=== PATIENT | male | born 1960 | race Caucasian/White ===

== ENCOUNTER 2018-06-15 20:12 | Inpatient (IN) ==
--- NOTE | 2018-06-15 20:42 | ED ---
HPI General Chief complaint: Shortness of Breath/Dyspnea Stated complaint: confusion, trouble breathing Time Seen by Provider: 06/15/18 20:39 Source: patient History of Present Illness HPI narrative: The patient is a 58 year old male who presents to the [facility] emergency department with a history of a history of not feeling well since last week. The patient reports that he underwent endoscopy by a project developer, Dr. Muñoz and was diagnosed with gastroparesis. The patient reports that he was started on 2 new medications reports that he took them for 2 days and they were not helping, therefore he discontinued them. The patient reports that he is continued to have nausea and vomiting daily usually 3 -4 times per day. He denies having any associated diarrhea. He reports that his last bowel movement was yesterday. He denies having any blood in his stool , black or tarry stools, or mucus in his stool. He denies having any chest pain or chest pressure. He does report having some shortness of breath at first began this afternoon. He denies having any abdominal pain. He reports that he has had increasing generalized weakness and today a family member at the bedside reports that he has been confused, hallucinating, and also experiencing intermittent jerking movements today. His family member reports that she is concerned that his eyes have also appeared yellow. His primary care physician is Dr. Rutherford and Theresa Mccrary. The patient's other past medical history is complicated by being on immunosuppressive medications long- term related to a kidney transplant done in 1997. The patient has had a bilateral nephrectomy and has an ileal conduit in place. He reports that his urine has continued to be light yellow in color. He reports that he has continued to have good urine output. The patient reports that his back tender cylinder is and his creatinine on last evaluation was 4. On review of systems otherwise, the patient denies having any fevers, cough, congestion, neck pain, or other neurologic symptoms. Incidentally, the patient reports that for his symptoms he has been drinking Pepto-Bismol and Mylanta on a regular basis. Related Data Home Medications Medication Instructions Recorded Confirmed amlodipine 10 mg PO DAILY 06/15/18 06/15/18 atorvastatin 20 mg PO DAILY 06/15/18 06/15/18 calcitriol 0.5 mcg PO DAILY 06/15/18 06/15/18 cyanocobalamin (vitamin B-12) 1,000 mcg PO DAILY 06/15/18 06/15/18 doxycycline hyclate 100 mg PO DAILY 06/15/18 06/15/18 epoetin pedro [Procrit] 20,000 unit SUBCUT QMONTH 06/15/18 06/15/18 ondansetron HCl [Zofran] 8 mg PO TID PRN 06/15/18 06/15/18 oxycodone-acetaminophen 1 tab PO Q6H PRN 06/15/18 06/15/18 pantoprazole [Protonix] 40 mg PO DAILY 06/15/18 06/15/18 sirolimus 2 mg PO DAILY 06/15/18 06/15/18 tacrolimus 1 mg PO QAM 06/15/18 06/15/18 Allergies Allergy/AdvReac Type Severity Reaction Status Date / Time iron dextran complex Allergy rash Verified 06/15/18 21:01 Review of Systems ROS: all other systems reviewed are negative [facility] Family History Family History Other Family history normal Social History Social History Substance History: No History of Abuse Second Hand Smoke Exposure: No Smoking Status: Never smoker How Often Do You Have a Drink Containing Alcohol: Never Recent Travel in [facility] within the Last 8 Weeks: No Recent Out of Country Travel within the Last 8 Weeks: No Immunization History Tetanus Immunization: Unsure Exam Const General: cooperative, no acute distress and well developed Nutritional Appearance: well nourished Orientation: alert, awake, oriented to person, oriented to place, not oriented to time and confused [facility] Head: normocephalic and atraumatic Nose: no nasal discharge and no epistaxis Mouth: moist mucous membranes Throat: posterior oropharynx normal and uvula midline Eyes Sclera: normal sclerae Pupils: PERRL Neck Neck: no meningeal signs, trachea midline and no JVD Resp Effort & Inspection: no use of accessory muscles Auscultation: clear to auscultation bilaterally Cardio Rate: regular rate Rhythm: regular rhythm Heart Sounds: no murmurs GI Inspection: non-distended and other (The patient has an ileal conduit in place in the right lower quadrant of the abdomen. The patient has a palpable ventral abdominal hernia in the left upper quadrant of the abdomen that is easily reducible. The patient has reported mild discomfort on palpation of the left upper quadrant.) Palpation: soft, no hepatosplenomegaly and nontender Auscultation: normal bowel sounds Back/Spine/Pelvis Back: no CVA tenderness Cervical Spine: No cervical spinal tenderness Thoracic/Lumbar Spine: No thoracic spinal tenderness and No lumbar spinal tenderness Skin General: dry skin (warm) Neuro General: alert, awake and oriented (Oriented to person and place, however not time. The patient is drowsy on examination.) Cranial Nerves: CN's II-XI intact bilaterally Speech: speech normal Motor: movement abnormality noted (The patient has intermittent jerking movements noted.) and strength abnormal (Generalized weakness noted with 4/5 strength in all 4 extremities.) Sensory Exam: no sensory deficits noted Extrem General: normal to inspection (2+ pulses in all 4 extremities), no calf tenderness, no clubbing, no cyanosis and no edema Psych Mood: congruent mood Affect: normal affect Judgment: judgment good Course Initial Documented Vital Signs Temperature 98.8 F 06/15/18 20:18 Pulse Rate 92 H 06/15/18 20:18 Respiratory Rate 18 06/15/18 20:18 Blood Pressure 155/71 H 06/15/18 20:18 Pulse Oximetry 99 06/15/18 20:18 Last Documented Vital Signs Temperature 97.9 F 06/16/18 04:00 Pulse Rate 95 H 06/16/18 07:00 Respiratory Rate 10 L 06/16/18 07:00 Blood Pressure 158/75 H 06/16/18 07:00 Pulse Oximetry 97 06/16/18 07:47 Critical Care Time Critical Care Time: Yes Total Critical Care Time: 37 Attestation: Aggregate critical care time was 37 minutes. Time to perform other separately billable procedures was not included in the critical care time. My time did not include minutes spent treating any other patients simultaneously or on activities that did not directly contribute to the patient's treatment. The services I provided to this patient were to treat and/or prevent clinically significant deterioration that could result in: Electrolyte derangements such as hyperkalemia precipitating cardiac arrhythmia, versus pulmonary edema from renal failure, versus fluid overload from crystalloid resuscitation, versus respiratory failure I provided critical care services requiring my management, as noted below: Chart data review, documentation time, medication orders and management, vital sign assessments/reviewing monitor data, ordering and reviewing lab tests, ordering and interpreting/reviewing x-rays and diagnostic studies, care of the patient and discussion of the patient with the admitting physicians. Medical Decision Making MDM Narrative Medical decision making narrative: During the course of the patient's emergency department visit, the patient's history, examination, and differential diagnosis were reviewed with the patient. The patient was placed on a park attendant with oximetry and frequent blood pressure monitoring. The patient had IV access obtained and blood work sent for analysis. A diagnostic evaluation was started regarding the patient's altered mentation, nausea vomiting, recent diagnosis of gastroparesis. The patient was initially provided normal saline IV fluid bolus, Zofran 4 mg IV for nausea. The patient's diagnostic studies reveals a white count of 7.3, hemoglobin 10.3, platelets 315 with 87.8 neutrophils, PT PTT within normal limits, chemistry is remarkable for sodium of 133, potassium 5.2, CO2 18.4, anion gap is 16, BUN 135 , creatinine 15.65, GFR of 3, alkaline phosphatase 176, lipase within normal limits. The patient's lactic acid is 0.4, CPK is 151, troponin I is less than 0.02, BNP is 245. The patient's chest x-ray showed no acute abnormality. CT scan of the brain showed a motion degraded exam, grossly negative for acute intracranial process. CT scan of the abdomen and pelvis showed nonspecific CT appearance of the abdomen and pelvis with no definite acute findings. The patient is noted to be in acute on chronic renal failure. The patient will be admitted for continued evaluation and treatment. The patient's case including history, pertinent physical examination findings, and laboratory studies were discussed with Dr. Covarrubias. It was agreed that the patient would be admitted to the hospitalist service. The patient's results were discussed with the patient, including the plan of care. I explained that further testing and/ or monitoring is indicated based on the patient's history, examination, and/ or laboratory findings. Therefore, I recommended admission for additional evaluation. The patient expressed understanding and was agreeable with this plan. The patient was admitted to the hospital in guarded condition and sent to a bed under the care of the [facility] service. On evaluation by the hospitalist, Dr. Covarrubias approached me regarding the patient's case and explained that the patient seems more drowsy than previously. I went in to reexamine the patient with her. The patient quickly falls asleep in between questions and is not answering questions in the same way that he was previously. He seems to be having more jerking movements. There is a concern that the patient may be decompensating related to this renal failure. I placed a call out to the back tender cylinder, Dr. Wheeler and discussed the patient with him. The patient had an ABG done that revealed a pH of 7.12, PCO2 47, PO2 78, bicarb 15, base excess -13.2, this was on 3 L nasal cannula O2. The patient appears to becoming more acidotic related to his acute renal failure. He recommended that the patient be admitted to the intensive care unit and that the intensive care doctor place a Vas-Cath for emergent dialysis. This was communicated to the hospitalist, Dr. Covarrubias. She then spoke to Dr. Davison, the police sergeant precinct regarding this case who plans to place a Vas-Cath and then notify Dr. Mix when it is done so that the patient can have dialysis. The patient and the patient's family were updated regularly regarding this evaluation. Medical Screen Exam Complete: Yes Emergency Medical Condition: Yes Differential Diagnosis Differential Diagnosis: Hepatic encephalopathy, versus aspirin toxicity, versus intracranial abnormality, versus hypoglycemic altered mentation, versus electrolyte derangements with encephalopathy Medical Records Medical records reviewed: Yes I reviewed the patient's medical records. Lab Data Lab results reviewed: Yes I reviewed the patient's lab results. Result diagrams: 06/16/18 01:00 06/16/18 01:00 Lab Results 06/15/18 06/15/18 06/15/18 Range/Units 21:16 21:16 21:16 WBC (4.0-11.0) th/mm3 RBC (4.50-5.90) mil/mm3 Hgb (13.0-17.0) gm/dL Hct (39.0-51.0) % MCV (80.0-100.0) fL MCH (27.0-34.0) pg MCHC (32.0-36.0) % RDW (11.6-17.2) % Plt Count (150-450) th/mm3 MPV (7.0-11.0) fL Prelim Diff (Auto) Neut % (Auto) (16.0-70.0) % Lymph % (Auto) (9.0-44.0) % [facility] % (Auto) (0.0-8.0) % Eos % (Auto) (0.0-4.0) % Baso % (Auto) (0.0-2.0) % Neut # (Auto) (1.8-7.7) th/mm3 Lymph # (Auto) (1.0-4.8) th/mm3 [facility] # (Auto) (0.0-0.9) th/mm3 Eos # (Auto) (0.0-0.4) th/mm3 Baso # (Auto) (0.0-0.2) th/mm3 WBC Differential Diff Scan Seg Neuts % (Manual) (16-70) % Band Neuts % (Manual) (0-6) % Lymphocytes % (Manual) (9-44) % Monocytes % (Manual) (0-8) % Eosinophils % (Manual) (0-4) % Abs Neuts (Manual) (1.8-7.7) th/mm3 Differential Comment Toxic Granulation (None) Toxic Vacuolation (None) Platelet Estimate (Normal) Platelet Morphology (Normal) Ovalocytes (None) Acanthocytes (Spur) (None) Keratocytes (None) PT 10.9 (9.8-11.6) sec INR 1.1 Ratio APTT 31.7 (23.4-31.7) sec Puncture Site Patient Temperature O2 Saturation (90-100) % ABG pH (7.380-7.420) ABG pCO2 (38-42) mmHg ABG pO2 (61-120) mmHg ABG HCO3 (22-26) mmol/L ABG O2 Content (12.0-20.0) Vol % ABG Base Excess (-2-2) mmol/L ABG Methemoglobin (0-2) % Hemoglobin (12.0-16.0) G/DL Carboxyhemoglobin (0-4) % O2 Delivery Device Liter Flow L/M Critical Value Sodium (136-145) meq/L Potassium (3.5-5.1) meq/L Chloride (98-107) meq/L Carbon Dioxide (21.0-32.0) meq/L Anion Gap (5-15) meq/L BUN (7-18) mg/dL Creatinine (0.60-1.30) mg/dL Estimated GFR (>89) mL/min POC Glucose (68-110) mg/dl Random Glucose (74-106) mg/dL Lactic Acid 0.4 (0.4-2.0) mmol/L Calcium (8.5-10.1) mg/dL Magnesium 2.7 H (1.5-2.5) mg/dL Total Bilirubin (0.2-1.0) mg/dL AST (15-37) U/L ALT (12-78) U/L Alkaline Phosphatase (45-117) U/L Ammonia (11-32) mcmol/L Total Creatine Kinase 151 (39-308) U/L CK-MB (CK-2) 3.9 H (0.5-3.6) ng/mL Troponin I Less than 0.02 L (0.02-0.05) ng/mL B-Natriuretic Peptide (0-100) pg/mL Total Protein (6.4-8.2) g/dL Albumin (3.4-5.0) g/dL Lipase (73-393) U/L Urine Color (Yellw/Straw) Urine Clarity (Clear) Urine pH (5.0-8.5) Ur Specific [place] (1.002-1.035) Urine Protein (Neg-Trace) mg/dL Urine Glucose (UA) (Negative) mg/dL Urine Ketones (Negative) mg/dL Urine Occult Blood (Negative) Urine Nitrate (Negative) Urine Bilirubin (Negative) Urine Urobilinogen (Less than 2) mg/dL Ur Leukocyte Esterase (Negative) Urine RBC (0-3) /hpf Urine WBC (0-5) /hpf Urine WBC Clumps (None) Amorphous Sediment (None) /hpf Urine Bacteria (None) /hpf Urine Mucus (Occasional) /lpf Micro UA Comment Ur Microscopic Review Urine Culture Comments Nasal Screen MRSA (PCR) (Negative) Salicylates (2.8-20.0) mg/dL Acetaminophen (10.0-30.0) mcg/mL Hepatitis A IgM Ab (Nonreactive) Hep Bs Antigen (Nonreactive) Hep B Core IgM Ab (Nonreactive) Hep C IgG Ab (Nonreactive) 06/15/18 06/15/18 06/15/18 Range/Units 21:16 21:16 21:16 WBC 7.3 (4.0-11.0) th/mm3 RBC 3.81 L (4.50-5.90) mil/mm3 Hgb 10.3 L (13.0-17.0) gm/dL Hct 31.2 L (39.0-51.0) % MCV 81.9 (80.0-100.0) fL MCH 27.0 (27.0-34.0) pg MCHC 33.0 (32.0-36.0) % RDW 16.2 (11.6-17.2) % Plt Count 315 (150-450) th/mm3 MPV 7.4 (7.0-11.0) fL Prelim Diff (Auto) Slide review pending Neut % (Auto) 87.8 H (16.0-70.0) % Lymph % (Auto) 5.9 L (9.0-44.0) % [facility] [facility] % (Auto) 5.4 (0.0-8.0) % Eos % (Auto) 0.4 (0.0-4.0) % Baso % (Auto) 0.5 (0.0-2.0) % Neut # (Auto) 6.4 (1.8-7.7) th/mm3 Lymph # (Auto) 0.4 L (1.0-4.8) th/mm3 [facility] [facility] # (Auto) 0.4 (0.0-0.9) th/mm3 Eos # (Auto) 0.0 (0.0-0.4) th/mm3 Baso # (Auto) 0.0 (0.0-0.2) th/mm3 WBC Differential Manual diff final Diff Scan Seg Neuts % (Manual) 78 H (16-70) % Band Neuts % (Manual) 1 (0-6) % Lymphocytes % (Manual) 15 (9-44) % Monocytes % (Manual) 5 (0-8) % Eosinophils % (Manual) 1 (0-4) % Abs Neuts (Manual) 5.8 (1.8-7.7) th/mm3 Differential Comment . Toxic Granulation 2+ H (None) Toxic Vacuolation (None) Platelet Estimate Normal (Normal) Platelet Morphology Normal (Normal) Ovalocytes 1+ H (None) Acanthocytes (Spur) (None) Keratocytes Occ H (None) PT (9.8-11.6) sec INR Ratio APTT (23.4-31.7) sec Puncture Site Patient Temperature O2 Saturation (90-100) % ABG pH (7.380-7.420) ABG pCO2 (38-42) mmHg ABG pO2 (61-120) mmHg ABG HCO3 (22-26) mmol/L ABG O2 Content (12.0-20.0) Vol % ABG Base Excess (-2-2) mmol/L ABG Methemoglobin (0-2) % Hemoglobin (12.0-16.0) G/DL Carboxyhemoglobin (0-4) % O2 Delivery Device Liter Flow L/M Critical Value Sodium (136-145) meq/L Potassium (3.5-5.1) meq/L Chloride (98-107) meq/L Carbon Dioxide (21.0-32.0) meq/L Anion Gap (5-15) meq/L BUN (7-18) mg/dL Creatinine (0.60-1.30) mg/dL Estimated GFR (>89) mL/min POC Glucose (68-110) mg/dl Random Glucose (74-106) mg/dL Lactic Acid (0.4-2.0) mmol/L Calcium (8.5-10.1) mg/dL Magnesium (1.5-2.5) mg/dL Total Bilirubin (0.2-1.0) mg/dL AST (15-37) U/L ALT (12-78) U/L Alkaline Phosphatase (45-117) U/L Ammonia 22 (11-32) mcmol/L Total Creatine Kinase (39-308) U/L CK-MB (CK-2) (0.5-3.6) ng/mL Troponin I (0.02-0.05) ng/mL B-Natriuretic Peptide 245 H (0-100) pg/mL Total Protein (6.4-8.2) g/dL Albumin (3.4-5.0) g/dL Lipase (73-393) U/L Urine Color (Yellw/Straw) Urine Clarity (Clear) Urine pH (5.0-8.5) Ur Specific [place] (1.002-1.035) Urine Protein (Neg-Trace) mg/dL Urine Glucose (UA) (Negative) mg/dL Urine Ketones (Negative) mg/dL Urine Occult Blood (Negative) Urine Nitrate (Negative) Urine Bilirubin (Negative) Urine Urobilinogen (Less than 2) mg/dL Ur Leukocyte Esterase (Negative) Urine RBC (0-3) /hpf Urine WBC (0-5) /hpf Urine WBC Clumps (None) Amorphous Sediment (None) /hpf Urine Bacteria (None) /hpf Urine Mucus (Occasional) /lpf Micro UA Comment Ur Microscopic Review Urine Culture Comments Nasal Screen MRSA (PCR) (Negative) Salicylates (2.8-20.0) mg/dL Acetaminophen (10.0-30.0) mcg/mL Hepatitis A IgM Ab (Nonreactive) Hep Bs Antigen (Nonreactive) Hep B Core IgM Ab (Nonreactive) Hep C IgG Ab (Nonreactive) 06/15/18 06/15/18 06/15/18 Range/Units 21:16 21:16 21:16 WBC (4.0-11.0) th/mm3 RBC (4.50-5.90) mil/mm3 Hgb (13.0-17.0) gm/dL Hct (39.0-51.0) % MCV (80.0-100.0) fL MCH (27.0-34.0) pg MCHC (32.0-36.0) % RDW (11.6-17.2) % Plt Count (150-450) th/mm3 MPV (7.0-11.0) fL Prelim Diff (Auto) Neut % (Auto) (16.0-70.0) % Lymph % (Auto) (9.0-44.0) % [facility] [facility] % (Auto) (0.0-8.0) % Eos % (Auto) (0.0-4.0) % Baso % (Auto) (0.0-2.0) % Neut # (Auto) (1.8-7.7) th/mm3 Lymph # (Auto) (1.0-4.8) th/mm3 [facility] [facility] # (Auto) (0.0-0.9) th/mm3 Eos # (Auto) (0.0-0.4) th/mm3 Baso # (Auto) (0.0-0.2) th/mm3 WBC Differential Diff Scan Seg Neuts % (Manual) (16-70) % Band Neuts % (Manual) (0-6) % Lymphocytes % (Manual) (9-44) % Monocytes % (Manual) (0-8) % Eosinophils % (Manual) (0-4) % Abs Neuts (Manual) (1.8-7.7) th/mm3 Differential Comment Toxic Granulation (None) Toxic Vacuolation (None) Platelet Estimate (Normal) Platelet Morphology (Normal) Ovalocytes (None) Acanthocytes (Spur) (None) Keratocytes (None) PT (9.8-11.6) sec INR Ratio APTT (23.4-31.7) sec Puncture Site Patient Temperature O2 Saturation (90-100) % ABG pH (7.380-7.420) ABG pCO2 (38-42) mmHg ABG pO2 (61-120) mmHg ABG HCO3 (22-26) mmol/L ABG O2 Content (12.0-20.0) Vol % ABG Base Excess (-2-2) mmol/L ABG Methemoglobin (0-2) % Hemoglobin (12.0-16.0) G/DL Carboxyhemoglobin (0-4) % O2 Delivery Device Liter Flow L/M Critical Value Sodium 133 L (136-145) meq/L Potassium 5.2 H (3.5-5.1) meq/L Chloride 99 (98-107) meq/L Carbon Dioxide 18.4 L (21.0-32.0) meq/L Anion Gap 16 H (5-15) meq/L BUN 135 H (7-18) mg/dL Creatinine 15.65 H* (0.60-1.30) mg/dL Estimated GFR 3 L (>89) mL/min POC Glucose (68-110) mg/dl Random Glucose 98 (74-106) mg/dL Lactic Acid (0.4-2.0) mmol/L Calcium 8.8 (8.5-10.1) mg/dL Magnesium (1.5-2.5) mg/dL Total Bilirubin 0.3 (0.2-1.0) mg/dL AST 15 (15-37) U/L ALT 28 (12-78) U/L Alkaline Phosphatase 176 H (45-117) U/L Ammonia (11-32) mcmol/L Total Creatine Kinase (39-308) U/L CK-MB (CK-2) (0.5-3.6) ng/mL Troponin I (0.02-0.05) ng/mL B-Natriuretic Peptide (0-100) pg/mL Total Protein 8.2 (6.4-8.2) g/dL Albumin 3.8 (3.4-5.0) g/dL Lipase 134 (73-393) U/L Urine Color (Yellw/Straw) Urine Clarity (Clear) Urine pH (5.0-8.5) Ur Specific [place] (1.002-1.035) Urine Protein (Neg-Trace) mg/dL Urine Glucose (UA) (Negative) mg/dL Urine Ketones (Negative) mg/dL Urine Occult Blood (Negative) Urine Nitrate (Negative) Urine Bilirubin (Negative) Urine Urobilinogen (Less than 2) mg/dL Ur Leukocyte Esterase (Negative) Urine RBC (0-3) /hpf Urine WBC (0-5) /hpf Urine WBC Clumps (None) Amorphous Sediment (None) /hpf Urine Bacteria (None) /hpf Urine Mucus (Occasional) /lpf Micro UA Comment Ur Microscopic Review Urine Culture Comments Nasal Screen MRSA (PCR) (Negative) Salicylates 2.9 (2.8-20.0) mg/dL Acetaminophen Less than 2.0 L (10.0-30.0) mcg/mL Hepatitis A IgM Ab (Nonreactive) Hep Bs Antigen (Nonreactive) Hep B Core IgM Ab (Nonreactive) Hep C IgG Ab (Nonreactive) 06/15/18 06/16/18 06/16/18 Range/Units 21:25 00:00 00:50 WBC (4.0-11.0) th/mm3 RBC (4.50-5.90) mil/mm3 Hgb (13.0-17.0) gm/dL Hct (39.0-51.0) % MCV (80.0-100.0) fL MCH (27.0-34.0) pg MCHC (32.0-36.0) % RDW (11.6-17.2) % Plt Count (150-450) th/mm3 MPV (7.0-11.0) fL Prelim Diff (Auto) Neut % (Auto) (16.0-70.0) % Lymph % (Auto) (9.0-44.0) % [facility] [facility] % (Auto) (0.0-8.0) % Eos % (Auto) (0.0-4.0) % Baso % (Auto) (0.0-2.0) % Neut # (Auto) (1.8-7.7) th/mm3 Lymph # (Auto) (1.0-4.8) th/mm3 [facility] # (Auto) (0.0-0.9) th/mm3 Eos # (Auto) (0.0-0.4) th/mm3 Baso # (Auto) (0.0-0.2) th/mm3 WBC Differential Diff Scan Seg Neuts % (Manual) (16-70) % Band Neuts % (Manual) (0-6) % Lymphocytes % (Manual) (9-44) % Monocytes % (Manual) (0-8) % Eosinophils % (Manual) (0-4) % Abs Neuts (Manual) (1.8-7.7) th/mm3 Differential Comment Toxic Granulation (None) Toxic Vacuolation (None) Platelet Estimate (Normal) Platelet Morphology (Normal) Ovalocytes (None) Acanthocytes (Spur) (None) Keratocytes (None) PT (9.8-11.6) sec INR Ratio APTT (23.4-31.7) sec Puncture Site Right brachial Patient Temperature 98.6 O2 Saturation 90 (90-100) % ABG pH 7.12 L* (7.380-7.420) ABG pCO2 47 H (38-42) mmHg ABG pO2 78 (61-120) mmHg ABG HCO3 15 L* (22-26) mmol/L ABG O2 Content 10.7 L (12.0-20.0) Vol % ABG Base Excess -13.2 L (-2-2) mmol/L ABG Methemoglobin 0.7 (0-2) % Hemoglobin 8.4 L (12.0-16.0) G/DL Carboxyhemoglobin 0.6 (0-4) % O2 Delivery Device Nasal cannula Liter Flow 3.00 L/M Critical Value Yes Sodium (136-145) meq/L Potassium (3.5-5.1) meq/L Chloride (98-107) meq/L Carbon Dioxide (21.0-32.0) meq/L Anion Gap (5-15) meq/L BUN (7-18) mg/dL Creatinine (0.60-1.30) mg/dL Estimated GFR (>89) mL/min POC Glucose 113 H (68-110) mg/dl Random Glucose (74-106) mg/dL Lactic Acid (0.4-2.0) mmol/L Calcium (8.5-10.1) mg/dL Magnesium (1.5-2.5) mg/dL Total Bilirubin (0.2-1.0) mg/dL AST (15-37) U/L ALT (12-78) U/L Alkaline Phosphatase (45-117) U/L Ammonia (11-32) mcmol/L Total Creatine Kinase (39-308) U/L CK-MB (CK-2) (0.5-3.6) ng/mL Troponin I (0.02-0.05) ng/mL B-Natriuretic Peptide (0-100) pg/mL Total Protein (6.4-8.2) g/dL Albumin (3.4-5.0) g/dL Lipase (73-393) U/L Urine Color Yellow (Yellw/Straw) Urine Clarity Cloudy H (Clear) Urine pH 5.0 (5.0-8.5) Ur Specific [place] 1.009 (1.002-1.035) Urine Protein 100 H (Neg-Trace) mg/dL Urine Glucose (UA) Negative (Negative) mg/dL Urine Ketones Negative (Negative) mg/dL Urine Occult Blood Moderate H (Negative) Urine Nitrate Negative (Negative) Urine Bilirubin Negative (Negative) Urine Urobilinogen Less than 2 (Less than 2) mg/dL Ur Leukocyte Esterase Large H (Negative) Urine RBC 3 (0-3) /hpf Urine WBC 145 H (0-5) /hpf Urine WBC Clumps Many H (None) Amorphous Sediment Rare H (None) /hpf Urine Bacteria Many H (None) /hpf Urine Mucus Few H (Occasional) /lpf Micro UA Comment Culture indicated Ur Microscopic Review Not Reportable Urine Culture Comments Culture indicated Nasal Screen MRSA (PCR) (Negative) Salicylates (2.8-20.0) mg/dL Acetaminophen (10.0-30.0) mcg/mL Hepatitis A IgM Ab (Nonreactive) Hep Bs Antigen (Nonreactive) Hep B Core IgM Ab (Nonreactive) Hep C IgG Ab (Nonreactive) 06/16/18 06/16/18 06/16/18 Range/Units 01:00 01:00 01:00 WBC 7.1 (4.0-11.0) th/mm3 RBC 3.29 L (4.50-5.90) mil/mm3 Hgb 8.7 L (13.0-17.0) gm/dL Hct 27.2 L (39.0-51.0) % MCV 82.7 (80.0-100.0) fL MCH 26.6 L (27.0-34.0) pg MCHC 32.2 (32.0-36.0) % RDW 16.6 (11.6-17.2) % Plt Count 268 (150-450) th/mm3 MPV 7.6 (7.0-11.0) fL Prelim Diff (Auto) Slide review pending Neut % (Auto) 84.6 H (16.0-70.0) % Lymph % (Auto) 8.0 L (9.0-44.0) % [facility] % (Auto) 6.6 (0.0-8.0) % Eos % (Auto) 0.4 (0.0-4.0) % Baso % (Auto) 0.4 (0.0-2.0) % Neut # (Auto) 6.0 (1.8-7.7) th/mm3 Lymph # (Auto) 0.6 L (1.0-4.8) th/mm3 [facility] # (Auto) 0.5 (0.0-0.9) th/mm3 Eos # (Auto) 0.0 (0.0-0.4) th/mm3 Baso # (Auto) 0.0 (0.0-0.2) th/mm3 WBC Differential . Diff Scan Auto diff confirmed Seg Neuts % (Manual) (16-70) % Band Neuts % (Manual) (0-6) % Lymphocytes % (Manual) (9-44) % Monocytes % (Manual) (0-8) % Eosinophils % (Manual) (0-4) % Abs Neuts (Manual) (1.8-7.7) th/mm3 Differential Comment . Toxic Granulation (None) Toxic Vacuolation Present H (None) Platelet Estimate Normal (Normal) Platelet Morphology Normal (Normal) Ovalocytes 1+ H (None) Acanthocytes (Spur) Occ H (None) Keratocytes Occ H (None) PT (9.8-11.6) sec INR Ratio APTT (23.4-31.7) sec Puncture Site Patient Temperature O2 Saturation (90-100) % ABG pH (7.380-7.420) ABG pCO2 (38-42) mmHg ABG pO2 (61-120) mmHg ABG HCO3 (22-26) mmol/L ABG O2 Content (12.0-20.0) Vol % ABG Base Excess (-2-2) mmol/L ABG Methemoglobin (0-2) % Hemoglobin (12.0-16.0) G/DL Carboxyhemoglobin (0-4) % O2 Delivery Device Liter Flow L/M Critical Value Sodium 137 (136-145) meq/L Potassium 5.1 (3.5-5.1) meq/L Chloride 105 (98-107) meq/L Carbon Dioxide 17.5 L (21.0-32.0) meq/L Anion Gap 15 (5-15) meq/L BUN 132 H (7-18) mg/dL Creatinine 15.27 H* (0.60-1.30) mg/dL Estimated GFR 3 L (>89) mL/min POC Glucose (68-110) mg/dl Random Glucose 89 (74-106) mg/dL Lactic Acid 0.4 (0.4-2.0) mmol/L Calcium 8.2 L (8.5-10.1) mg/dL Magnesium 2.7 H (1.5-2.5) mg/dL Total Bilirubin 0.3 (0.2-1.0) mg/dL AST 13 L (15-37) U/L ALT 23 (12-78) U/L Alkaline Phosphatase 151 H (45-117) U/L Ammonia (11-32) mcmol/L Total Creatine Kinase (39-308) U/L CK-MB (CK-2) (0.5-3.6) ng/mL Troponin I (0.02-0.05) ng/mL B-Natriuretic Peptide (0-100) pg/mL Total Protein 6.8 D (6.4-8.2) g/dL Albumin 3.1 L D (3.4-5.0) g/dL Lipase (73-393) U/L Urine Color (Yellw/Straw) Urine Clarity (Clear) Urine pH (5.0-8.5) Ur Specific [place] (1.002-1.035) Urine Protein (Neg-Trace) mg/dL Urine Glucose (UA) (Negative) mg/dL Urine Ketones (Negative) mg/dL Urine Occult Blood (Negative) Urine Nitrate (Negative) Urine Bilirubin (Negative) Urine Urobilinogen (Less than 2) mg/dL Ur Leukocyte Esterase (Negative) Urine RBC (0-3) /hpf Urine WBC (0-5) /hpf Urine WBC Clumps (None) Amorphous Sediment (None) /hpf Urine Bacteria (None) /hpf Urine Mucus (Occasional) /lpf Micro UA Comment Ur Microscopic Review Urine Culture Comments Nasal Screen MRSA (PCR) (Negative) Salicylates (2.8-20.0) mg/dL Acetaminophen (10.0-30.0) mcg/mL Hepatitis A IgM Ab (Nonreactive) Hep Bs Antigen (Nonreactive) Hep B Core IgM Ab (Nonreactive) Hep C IgG Ab (Nonreactive) 06/16/18 06/16/18 Range/Units 02:55 04:10 WBC (4.0-11.0) th/mm3 RBC (4.50-5.90) mil/mm3 Hgb (13.0-17.0) gm/dL Hct (39.0-51.0) % MCV (80.0-100.0) fL MCH (27.0-34.0) pg MCHC (32.0-36.0) % RDW (11.6-17.2) % Plt Count (150-450) th/mm3 MPV (7.0-11.0) fL Prelim Diff (Auto) Neut % (Auto) (16.0-70.0) % Lymph % (Auto) (9.0-44.0) % [place] % (Auto) (0.0-8.0) % Eos % (Auto) (0.0-4.0) % Baso % (Auto) (0.0-2.0) % Neut # (Auto) (1.8-7.7) th/mm3 Lymph # (Auto) (1.0-4.8) th/mm3 [place] # (Auto) (0.0-0.9) th/mm3 Eos # (Auto) (0.0-0.4) th/mm3 Baso # (Auto) (0.0-0.2) th/mm3 WBC Differential Diff Scan Seg Neuts % (Manual) (16-70) % Band Neuts % (Manual) (0-6) % Lymphocytes % (Manual) (9-44) % Monocytes % (Manual) (0-8) % Eosinophils % (Manual) (0-4) % Abs Neuts (Manual) (1.8-7.7) th/mm3 Differential Comment Toxic Granulation (None) Toxic Vacuolation (None) Platelet Estimate (Normal) Platelet Morphology (Normal) Ovalocytes (None) Acanthocytes (Spur) (None) Keratocytes (None) PT (9.8-11.6) sec INR Ratio APTT (23.4-31.7) sec Puncture Site Patient Temperature O2 Saturation (90-100) % ABG pH (7.380-7.420) ABG pCO2 (38-42) mmHg ABG pO2 (61-120) mmHg ABG HCO3 (22-26) mmol/L ABG O2 Content (12.0-20.0) Vol % ABG Base Excess (-2-2) mmol/L ABG Methemoglobin (0-2) % Hemoglobin (12.0-16.0) G/DL Carboxyhemoglobin (0-4) % O2 Delivery Device Liter Flow L/M Critical Value Sodium (136-145) meq/L Potassium (3.5-5.1) meq/L Chloride (98-107) meq/L Carbon Dioxide (21.0-32.0) meq/L Anion Gap (5-15) meq/L BUN (7-18) mg/dL Creatinine (0.60-1.30) mg/dL Estimated GFR (>89) mL/min POC Glucose (68-110) mg/dl Random Glucose (74-106) mg/dL Lactic Acid (0.4-2.0) mmol/L Calcium (8.5-10.1) mg/dL Magnesium (1.5-2.5) mg/dL Total Bilirubin (0.2-1.0) mg/dL AST (15-37) U/L ALT (12-78) U/L Alkaline Phosphatase (45-117) U/L Ammonia (11-32) mcmol/L Total Creatine Kinase (39-308) U/L CK-MB (CK-2) (0.5-3.6) ng/mL Troponin I (0.02-0.05) ng/mL B-Natriuretic Peptide (0-100) pg/mL Total Protein (6.4-8.2) g/dL Albumin (3.4-5.0) g/dL Lipase (73-393) U/L Urine Color (Yellw/Straw) Urine Clarity (Clear) Urine pH (5.0-8.5) Ur Specific [place] (1.002-1.035) Urine Protein (Neg-Trace) mg/dL Urine Glucose (UA) (Negative) mg/dL Urine Ketones (Negative) mg/dL Urine Occult Blood (Negative) Urine Nitrate (Negative) Urine Bilirubin (Negative) Urine Urobilinogen (Less than 2) mg/dL Ur Leukocyte Esterase (Negative) Urine RBC (0-3) /hpf Urine WBC (0-5) /hpf Urine WBC Clumps (None) Amorphous Sediment (None) /hpf Urine Bacteria (None) /hpf Urine Mucus (Occasional) /lpf Micro UA Comment Ur Microscopic Review Urine Culture Comments Nasal Screen MRSA (PCR) Not detected (Negative) Salicylates (2.8-20.0) mg/dL Acetaminophen (10.0-30.0) mcg/mL Hepatitis A IgM Ab Nonreactive (Nonreactive) Hep Bs Antigen Nonreactive (Nonreactive) Hep B Core IgM Ab Nonreactive (Nonreactive) Hep C IgG Ab Nonreactive (Nonreactive) Imaging Data Radiologist's impression: Abdomen/Pelvis CT 06/15/18 21:01 CONCLUSION: Nonspecific CT appearance of the abdomen and pelvis with no definite acute findings. Chest X-Ray 06/15/18 21:01 CONCLUSION: The lungs are clear. Head CT 06/15/18 21:22 CONCLUSION: Motion degraded exam grossly negative for acute intracranial process. . Head MRI 06/16/18 00:00 CONCLUSION: No acute intracranial findings Chest X-Ray 06/16/18 02:04 CONCLUSION: Vas catheter in satisfactory position. Vascular congestion and developing parenchymal edema. ECG Data Attestation: I personally reviewed and interpreted this ECG as follows: Interpretation: The patient had an EKG done on arrival. The patient's EKG reveals a sinus rhythm heart rate of 89, QRS duration 93 ms, QTC 402 ms. QRS duration is 93 ms, QTC [address] segment elevation. T waves are inverted in aVL. Discharge Plan Discharge Disposition Patient Disposition: ED Admit(ED Internal Use Only) Discharge Order Discharge Orders: ED Use Only Admit Order (Routine); Ordered 06/15/18 Ordered By: Chika Galeana Discharge Details Diagnosis: Acute renal failure, Vomiting Physicians Team ED Provider: Chika Galeana Primary Care Provider: Primary Care Jo Zhong Attending Provider: Hood Glover Other Providers: Timo Mix Discharge Interventions Interventions: Vital Signs Last Done: 06/16/18 00:01 ED Discharge Assessment Last Done: 06/16/18 02:59 Status ED Status: Left Department Discharge Information Discharge Date/Time: 06/16/18 03:05
[2018-06-15] MEDS ORDERED: Sod Chloride 0.9% Inj 1,000 ML IV.SIG ONE (21:01)
[2018-06-15 21:29] LABS: Baso % (Auto) 0.5 % (0.0-2.0); Eos % (Auto) 0.4 % (0.0-4.0); Hematocrit 31.2 % (39.0-51.0); Hemoglobin 10.3 gm/dL (13.0-17.0); Lymph # (Auto) 0.4 th/mm3 (1.0-4.8); Lymph % (Auto) 5.9 % (9.0-44.0); Mean Corpuscular Volume 81.9 fL (80.0-100.0); Mean Platelet Volume 7.4 fL (7.0-11.0); Mono # (Auto) 0.4 th/mm3 (0.0-0.9); Mono % (Auto) 5.4 % (0.0-8.0); Neut # (Auto) 6.4 th/mm3 (1.8-7.7); Neut % (Auto) 87.8 % (16.0-70.0); Platelet Count 315 th/mm3 (150-450); Red Blood Count 3.81 mil/mm3 (4.50-5.90); Red Cell Distribution Width 16.2 % (11.6-17.2); White Blood Count 7.3 th/mm3 (4.0-11.0)
--- NOTE | 2018-06-15 21:38 | XR ---
EXAM DATE: 06/15/2018 9:36 PM EST AGE/SEX: 58 years / Male INDICATIONS: Short of breath. CLINICAL DATA: This is the patient's initial encounter. Patient reports that signs and symptoms have been present for 1 week and indicates a pain score of 3/10. MEDICAL/SURGICAL HISTORY: Hypertension. Gastroparesis. Hyperlipidemia. Spina bifida. Spinal cor d stimulator . COMPARISON: No prior exams available for comparison. FINDINGS: A single AP view of the chest demonstrates the lungs to be symmetrically aerated without evidence of mass, infiltrate or effusion. The cardiomediastinal contours are unremarkable. Osseous structures a re intact. CONCLUSION: The lungs are clear. Electronically signed by: Myron Aaron MD Board Certified Radiologist 06/15/2018 9:37 PM EST
[2018-06-15 21:46] LABS: Activated Partial Thrombo Time 31.7 sec (23.4-31.7); INR 1.1 Ratio; Prothrombin Time 10.9 sec (9.8-11.6)
[2018-06-15 22:00] LABS: Albumin 3.8 g/dL (3.4-5.0); Anion Gap 16 meq/L (5-15); Aspartate Aminotransferase 15 U/L (15-37); Blood Urea Nitrogen 135 mg/dL (7-18); Calcium 8.8 mg/dL (8.5-10.1); Carbon Dioxide 18.4 meq/L (21.0-32.0); Chloride 99 meq/L (98-107); Glomerular Filtration Rate 3 mL/min (>89); Glucose,Random 98 mg/dL (74-106); Lipase 134 U/L (73-393); Potassium 5.2 meq/L (3.5-5.1); Sodium 133 meq/L (136-145)
[2018-06-15 22:02] LABS: Alanine Aminotransferase 28 U/L (12-78); Magnesium 2.7 mg/dL (1.5-2.5)
[2018-06-15 22:04] LABS: Alkaline Phosphatase 176 U/L (45-117); Total Protein 8.2 g/dL (6.4-8.2)
[2018-06-15 22:05] LABS: Creatine Kinase 151 U/L (39-308)
[2018-06-15 22:08] LABS: Eosinophils 1 % (0-4); Lymphocytes 15 % (9-44); Monocytes 5 % (0-8); Ovalocytes 1+
[2018-06-15 22:09] LABS: Platelet Estimate Normal (Normal); Platelet Morphology Normal (Normal); Toxic Granulation 2+
[2018-06-15 22:18] LABS: Creatine Kinase MB 3.9 ng/mL (0.5-3.6)
--- NOTE | 2018-06-15 23:39 | CT ---
EXAM DATE: 06/15/2018 11:32 PM EST AGE/SEX: 58 years / Male INDICATIONS: Confusion. CLINICAL DATA: This is the patient's initial encounter. Patient reports that signs and symptoms have been present for 2 days and indicates a pain score of 7/10. MEDICAL/SURGICAL HISTORY: Gastroparesis. Hypertension. Hyperlipidemia Renal transplant. 1990 RADIATION DOSE: 56.35 CTDI (mGy) COMPARISON: No prior exams available for comparison. TECHNIQUE: CT of the head without contrast. Using automated exposure control and adjustment of the mA and/or kV according to patient size, radiation dose was kept as low as reasonably achievable to ob tain optimal diagnostic quality images. DICOM format image data is available electronically for revi ew and comparison. FINDINGS: The study is mildly degraded by patient motion. Grossly, there is no evidence of hemorrhage. There is no evidence of mass or abnormal fluid accumulation. Ventricles are symmetric and normal. There is no thing to suggest acute infarction. There is mild polypoid mucosal thickening in the right maxillary s inus. CONCLUSION: Motion degraded exam grossly negative for acute intracranial process. . Electronically signed by: Curt Schmidt MD Board Certified Radiologist 06/15/2018 11:37 PM EST
--- NOTE | 2018-06-15 23:44 | CT ---
EXAM DATE: 06/15/2018 11:34 PM EST AGE/SEX: 58 years / Male INDICATIONS: Diffuse abdominal pain. CLINICAL DATA: This is the patient's initial encounter. Patient reports that signs and symptoms have been present for 2 days and indicates a pain score of 7/10. MEDICAL/SURGICAL HISTORY: Hypertension. Gastroparesis. Hyperlipidemia Renal transplant. 1991 RADIATION DOSE: 6.71 CTDI (mGy) COMPARISON: No prior exams available for comparison. TECHNIQUE: Multiple contiguous axial images were obtained through the abdomen. Images were obtained using multiple row detector helical technique. Using automated exposure control and adjustment of the mA and/or kV according to patient size, radiation dose was kept as low as reasonably achievable to o btain optimal diagnostic quality images. DICOM format image data is available electronically for rev iew and comparison. FINDINGS: Lower Lungs: Small right pleural effusion and minimal adjacent compressive atelectasis. Cardiac enlar gement. Liver: The liver has a homogeneous density without space-occupying lesion. There is no dilation of th e biliary tree. Gallbladder mildly distended. Spleen: Homogeneous density without enlargement. Pancreas: Unremarkable without mass or calcification. Kidneys: [place] kidneys not seen. Left lower quadrant transplant kidney without evidence of hydronep hrosis. Adrenal Glands: Unremarkable. Aorta: The aorta and proximal iliac vessels are grossly unremarkable without aneurysmal dilation. Bowel/Mesentery: The bowel loops are grossly unremarkable. The cecum and sigmoid colon have a normal configuration. Abdominal Wall: Right lower quadrant ostomy. Retroperitoneum: No evidence of adenopathy in the retrocrural, para-aortic, or deep pelvic regions. Bladder: Decompressed Reproductive Organs: No abnormal masses or calcifications seen. Inguinal: Fat-containing right inguinal hernia Bony Structures: Thoracic spinal stimulator with control unit over the left iliac crest. 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 Electronically signed by: Curt Schmidt MD Board Certified Radiologist 06/15/2018 11:43 PM EST
[2018-06-16 00:25] LABS: Amorphous Sediment,Urine Rare /hpf; Bacteria,Urine Many /hpf; Bilirubin,Urine Negative (Negative); Clarity,Urine Cloudy (Clear); Color,Urine Yellow (Yellw/Straw); Glucose,Urine (UA) Negative (Negative); Leukocyte Esterase,Urine Large (Negative); Mucus,Urine Few /lpf (Occasional); Nitrite,Urine Negative (Negative); Specific Gravity,Urine 1.009 (1.002-1.035)
[2018-06-16 01:06] LABS: ABG Base Excess -13.2 mmol/L (-2-2); ABG PCO2 47 mmHg (38-42); ABG PO2 78 mmHg (61-120)
[2018-06-16 01:09] LABS: Baso % (Auto) 0.4 % (0.0-2.0); Eos % (Auto) 0.4 % (0.0-4.0); Hematocrit 27.2 % (39.0-51.0); Hemoglobin 8.7 gm/dL (13.0-17.0); Lymph # (Auto) 0.6 th/mm3 (1.0-4.8); Mean Corpuscular HGB Conc 32.2 % (32.0-36.0); Mean Corpuscular Hemoglobin 26.6 pg (27.0-34.0); Mean Corpuscular Volume 82.7 fL (80.0-100.0); Mean Platelet Volume 7.6 fL (7.0-11.0); Mono # (Auto) 0.5 th/mm3 (0.0-0.9); Mono % (Auto) 6.6 % (0.0-8.0); Neut % (Auto) 84.6 % (16.0-70.0); Platelet Count 268 th/mm3 (150-450); Red Blood Count 3.29 mil/mm3 (4.50-5.90); Red Cell Distribution Width 16.6 % (11.6-17.2); White Blood Count 7.1 th/mm3 (4.0-11.0)
[2018-06-16 01:26] LABS: Anion Gap 15 meq/L (5-15)
[2018-06-16 01:40] LABS: Acanthocytes Occ; Ovalocytes 1+; Platelet Estimate Normal (Normal); Platelet Morphology Normal (Normal)
[2018-06-16 01:42] LABS: Alanine Aminotransferase 23 U/L (12-78); Albumin 3.1 g/dL (3.4-5.0); Alkaline Phosphatase 151 U/L (45-117); Aspartate Aminotransferase 13 U/L (15-37); Blood Urea Nitrogen 132 mg/dL (7-18); Calcium 8.2 mg/dL (8.5-10.1); Carbon Dioxide 17.5 meq/L (21.0-32.0); Chloride 105 meq/L (98-107); Glomerular Filtration Rate 3 mL/min (>89); Glucose,Random 89 mg/dL (74-106); Magnesium 2.7 mg/dL (1.5-2.5); Potassium 5.1 meq/L (3.5-5.1); Sodium 137 meq/L (136-145); Total Protein 6.8 g/dL (6.4-8.2); Toxic Vacuolation Present
[2018-06-16] MEDS ORDERED: Acetaminophen 325 MG Tablet PO PRN ×3 (01:43→19:47)
[2018-06-16] MEDS ORDERED: Bisacodyl 10 MG Supp RECTAL PRN (01:43)
--- NOTE | 2018-06-16 02:00 | P.HPIM ---
History of Present Illness Primary Care Physician: Jo Primary Care Physician 58-year-old male with past medical history significant for chronic kidney disease secondary to renal transplantation secondary to renal failure as a teenager, hypertension and hyperlipidemia presents to the emergency department for the evaluation of altered mental status. The patient's who is bedside provides most of the history. She reports that the patient has had a several week history of nausea and postprandial emesis with associated weight loss and anorexia. He had an EGD done last week and was diagnosed with gastroparesis. He was slated to have a gastric emptying test done although this is not yet been completed. Aside from this, the patient has been in his usual state of health until yesterday evening when his came home from work and found him confused with involuntary twitching. She was able to arouse the patient however he remained confused and slow to answer questions. They came to the emergency department for further evaluation. The patient's seafood packer is Dr. Nicole in [facility]. The patient's creatinine is usually around 4. BUN/creatinine in the emergency department today was 135/ 15.65. At the time of our interview, the patient is extremely drowsy and unable to answer simple questions such as his name or the year. Reevaluation by the emergency department physician showed an acute mental status change. The on-call seafood packer was contacted and recommended urgent dialysis. Inpatient Certification Inpatient Certification: I certify that the inpatient services were ordered in accordance with Medicare regulations governing the order. This includes certification that hospital inpatient services are reasonable and necessary and in the case of services not specified as inpatient-only under 42 CFR 419.22(n), that they are appropriately provided as inpatient services in accordance to with the 2-midnight benchmark under 43 CFR 412.3(e) Estimated Total Length of Stay (Days): 3 Plans for Post Hospital Care: Not yet determined Review of Systems ROS Unobtainable: unobtainable due to mental status PMFSH Medical History Medical History CKD (chronic kidney disease) (Acute) Gastroparesis (Acute) Hyperlipidemia (Acute) Hypertension (Acute) Kidney transplant candidate (Acute) Spina bifida (Acute) Spinal cord stimulator status (Acute) Surgical History Surgical History Status post insertion of spinal cord stimulator (Acute) Status post kidney transplant (Acute) Family History Family History Other Family history normal Social History Social History Substance History: No History of Abuse Second Hand Smoke Exposure: No Smoking Status: Never smoker How Often Do You Have a Drink Containing Alcohol: Never Recent Travel in [facility] within the Last 8 Weeks: No Recent Out of Country Travel within the Last 8 Weeks: No Immunization History Tetanus Immunization: Unsure Medications and Allergies Allergies Allergy/AdvReac Type Severity Reaction Status Date / Time iron dextran complex Allergy rash Verified 06/15/18 21:01 Home Medications Medication Instructions Recorded Confirmed Type amlodipine 10 mg PO DAILY 06/15/18 06/15/18 History atorvastatin 20 mg PO DAILY 06/15/18 06/15/18 History calcitriol 0.5 mcg PO DAILY 06/15/18 06/15/18 History cyanocobalamin (vitamin B-12) 1,000 mcg PO DAILY 06/15/18 06/15/18 History doxycycline hyclate 100 mg PO DAILY 06/15/18 06/15/18 History epoetin pedro [Procrit] 20,000 unit SUBCUT QMONTH 06/15/18 06/15/18 History ondansetron HCl [Zofran] 8 mg PO TID PRN 06/15/18 06/15/18 History oxycodone-acetaminophen 1 tab PO Q6H PRN 06/15/18 06/15/18 History pantoprazole [Protonix] 40 mg PO DAILY 06/15/18 06/15/18 History sirolimus 2 mg PO DAILY 06/15/18 06/15/18 History tacrolimus 1 mg PO QAM 06/15/18 06/15/18 History Active Medications: Active Medications Acetaminophen (Tylenol) 650 mg PO Q4H PRN PRN Reason: Temp > 100.4 Al Hydroxide/Mg Hydroxide (Milk Of Magnesia Liq) 30 ml PO Q12H PRN PRN Reason: Mild Constipation Bisacodyl (Dulcolax Supp) 10 mg RECTAL DAILY PRN PRN Reason: SEVERE CONSITIPATION Lactulose (Lactulose Liq) 30 ml PO DAILY PRN PRN Reason: SEVERE CONSITIPATION Ondansetron HCl (Zofran Inj) 4 mg IV.PUSH Q6H PRN PRN Reason: NAUSEA OR VOMITING Senna/Docusate Sodium (Nikkie-Colace) 1 tab PO BID TEETEE Sennosides (Senokot) 17.2 mg PO Q12H PRN PRN Reason: Moderate Constipation Sodium Chloride (Ns Flush) 2 ml IV.FLUSH PRN PRN PRN Reason: FLUSH AFTER USING IV ACCESS Sodium Chloride (Ns Flush) 2 ml IV.FLUSH BID TEETEE Sodium Chloride (Ns Flush) 2 ml IV.FLUSH PRN PRN PRN Reason: FLUSH AFTER USING IV ACCESS Physical Exam Vital signs: Vital Signs 06/15/18 20:18 06/15/18 20:21 06/15/18 22:35 Temperature 98.8 F Pulse Rate 92 H 89 Respiratory Rate 18 20 Blood Pressure 155/71 H 177/81 H Pulse Oximetry 99 99 97 06/16/18 00:01 Temperature Pulse Rate 91 H Respiratory Rate 20 Blood Pressure 135/67 Pulse Oximetry 99 Intake & Output 06/15/18 06/15/18 06/16/18 06:59 18:59 06:59 Intake Total 1000 / 1000 Balance 1000 / 1000 Weight 76.204 kg Intake: IV 1000 / 1000 NS Inj 1,000 ML @ Wide Open IV. 1000 / 1000 SIG BOLUS ONE Rx#:[id number] Narrative: Gen.: Difficult to arouse Head: Normocephalic. Atraumatic. EENT: Pupils equal round and reactive to light. Nose without drainage. Airway intact. Throat without injection. Cardiovascular: Regular rate and rhythm. No murmurs, rubs or gallops. Respiratory: Lungs clear to auscultation bilaterally. No wheezes or rhonchi. Abdomen: Soft, nontender, nondistended. No peritoneal signs. Musculoskeletal: No gross deformities. No edema. Skin: No obvious rashes or erythema. Neuro: Unable to answer simple questions and follow commands. Moves all 4 extremities spontaneously. Results Labs CBC & Chem 7: 06/16/18 01:00 06/16/18 01:00 Imaging Impressions Abdomen/Pelvis CT 06/15/18 21:01 CONCLUSION: Nonspecific CT appearance of the abdomen and pelvis with no definite acute findings. Chest X-Ray 06/15/18 21:01 CONCLUSION: The lungs are clear. Head CT 06/15/18 21:22 CONCLUSION: Motion degraded exam grossly negative for acute intracranial process. . Caprini VTE Risk Assessment Caprini VTE Risk Assessment: Moderate/High Risk (score >= 2) Caprini Risk Assessment Model: Point Value = 1 Point Value = 2 Point Value = 3 Point Value = 5 Age 41-60 Minor surgery BMI > 25 kg/m2 Swollen legs Varicose veins or History of unexplained or recurrent spontaneous Oral contraceptives or hormone replacement Sepsis (< 1 month) Serious lung disease, including pneumonia (< 1 month) Abnormal pulmonary function Acute myocardial infarction Congestive heart failure (< 1 month) History of inflammatory bowel disease Medical patient at bed rest Age 61-74 Arthroscopic surgery Major open surgery (> 45 min) Laparoscopic surgery (> 45 min) Malignancy Confined to bed (> 72 hours) Immobilizing plaster cast Central venous access Age >= 75 History of VTE Family history of VTE Factor V Leiden Prothrombin [id number] Lupus anticoagulant Anticardiolipin antibodies Elevated serum homocysteine Heparin-induced thrombocytopenia Other congenital or acquired thrombophilia Stroke (< 1 month) Elective arthroplasty Hip, pelvis, or leg fracture Acute spinal cord injury (< 1 month) Prophylaxis Regimen: Total Risk Factor Score Risk Level Prophylaxis Regimen 0-1 Low Early ambulation 2 Moderate Order ONE of the following: *Sequential Compression Device (SCD) *Heparin 5000 units SQ BID 3-4 Higher Order ONE of the following medications: *Heparin 5000 units SQ TID *Enoxaparin/Lovenox 40 mg SQ daily (WT < 150 kg, CrCl > 30 mL/min) *Enoxaparin/Lovenox 30 mg SQ daily (WT < 150 kg, CrCl > 10-29 mL/min) *Enoxaparin/Lovenox 30 mg SQ BID (WT < 150 kg, CrCl > 30 mL/min) AND/OR *Sequential Compression Device (SCD) 5 or more Highest Order ONE of the following medications: *Heparin 5000 units SQ TID (Preferred with Epidurals) *Enoxaparin/Lovenox 40 mg SQ daily (WT < 150 kg, CrCl > 30 mL/min) *Enoxaparin/Lovenox 30 mg SQ daily (WT < 150 kg, CrCl > 10-29 mL/min) *Enoxaparin/Lovenox 30 mg SQ BID (WT < 150 kg, CrCl > 30 mL/min) AND *Sequential Compression Device (SCD) Assessment and Plan Plan Assessment/plan: 1. Acute renal failure in setting of renal transplantation Patient underwent bilateral nephrectomy with known donor renal transplant in 1989 at [facility] BUN/creatinine 135/15.65 Baseline creatinine approximately [address] Nicole in [place] ABG showed metabolic acidosis 7.1/47.1/77.8/14.5 Nephrology consulted stat given patient's declining mental status - ED physician spoke with Dr. Mix who recommended urgent dialysis Hybrid Technologist consulted to Place Vas-Cath 2. Hypertension/hyperlipidemia Continue home medications 3. Chronic back pain secondary to spina bifida Patient with spinal stimulator in place
--- NOTE | 2018-06-16 02:22 | P.PCN ---
Date of procedure: 06/15/18 Pre-op diagnosis: Acute renal failure Post-op diagnosis: same Procedure: Hemodialysis catheter placement A time-out was completed verifying correct patient, procedure, site, positioning , and special equipment if applicable. The patient was placed in a dependent position appropriate for central line placement based on the vein to be cannulated. The patients left neck was prepped and draped in sterile fashion. 1 % Lidocaine was used to anesthetize the surrounding skin area. A double lumen 14 [place] hemodialysis catheter was introduced into the the internal jugular vein using the Seldinger technique and under ultrasound guidance. The catheter was threaded smoothly over the guide wire and appropriate blood return was obtained. Each lumen of the catheter was evacuated of air and flushed with sterile saline. The catheter was then sutured in place to the skin and a sterile dressing applied. Perfusion to the extremity distal to the point of catheter insertion was checked and found to be adequate. Estimated Blood Loss: 1ml The patient tolerated the procedure well and there were no complications.
--- NOTE | 2018-06-16 02:49 | XR ---
EXAM DATE: 06/16/2018 2:45 AM EST AGE/SEX: 58 years / Male INDICATIONS: Central line placement. CLINICAL DATA: This is the patient's subsequent encounter. Patient reports that signs and symptoms h ave been present for 1 day and indicates a pain score of Nonresponsive. MEDICAL/SURGICAL HISTORY: . Hypertension. Gastroparesis. Hyperlipidemia. Spina bifida. . Spin al cord stimulator. COMPARISON: [facility], CHEST 1V SINGLE AP, 06/15/2018. . FINDINGS: Left neck Vas-Cath is present with tip extending in the SVC. There is vascular congestion and diffuse mild parenchymal lung edema. Cardiac contours are satisfactory. CONCLUSION: Vas catheter in satisfactory position. Vascular congestion and developing parenchymal edema. Electronically signed by: Curt Schmidt MD Board Certified Radiologist 06/16/2018 2:48 AM EST
--- NOTE | 2018-06-16 02:52 | MR ---
EXAM DATE: 06/16/2018 2:21 AM EST AGE/SEX: 58 years / Male INDICATIONS: Altered mental status. CLINICAL DATA: This is the patient's initial encounter. Patient reports that signs and symptoms have been present for 1 day and indicates a pain score of 0/10. MEDICAL/SURGICAL HISTORY: Hypercholesterolemia. Hypertension. Renal failure, chronic. Renal t ransplant. Spinal cord stimulator. COMPARISON: [facility] [place] ABDOMEN & PELVIS W/O CONTRAST, 06/15/2018. . TECHNIQUE: Multiplanar, multisequence examination of the brain was performed without contrast. FINDINGS: Cerebrum: The ventricles are normal for age. No evidence of midline shift, mass lesion, hemorrhage or acute infarction. No extraaxial fluid collections are seen. The pituitary gland and suprasellar cistern are normal in configuration. White Matter: No significant signal abnormalities are seen in the white matter. Posterior Fossa: The cerebellum and brainstem are intact. The 4th ventricle is midline. The cerebel lopontine angle is unremarkable. The cerebellar tonsils are normal in position. Diffusion Imaging: No focal areas of restricted diffusion are seen. No evidence of acute infarction . Extracranial: Mild polypoid mucosal thickening in the right maxillary sinus. Orbits symmetric and no rmal CONCLUSION: No acute intracranial findings Electronically signed by: Curt Schmidt MD Board Certified Radiologist 06/16/2018 2:50 AM EST
[2018-06-16] MEDS: Chlorhexidine Gluconate 2% 1 Pack (2 Cloths) TOPICAL SCH (03:24)
[2018-06-16] MEDS ORDERED: Chlorhexidine Gluconate 2% 1 Pack (2 Cloths) TOPICAL PRN (04:00)
[2018-06-16] MEDS ORDERED: SIROLIMUS 2 MG PO SCH (06:00)
[2018-06-16 06:27] LABS: Hepatitis A IgM Antibody Nonreactive (Nonreactive); Hepatitits B Surface Antigen Nonreactive (Nonreactive)
[2018-06-16] MEDS: Senna/Docusate Sodium 8.6/50 MG Tablet PO SCH ×2 (08:49→21:15)
[2018-06-16] MEDS: amLODIPine 10 MG Tablet PO SCH (08:49)
--- NOTE | 2018-06-16 09:30 | P.PNIM ---
Subjective Interval history: Patient seen and examined in ICU. Patient's was in the room. Patient is sleepy this morning, had a 2 hours session of hemodialysis in the [facility]. Physical Exam Vital signs: Vital Signs 06/15/18 20:18 06/15/18 20:21 06/15/18 22:35 Temperature 98.8 F Pulse Rate 92 H 89 Respiratory Rate 18 20 Blood Pressure 155/71 H 177/81 H Pulse Oximetry 99 99 97 06/16/18 00:01 06/16/18 02:55 06/16/18 02:59 Temperature 97.9 F Pulse Rate 91 H 93 H 90 Respiratory Rate 20 17 15 Blood Pressure 135/67 135/104 H 147/73 H Pulse Oximetry 99 98 94 L 06/16/18 03:40 06/16/18 04:00 06/16/18 04:15 Temperature 97.9 F Pulse Rate 93 H 89 Respiratory Rate 18 19 Blood Pressure 157/70 H 177/80 H Pulse Oximetry 96 95 97 06/16/18 04:30 06/16/18 04:45 06/16/18 04:47 Temperature Pulse Rate 88 90 88 Respiratory Rate 8 L 9 L 12 Blood Pressure 181/79 H 195/84 H 153/70 H Pulse Oximetry 94 L 94 L 94 L 06/16/18 05:00 06/16/18 05:15 06/16/18 05:30 Temperature Pulse Rate 89 87 85 Respiratory Rate 9 L 9 L 9 L Blood Pressure 177/93 H 167/72 H 156/70 H Pulse Oximetry 93 L 95 96 06/16/18 05:45 06/16/18 06:00 06/16/18 06:15 Temperature Pulse Rate 85 83 81 Respiratory Rate 9 L 10 L 10 L Blood Pressure 165/74 H 170/74 H 183/81 H Pulse Oximetry 97 97 97 06/16/18 06:43 06/16/18 06:44 06/16/18 07:00 Temperature Pulse Rate 89 99 H 95 H Respiratory Rate 17 12 10 L Blood Pressure 203/102 H 160/75 H 158/75 H Pulse Oximetry 92 L 98 99 06/16/18 07:47 06/16/18 08:00 06/16/18 09:00 Temperature 98.2 F Pulse Rate 81 110 H Respiratory Rate 28 H 17 Blood Pressure 165/72 H 168/74 H Pulse Oximetry 97 93 L 96 Intake & Output 06/15/18 06/16/18 06/16/18 18:59 06:59 18:59 Intake Total 1000 / 1000 Output Total 500 / 500 Balance 500 / 500 Weight 74.4 kg Intake: IV 1000 / 1000 NS Inj 1,000 ML @ Wide Open IV. 1000 / 1000 SIG BOLUS ONE Rx#:[id number] Output: Hemodialysis Amount 500 / 500 Other: Date of Last Bowel Movement 06/14/18 06/14/18 Weight On Admission 74.4 kg Narrative: GENERAL:middle aged man, not in distress, sleeping in bed. Awoke to name call. HEENT:not pale,anicteric NECK:LIJ hemodialysis catheter in place. CARDIOVASCULAR: Regular rate and rhythm without murmurs, gallops, or rubs. RESPIRATORY: Clear to auscultation. Breath sounds equal bilaterally. No wheezes , rales, or rhonchi. GASTROINTESTINAL: Abdomen soft, non-tender, nondistended. Normal active bowel sounds MUSCULOSKELETAL: Extremities without clubbing, cyanosis, or edema. NEURO: patient drowsy but awakens to name. Results Labs CBC & Chem 7: 06/16/18 11:12 06/16/18 11:12 Imaging Imaging: Impressions Abdomen/Pelvis CT 06/15/18 21:01 CONCLUSION: Nonspecific CT appearance of the abdomen and pelvis with no definite acute findings. Chest X-Ray 06/15/18 21:01 CONCLUSION: The lungs are clear. Head CT 06/15/18 21:22 CONCLUSION: Motion degraded exam grossly negative for acute intracranial process. . Head MRI 06/16/18 00:00 CONCLUSION: No acute intracranial findings Chest X-Ray 06/16/18 02:04 CONCLUSION: Vas catheter in satisfactory position. Vascular congestion and developing parenchymal edema. Assessment and Plan Plan 58 yo M with CKD,h/o bilateral nephrectomy, s/p renal transplant, HTN, Hyperlipidemia who presented with altered mental state, found to be uremic with BUN/Cr 135/15.5 and had metabolic acidosis on presentation. He has been initiated on hemodialysis, had a 2 hour session early this morning. continue to monitor mental state. Potassium acceptable. Nephrology following. HTN:BP elevated at 160's range, resume home medication. Hyperlipidemia-continue home medication. Anemia secondary to CKD:patient was receiving procrit in outpatient setting. defer to nephrology for management. Hemoglobin currently below target. 12:21pm--got page that patient was more obtunded. requested abg which showed resp acidosis with CO2 of 74. Patient was emergently intubated and placed on mechanical ventilation. Will transfer care to dial marker's service. Progress Note: Quality VTE Deep Vein Thrombosis/Pulmonary Embolism Present on Admission: No
[2018-06-16 11:46] LABS: Baso % (Auto) 0.2 % (0.0-2.0); Hematocrit 27.6 % (39.0-51.0); Hemoglobin 9.1 gm/dL (13.0-17.0); Lymph # (Auto) 0.2 th/mm3 (1.0-4.8); Lymph % (Auto) 2.4 % (9.0-44.0); Mean Corpuscular HGB Conc 32.8 % (32.0-36.0); Mean Corpuscular Hemoglobin 26.8 pg (27.0-34.0); Mean Corpuscular Volume 81.7 fL (80.0-100.0); Mean Platelet Volume 7.5 fL (7.0-11.0); Mono # (Auto) 0.2 th/mm3 (0.0-0.9); Neut # (Auto) 9.2 th/mm3 (1.8-7.7); Neut % (Auto) 95.4 % (16.0-70.0); Platelet Count 264 th/mm3 (150-450); Red Blood Count 3.38 mil/mm3 (4.50-5.90); Red Cell Distribution Width 16.5 % (11.6-17.2); White Blood Count 9.7 th/mm3 (4.0-11.0)
[2018-06-16 12:20] LABS: Calcium 8.4 mg/dL (8.5-10.1); Potassium 4.2 meq/L (3.5-5.1)
[2018-06-16 12:38] LABS: ABG Base Excess -7.1 mmol/L (-2-2); ABG PCO2 74 mmHg (38-42); ABG PO2 91 mmHG (61-120)
[2018-06-16] MEDS ORDERED: Etomidate Inj 40 MG/20 ML Vial IV.PUSH ONE (12:38)
[2018-06-16] MEDS ORDERED: Sodium Bicarbonate 8.4% Inj 50 MEQ/50 ML Syringe ONE (12:47)
[2018-06-16] MEDS ORDERED: Propofol Inj 500 MG/50 ML Vial ONE (12:47)
--- NOTE | 2018-06-16 12:55 | P.PCN ---
Date of procedure: 06/16/18 Pre-op diagnosis: Severe acidosis, encephalopathy Post-op diagnosis: same Procedure: Endotracheal intubation PROCEDURE SUMMARY: The patient was placed on appropriate morning sniffing position. Rapid Sequence Intubation was conducted. The patient received 20 mg IV push of etomidate, rocuronium 50 mg IV. Cricoid pressure was maintained from time induction agent was given to time of cuff balloon inflation. Using a direct laryngoscope # 4 blade grade 1 view was obtained and patient was intubated with a size 8.0 endotracheal tube with stylet on the first attempt. The stylet was removed and cuff balloon was inflated. Appropriate endotracheal tube position was confirmed by direct visualization of vocal cord passage, fogging of the tube, CO2 colometric indicator and symmetric breath sounds. The tube was secured at 24 cm at the lips. Post intubation chest x-ray is pending at this time. Anesthesia: GETA Surgeon: Ryan Elias Estimated blood loss (mL): 0 Pathology: none sent Condition: critical Disposition: ICU
[2018-06-16] MEDS ORDERED: fentaNYL 10 mcg/mL Premix Drip 2,500 MCG/250 ML BAG IV.SIG PRN (14:07)
[2018-06-16 14:29] LABS: ABG Base Excess -5.8 mmol/L (-2-2); ABG PCO2 32 mmHg (38-42); ABG PO2 55 mmHG (61-120)
[2018-06-16] MEDS: Propofol 1000 mg/100 ml Inj 1,000 MG/100 ML BOTTLE IV.CONT PRN ×2 (14:51→19:45)
--- NOTE | 2018-06-16 15:16 | XR ---
EXAM DATE: 06/16/2018 3:10 PM EST AGE/SEX: 58 years / Male INDICATIONS: Post intubation. Evaluate et tube placement. CLINICAL DATA: This is the patient's subsequent encounter. Patient reports that signs and symptoms h ave been present for 3 days and indicates a pain score of Nonresponsive. MEDICAL/SURGICAL HISTORY: Non-responsive. Non-responsive. COMPARISON: C, CHEST 1V SINGLE AP, 06/16/2018. . FINDINGS: A single AP portable erect view of the chest was obtained and demonstrates interval intubation with t he endotracheal tube tip at the level of the mariela pointed into the right mainstem bronchus. A nasog astric tube is been placed and is seen coursing through the esophagus into the stomach. The left inte rnal jugular central venous line remains in place. No confluent infiltrates or effusions are present. The bony thorax remains intact. CONCLUSION: 1. Interval intubation. The tip of the endotracheal tube is at the level of the mariela pointing into the right mainstem bronchus could be pulled back several centimeters. 2. Interval placement of nasogastric tube. 3. No acute cardiopulmonary disease. Electronically signed by: Elie Jamison MD Board Certified Radiologist 06/16/2018 3:15 PM EST
--- NOTE | 2018-06-16 16:34 | P.CONCC ---
History of Present Illness Service: ICU Consult date: 06/16/18 Requesting Physician: Hood Glover Reason for Consult: Acute hypercapnic and hypoxemic respiratory failure Primary Care Provider: No Primary Care Physician Chief Complaint: Altered mental status History of Present Illness: This is a 58-year-old male that presented last evening to ED, with malaise and GI discomfort. The patient relates to having problems with abdominal discomfort and had been worked up by gastroenterology at [place] for gastroparesis. The patient continued to worsen so he presented to the emergency room at [place] the patient medical history is significant for bilateral nephrectomies and status post kidney transplant in 1997 the patient also has a ileal conduit in place .Laboratory and imaging studies were performed last evening,and it was felt that the patient needed emergent dialysis . A vascular catheter was placed, the patient was transferred to ICU and underwent IHD with approximately 2 L removed. Patient's additional medical history is significant for gastroparesis, hypertension and hyperlipidemia . This a.m., the patient noted to become progressively lethargic, obtunded and ABG was performed and the patient was noted to have a mixed acidosis with a base CO2 of 90 and a base excess of -7. The patient was emergently intubated and critical care medicine was consulted. Review of Systems unobtainable due to endotracheal tube, unobtainable due to mental condition PMFSH - History History Provided By: Patient - Medical History Medical History: Medical History (Last Reviewed 06/16/18 @ 06:39 by Amy Ramsay) CKD (chronic kidney disease) Gastroparesis Hyperlipidemia Hypertension Kidney transplant candidate Spina bifida Spinal cord stimulator status - Surgical History Surgical History: Surgical History (Last Reviewed 06/16/18 @ 06:39 by Amy Ramsay) Status post insertion of spinal cord stimulator Status post kidney transplant - Family History Family History: Family History (Last Reviewed 06/16/18 @ 06:39 by Amy Ramsay) Other Family history normal - Tobacco History Second Hand Smoke Exposure: No Smoking Status: Never smoker - Alcohol History How Often Do You Have a Drink Containing Alcohol: Never - Substance Use History Substance History: No History of Abuse - Travel History Recent Travel in the [place] Within the Last 8 Weeks: No Recent Travel Out of the Country Within the Last 8 Weeks: No - Immunization History Tetanus Immunization: Unsure Medications and Allergies Active Medications: Active Medications Acetaminophen (Tylenol) 650 mg PO Q4H PRN PRN Reason: Temp > 100.4 Al Hydroxide/Mg Hydroxide (Milk Of Magnesia Liq) 30 ml PO Q12H PRN PRN Reason: Mild Constipation Albuterol (Duoneb Neb (Prn)) 1 ampul NEB Q2HR NEB PRN PRN Reason: SHORTNESS OF BREATH Albuterol (Duoneb Neb (Madan)) 1 ampul NEB Q4HR NEB MADAN Amlodipine Besylate (Norvasc) 10 mg PO DAILY [facility] Last Admin: 06/16/18 08:49 Dose: Not Given Atorvastatin Calcium (Lipitor) 20 mg PO DAILY [facility] Last Admin: 06/16/18 08:49 Dose: Not Given Bisacodyl (Dulcolax Supp) 10 mg RECTAL DAILY PRN PRN Reason: SEVERE CONSITIPATION Chlorhexidine Gluconate (Chlorhexidine 2% Cloth) 3 pack TOPICAL DAILY@0400 MADAN Stop: 06/21/18 03:59 Last Admin: 06/16/18 03:24 Dose: 3 pack Chlorhexidine Gluconate (Chlorhexidine 2% Cloth) 3 pack TOPICAL DAILY@0400 PRN PRN Reason: Extra cloth needed Stop: 06/21/18 03:59 Chlorhexidine Gluconate (Peridex 0.12% Oral Kit) 15 ml OROPHARYNG BID@0800, 2000 [facility] Fentanyl (Fentanyl 10 Mcg/Ml Premix Drip) 2,500 mcg in 250 mls @ 5 mls/hr IV.SIG TITRATE PRN; Protocol PRN Reason: Per Protocol Last Admin: 06/16/18 14:39 Dose: 50 mcg/hr, 5 mls/hr Propofol (Diprivan 1000 Mg/100 Ml Inj) 1,000 mg in 100 mls @ 2.232 mls/hr IV.CONT TITRATE PRN; Protocol PRN Reason: Per Protocol Last Admin: 06/16/18 14:51 Dose: 50 mcg/kg/min, 22.32 mls/hr Lactulose (Lactulose Liq) 30 ml PO DAILY PRN PRN Reason: SEVERE CONSITIPATION Miscellaneous Medication () 1 each OROPHARYNG 0000,0400,1200,1600 [facility] Ondansetron HCl (Zofran Inj) 4 mg IV.PUSH Q6H PRN PRN Reason: NAUSEA OR VOMITING Pantoprazole Sodium (Protonix) 40 mg PO DAILY [facility] Last Admin: 06/16/18 08:49 Dose: Not Given Senna/Docusate Sodium (Nikkie-Colace) 1 tab PO BID [facility] Last Admin: 06/16/18 08:49 Dose: Not Given Sennosides (Senokot) 17.2 mg PO Q12H PRN PRN Reason: Moderate Constipation Sodium Chloride (Ns Flush) 2 ml IV.FLUSH PRN PRN PRN Reason: FLUSH AFTER USING IV ACCESS Sodium Chloride (Ns Flush) 2 ml IV.FLUSH BID [facility] Last Admin: 06/16/18 08:50 Dose: 2 ml Sodium Chloride (Ns Flush) 2 ml IV.FLUSH PRN PRN PRN Reason: FLUSH AFTER USING IV ACCESS Tacrolimus (Prograf) 1 mg PO DAILY@0600 [facility] Last Admin: 06/16/18 06:18 Dose: Not Given Allergies Allergy/AdvReac Type Severity Reaction Status Date / Time iron dextran complex Allergy rash Verified 06/15/18 21:01 Home Medications Medication Instructions Recorded Confirmed Type amlodipine 10 mg PO DAILY 06/15/18 06/15/18 History atorvastatin 20 mg PO DAILY 06/15/18 06/15/18 History calcitriol 0.5 mcg PO DAILY 06/15/18 06/15/18 History cyanocobalamin (vitamin B-12) 1,000 mcg PO DAILY 06/15/18 06/15/18 History doxycycline hyclate 100 mg PO DAILY 06/15/18 06/15/18 History epoetin pedro [Procrit] 20,000 unit SUBCUT QMONTH 06/15/18 06/15/18 History ondansetron HCl [Zofran] 8 mg PO TID PRN 06/15/18 06/15/18 History oxycodone-acetaminophen 1 tab PO Q6H PRN 06/15/18 06/15/18 History pantoprazole [Protonix] 40 mg PO DAILY 06/15/18 06/15/18 History sirolimus 2 mg PO DAILY 06/15/18 06/15/18 History tacrolimus 1 mg PO QAM 06/15/18 06/15/18 History Physical Exam Vital signs: Vital Signs 06/15/18 20:18 06/15/18 20:21 06/15/18 22:35 Temperature 98.8 F Pulse Rate 92 H 89 Respiratory Rate 18 20 Blood Pressure 155/71 H 177/81 H Pulse Oximetry 99 99 97 06/16/18 00:01 06/16/18 02:55 06/16/18 02:59 Temperature 97.9 F Pulse Rate 91 H 93 H 90 Respiratory Rate 20 17 15 Blood Pressure 135/67 135/104 H 147/73 H Pulse Oximetry 99 98 94 L 06/16/18 03:40 06/16/18 04:00 06/16/18 04:15 Temperature 97.9 F Pulse Rate 93 H 89 Respiratory Rate 18 19 Blood Pressure 157/70 H 177/80 H Pulse Oximetry 96 95 97 06/16/18 04:30 06/16/18 04:45 06/16/18 04:47 Temperature Pulse Rate 88 90 88 Respiratory Rate 8 L 9 L 12 Blood Pressure 181/79 H 195/84 H 153/70 H Pulse Oximetry 94 L 94 L 94 L 06/16/18 05:00 06/16/18 05:15 06/16/18 05:30 Temperature Pulse Rate 89 87 85 Respiratory Rate 9 L 9 L 9 L Blood Pressure 177/93 H 167/72 H 156/70 H Pulse Oximetry 93 L 95 96 06/16/18 05:45 06/16/18 06:00 06/16/18 06:15 Temperature Pulse Rate 85 83 81 Respiratory Rate 9 L 10 L 10 L Blood Pressure 165/74 H 170/74 H 183/81 H Pulse Oximetry 97 97 97 06/16/18 06:43 06/16/18 06:44 06/16/18 06:45 Temperature Pulse Rate 89 99 H 90 Respiratory Rate 17 12 13 Blood Pressure 203/102 H 160/75 H 153/71 H Pulse Oximetry 92 L 98 97 06/16/18 07:00 06/16/18 07:15 06/16/18 07:30 Temperature Pulse Rate 95 H 91 H 84 Respiratory Rate 10 L 9 L 12 Blood Pressure 158/75 H 154/73 H 156/72 H Pulse Oximetry 99 99 96 06/16/18 07:47 06/16/18 08:00 06/16/18 08:30 Temperature 98.2 F Pulse Rate 81 86 Respiratory Rate 28 H 15 Blood Pressure 165/72 H 158/70 H Pulse Oximetry 97 93 L 92 L 06/16/18 09:00 06/16/18 09:30 06/16/18 10:00 Temperature Pulse Rate 110 H 90 105 H Respiratory Rate 17 11 L 13 Blood Pressure 168/74 H 146/66 H 159/72 H Pulse Oximetry 96 92 L 93 L 06/16/18 10:31 06/16/18 11:00 06/16/18 11:30 Temperature Pulse Rate 85 80 83 Respiratory Rate 11 L 14 11 L Blood Pressure 143/65 H 135/75 132/61 Pulse Oximetry 91 L 97 87 L 06/16/18 12:00 06/16/18 12:30 06/16/18 12:50 Temperature Pulse Rate 90 83 95 H Respiratory Rate 14 13 20 Blood Pressure 126/60 127/60 128/68 Pulse Oximetry 95 95 100 06/16/18 13:00 06/16/18 13:15 06/16/18 13:25 Temperature Pulse Rate 101 H 101 H 119 H Respiratory Rate 20 20 41 H Blood Pressure 137/70 173/79 H 186/93 H Pulse Oximetry 100 100 100 06/16/18 13:30 06/16/18 13:45 06/16/18 14:00 Temperature Pulse Rate 123 H 87 68 Respiratory Rate 52 H 20 20 Blood Pressure 187/98 H 118/58 L 112/59 L Pulse Oximetry 100 98 95 06/16/18 14:15 06/16/18 14:30 06/16/18 14:45 Temperature Pulse Rate 65 62 81 Respiratory Rate 20 20 27 H Blood Pressure 114/57 L 109/56 L 120/67 Pulse Oximetry 94 L 99 98 06/16/18 15:00 Temperature Pulse Rate 72 Respiratory Rate 20 Blood Pressure 126/68 Pulse Oximetry 100 Intake & Output 06/15/18 06/16/18 06/16/18 18:59 06:59 18:59 Intake Total 1000 / 1000 Output Total 500 / 500 Balance 500 / 500 Weight 74.4 kg Intake: IV 1000 / 1000 NS Inj 1,000 ML @ Wide Open IV. 1000 / 1000 SIG BOLUS ONE Rx#:[id number] Output: Hemodialysis Amount 500 / 500 Other: Date of Last Bowel Movement 06/14/18 06/14/18 Weight On Admission 74.4 kg - Constitutional mild distress, average body habitus, chronically ill appearing - Routine HEENT Exam Head: Present: normocephalic, atraumatic Eye: Present: EOMI, PERRL ENT: Present: mucous membranes moist, dentition normal, nares patent, external ear normal - Routine Neck Exam Present: supple - Routine Respiratory Exam Present: patient mechanically ventilated, CTA bilaterally - Routine Cardiovascular Exam Present: RRR, S1, S2 - Routine Abdominal Exam Present: soft (ileal conduit RLQ) - Routine Extremities Exam Present: pulses intact, normal capillary refill - Routine Skin Exam Present: intact - Routine Neurological Exam Present: normal tone (Patient intubated and sedated) - Detailed Neurological Exam: Coma Scale Eye Opening: None Verbal Response: None Motor Response: Localizing (Recently intubated and sedated) Bryant Coma Scale Total: 7 Assessment and Plan - Assessment and Plan Plan: Plan by systems: Neurologic: Metabolic encephalopathy Spina bifida, spinal cord stimulator in situ Uremic encephalopathy Neuro checks per ICU protocol Acetaminophen 650 mg every 6 hours as needed for pain Fentanyl and propofol infusions to maintain ventilator synchrony Daily sedation vacation Respiratory: Acute hypercapnic respiratory failure Mixed acidosis Maintain O2 sat greater than 92% ABG 7.0 8/74/90/21/-7 Initial chest x-ray diffuse edema pulmonary vascular congestion Stat chest x-ray post intubation-initially endotracheal tube at 24 cm retracted to 22 cm at the lip Duo nebs every 4 hours scheduled and every 2 hours as needed Cardiovascular: Hypertension Maintain map greater than 65 Continue patient's home antihypertensive medication medications Renal: Chronic kidney disease S/P left kidney transplant 1997 Acute on chronic renal failure History of bilateral nephrectomy Vascular cath placement 06/15-post IHD 2 L removed Nephrology followingDr. Mix Monitor BMP Avoid nephrotoxic drugs Obtain records from Tacrolimus level- 2, patient's home medications included tacrolimus 1 mg /d and sirolimus 2mg/d Ileal conduit-monitor output -- Strict I/Os FEN/GI: Protein calorie malnutrition Hyperlipidemia Place OGT Dietary recommendations Zofran for nausea Protonix GI prophylaxis Heme/ID: Monitor CBC Urine culture pending Endocrine: Glucose monitoring per ICU protocol -- SSI Prophylaxis: GI Prophylaxis Protonix DVT Prophylaxis -- SCDs [ ] Lines: Peripheral IVs x2. Vas-Cath placement 06/15 Dispo: My billing statement This patient remains critically ill with one or more organ systems which are or may become a threat to life. I have spent in excess of 44 minutes discontinuously in the care and management of this patient. This time is exclusive of procedures, and includes, but is not limited to, evaluation of the patient, review of the medical record, discussions with family, consultants, nursing staff, or respiratory therapy, and documentation in the medical record. Code Status: Full Discussed Condition With: Mrs. Dhaliwal, Dr. Mix, Dr. Gomez, and COAL CRUSHER OPERATOR at bedside
[2018-06-16] MEDS: Oral Hygiene Kit OROPHARYNG SCH (18:04)
--- NOTE | 2018-06-16 18:13 | MB ---
cc: Timo Mix MD DATE: 06/16/2018 REASON FOR CONSULTATION: Chronic kidney disease with acute worsening and history of renal transplant. HISTORY OF PRESENT ILLNESS: This is a 58-year-old male with a past medical history of hypertension, hyperlipidemia, history of spinal bifida, chronic kidney disease with end-stage renal disease and bilateral nephrectomy. He has been on hemodialysis for 10 years before he got a renal transplant from his mother in 1989. I was called to see the patient because of very high BUN and creatinine. The patient has been following with Dr. Nicole in [facility] and, according to the mother and the family, he has GFR around 25%. We do not have any labs for him, but he was found to have creatinine of 15.6. The patient had emergent dialysis done early this morning, and now he developed respiratory failure and is intubated. Most of the history was taken from the patient's chart and some from the patient's family. According to them, he has been sick for the last 7-10 days and he was diagnosed with gastroparesis and he was vomiting and not eating well. He has undergone endoscopy and he was diagnosed with gastroparesis. According to them, he has been taking his medications regularly and not missing any doses. PAST MEDICAL HISTORY: Hyperlipidemia, hypertension, end-stage renal disease, spina bifida, history of end-stage renal disease, post-renal transplant, chronic kidney disease. PAST SURGICAL HISTORY: History of ileal conduit surgery, bilateral nephrectomy, renal transplant surgery, spinal cord stimulator placement. REVIEW OF SYSTEMS: Cannot be taken since the patient is intubated. SOCIAL HISTORY: The patient has no history of smoking. He lives with his mother and family. There is no history of heavy alcoholism. FAMILY HISTORY: Negative for any renal disease. ALLERGIES: HE HAS AN ALLERGY TO IRON DEXTRAN. MEDICATIONS: Currently, he is on: 1. Tylenol p.r.n. 2. Milk of magnesia. 3. DuoNeb p.r.n. 4. Norvasc 10 mg once a day. 5. Lipitor 20 mg once a day. 6. Dulcolax 10 mg rectally. 7. Fentanyl 2500 mcg with infusion of 0.5 mL per hour. 8. Lactulose 30 mL daily. 9. Zofran p.r.n. 10. Protonix 40 mg daily. 11. Nikkie-Colace 1 tablet b.i.d. 12. Prograf 1 mg daily. PHYSICAL EXAMINATION: GENERAL: The patient is intubated and sedated. VITAL SIGNS: Blood pressure is 126/68. His blood pressure was slightly on the higher side, but he has no hypotensive documented episodes. His temperature is 98.2, pulse oximetry 98-100 on 40% FiO2. HEENT: Pupils are mid constricted. Nonicteric sclerae. Conjunctivae pale. NECK: Supple. JVD is slightly elevated. LUNGS: The patient has bilateral decreased air entry with scattered wheezing. HEART: S1, S2. Regular rate and rhythm. ABDOMEN: Distended, soft, lax. There is no tenderness. Bowel sounds positive. He has an abdomen ileal conduit with a small amount of urine. EXTREMITIES: There is no pedal edema. LABORATORY DATA: WBC count is 136, potassium 4.2, chloride 100, bicarbonate 23, BUN 79, creatinine 10.4, calcium 8.4, magnesium 2.7, AST is 13, ALT is 23, total protein 6.8 and albumin is 3.1. Urinalysis showing protein of 100, many WBC. His tacrolimus level was 2.2. Hepatitis serology is negative. Urine culture pending. IMAGING STUDIES: The patient had a chest x-ray done, which shows some vascular congestion and pulmonary edema. MRI of the brain was done, which shows no acute intracranial finding. CT scan of the abdomen and pelvis was done, which shows no acute changes. Left lower quadrant transplant kidney with no evidence of hydronephrosis. ASSESSMENT AND PLAN: 1. Chronic kidney disease, acute worsening. 2. History of renal transplant. 3. Respiratory failure. 4. Urinary tract infection. 5. Rule out sepsis. 6. Hypertension. The patient has chronic kidney disease and developed acute kidney injury. He has a history of gastroparesis and may have an element of prerenal acute tubular necrosis but at present, he is in fluid overload status and he was dialyzed early in the morning, and 500 mL was removed at that time, but he needs more fluid removal now, so I already called the dialysis. He will be dialyzed again today in the evening. We will try to get his previous labs to see how the renal function was before. His Prograf level is low, so I will increase it to make it 1 mg twice a day. Thank you for the consultation. I will follow the patient while he is in the hospital. MD CURT Ortega/wilver , 04:15 PM , 04:28 PM
[2018-06-16] MEDS ORDERED: Gelatin 12 MM/7 MM Topical Foam TOPICAL PRN ×2 (19:42→19:47)
--- NOTE | 2018-06-16 20:24 | ECG ---
Date Performed: 06/15/2018 Time Performed: 20:30:06 PTAGE: 58 years EKG: Sinus rhythm POSSIBLE LEFT VENTRICULAR HYPERTROPHY NONSPECIFIC T-WAVE ABNORMALITY ABNORMAL ECG NO PREVIOUS TRACING DOCTOR: Yuri Ellis Interpretating Date/Time 06/16/2018 20:23:21
[2018-06-16] MEDS ORDERED: Heparin 10,000 UNITS/10 ML Vial (for IV use) OTHER PRN ×2 (20:33)
[2018-06-16] MEDS ORDERED: Sod Chloride 0.9% Inj 1,000 ML IV.CONT PRN (20:33)
[2018-06-16] MEDS ORDERED: Albumin Human 25% Inj 100 ML IV.SIG PRN (20:33)
[2018-06-16] MEDS ORDERED: Sod Chloride 0.9% Inj 1,000 ML OTHER PRN ×2 (20:33)
[2018-06-16] MEDS: Chlorhexidine 0.12% Oral Kit 15 ML UDC OROPHARYNG SCH (21:14)
[2018-06-16] MEDS: Heparin - SQ 10,000 UNITS/ML Vial SQ SCH (21:14)
[2018-06-16] MEDS ORDERED: Midazolam 100 MG/100 ML Inj 100 MG/100 ML BAG IV.CONT PRN (22:08)
[2018-06-17] MEDS: Oral Hygiene Kit OROPHARYNG SCH ×5 (00:33→23:41)
[2018-06-17] MEDS: Propofol 1000 mg/100 ml Inj 1,000 MG/100 ML BOTTLE IV.CONT PRN ×2 (00:33→06:01)
[2018-06-17 04:25] LABS: ABG Base Excess -0.1 mmol/L (-2-2); ABG PCO2 24 mmHg (38-42); ABG PO2 140 mmHG (61-120)
--- NOTE | 2018-06-17 04:56 | XR ---
EXAM DATE: 06/17/2018 4:39 AM EST AGE/SEX: 58 years / Male INDICATIONS: Shortness of breath, possible pulmonary disease. CLINICAL DATA: This is the patient's subsequent encounter. Patient reports that signs and symptoms h ave been present for 3 days and indicates a pain score of Nonresponsive. MEDICAL/SURGICAL HISTORY: Hypertension. Gastroparesis. Hyperlipidemia. Spina bifida. . Simu lator. COMPARISON: . FINDINGS: Endotracheal tube is present with tip several centimeters above the mariela. Nasogastric tube descends in the stomach. Left neck dialysis catheter is stable in position. Spinal stimulator is noted. There is mild central interstitial prominence and slight hazy basilar parenchymal opacity. CONCLUSION: Slight interval worsening in aeration. Electronically signed by: Curt Schmidt MD Board Certified Radiologist 06/17/2018 4:55 AM EST
[2018-06-17] MEDS: Chlorhexidine Gluconate 2% 1 Pack (2 Cloths) TOPICAL SCH (05:22)
[2018-06-17 05:55] LABS: Baso % (Auto) 0.5 % (0.0-2.0); Eos % (Auto) 0.5 % (0.0-4.0); Hematocrit 23.1 % (39.0-51.0); Hemoglobin 7.9 gm/dL (13.0-17.0); Lymph # (Auto) 1.1 th/mm3 (1.0-4.8); Lymph % (Auto) 17.5 % (9.0-44.0); Mean Corpuscular HGB Conc 34.1 % (32.0-36.0); Mean Corpuscular Volume 79.3 fL (80.0-100.0); Mono # (Auto) 0.8 th/mm3 (0.0-0.9); Mono % (Auto) 12.2 % (0.0-8.0); Neut # (Auto) 4.3 th/mm3 (1.8-7.7); Neut % (Auto) 69.3 % (16.0-70.0); Platelet Count 237 th/mm3 (150-450); Red Blood Count 2.92 mil/mm3 (4.50-5.90); Red Cell Distribution Width 16.4 % (11.6-17.2); White Blood Count 6.3 th/mm3 (4.0-11.0)
[2018-06-17 06:25] LABS: Magnesium 2.2 mg/dL (1.5-2.5)
[2018-06-17 06:31] LABS: Albumin 2.7 g/dL (3.4-5.0); Chol/HDL Ratio 2.29 Ratio; HDL Cholesterol 43.1 mg/dL (40.0-60.0); Phosphorus 5.5 mg/dL (2.5-4.9); Total Protein 6.3 g/dL (6.4-8.2)
[2018-06-17 06:46] LABS: Hepatitits B Surface Antigen Nonreactive (Nonreactive)
[2018-06-17 07:01] LABS: Hepatitis A IgM Antibody Nonreactive (Nonreactive)
[2018-06-17] MEDS: Senna/Docusate Sodium 8.6/50 MG Tablet PO SCH ×2 (08:00→21:27)
[2018-06-17] MEDS: Chlorhexidine 0.12% Oral Kit 15 ML UDC OROPHARYNG SCH ×2 (08:01→21:26)
[2018-06-17] MEDS: amLODIPine 10 MG Tablet PO SCH (08:01)
[2018-06-17] MEDS: Heparin - SQ 10,000 UNITS/ML Vial SQ SCH ×2 (08:01→21:26)
--- NOTE | 2018-06-17 08:58 | P.PNNP ---
Subjective Interval history: Patient remain intubated and sedated, has some urine out put. Physical Exam Vital signs: Vital Signs 06/16/18 09:00 06/16/18 09:30 06/16/18 10:00 Temperature Pulse Rate 110 H 90 105 H Respiratory Rate 17 11 L 13 Blood Pressure 168/74 H 146/66 H 159/72 H Pulse Oximetry 96 92 L 93 L 06/16/18 10:31 06/16/18 11:00 06/16/18 11:30 Temperature Pulse Rate 85 80 83 Respiratory Rate 11 L 14 11 L Blood Pressure 143/65 H 135/75 132/61 Pulse Oximetry 91 L 97 87 L 06/16/18 12:00 06/16/18 12:30 06/16/18 12:50 Temperature Pulse Rate 90 83 95 H Respiratory Rate 14 13 20 Blood Pressure 126/60 127/60 128/68 Pulse Oximetry 95 95 100 06/16/18 13:00 06/16/18 13:15 06/16/18 13:25 Temperature Pulse Rate 101 H 101 H 119 H Respiratory Rate 20 20 41 H Blood Pressure 137/70 173/79 H 186/93 H Pulse Oximetry 100 100 100 06/16/18 13:30 06/16/18 13:45 06/16/18 14:00 Temperature Pulse Rate 123 H 87 68 Respiratory Rate 52 H 20 20 Blood Pressure 187/98 H 118/58 L 112/59 L Pulse Oximetry 100 98 95 06/16/18 14:15 06/16/18 14:30 06/16/18 14:45 Temperature Pulse Rate 65 62 81 Respiratory Rate 20 20 27 H Blood Pressure 114/57 L 109/56 L 120/67 Pulse Oximetry 94 L 99 98 06/16/18 15:00 06/16/18 15:15 06/16/18 15:30 Temperature Pulse Rate 72 66 64 Respiratory Rate 20 20 20 Blood Pressure 126/68 117/64 119/64 Pulse Oximetry 100 100 100 06/16/18 15:45 06/16/18 16:00 06/16/18 16:01 Temperature 97.8 F Pulse Rate 63 64 Respiratory Rate 20 20 20 Blood Pressure 118/65 116/64 Pulse Oximetry 100 100 100 06/16/18 16:15 06/16/18 16:30 06/16/18 16:45 Temperature Pulse Rate 68 73 71 Respiratory Rate 20 20 20 Blood Pressure 113/63 107/60 111/62 Pulse Oximetry 100 100 100 06/16/18 17:00 06/16/18 17:15 06/16/18 17:30 Temperature Pulse Rate 72 72 69 Respiratory Rate 20 20 20 Blood Pressure 115/65 111/61 111/58 L Pulse Oximetry 100 100 100 06/16/18 17:45 06/16/18 18:00 06/16/18 18:15 Temperature Pulse Rate 69 68 68 Respiratory Rate 20 20 20 Blood Pressure 112/61 115/63 116/64 Pulse Oximetry 100 100 100 06/16/18 18:30 06/16/18 18:45 06/16/18 19:00 Temperature 98.8 F Pulse Rate 69 68 68 Respiratory Rate 20 20 20 Blood Pressure 118/65 120/68 122/69 Pulse Oximetry 100 100 100 06/16/18 20:00 06/16/18 21:00 06/16/18 21:47 Temperature 98.8 F 98.8 F Pulse Rate 71 69 Respiratory Rate 20 20 23 Blood Pressure 147/75 H 138/71 Pulse Oximetry 100 100 100 06/16/18 21:50 06/16/18 22:00 06/16/18 23:00 Temperature 98.8 F 98.8 F Pulse Rate 97 H 77 77 Respiratory Rate 22 20 20 Blood Pressure 177/87 H 116/59 L Pulse Oximetry 100 100 06/17/18 00:00 06/17/18 00:56 06/17/18 01:00 Temperature 98.7 F 98.7 F Pulse Rate 67 67 70 Respiratory Rate 20 20 20 Blood Pressure 125/61 120/59 L Pulse Oximetry 100 100 100 06/17/18 02:00 06/17/18 03:00 06/17/18 04:00 Temperature 98.7 F 98.7 F 98.7 F Pulse Rate 75 72 69 Respiratory Rate 20 20 20 Blood Pressure 120/61 121/60 125/65 Pulse Oximetry 100 100 100 06/17/18 04:58 06/17/18 05:00 06/17/18 06:00 Temperature 98.3 F 98.3 F Pulse Rate 67 71 74 Respiratory Rate 20 20 20 Blood Pressure 115/59 L 111/59 L Pulse Oximetry 100 100 100 06/17/18 08:42 Temperature Pulse Rate 71 Respiratory Rate 20 Blood Pressure Pulse Oximetry 100 Intake & Output 06/16/18 06/17/18 06/17/18 18:59 06:59 18:59 Intake Total 300 / 300 Output Total 400 / 400 1450 / 1450 Balance -400 / -400 -1150 / -1150 Weight 74.4 kg Intake: IV 300 / 300 Diprivan 1000 mg/100 ml Inj 1, 300 / 300 000 mg In 100 ml @ 5 MCG/KG/MIN 2.232 mls/hr IV.CONT TITRATE PRN Rx#:[id number] Output: Hemodialysis Amount 1000 / 1000 Urine Amount (Stoma) 400 / 400 450 / 450 Nephrostomy Tube Right 400 / 400 450 / 450 Other: Date of Last Bowel Movement 06/14/18 06/14/18 # Bowel Movements 0 0 Narrative: Narrative: Remain intubated and sedated. Head: Normocephalic. Atraumatic. EENT: Pupils equal round and reactive to light. Nose without drainage. Airway intact. Throat without injection. Cardiovascular: Regular rate and rhythm. No murmurs, rubs or gallops. Respiratory: Lungs clear to auscultation bilaterally. No wheezes or rhonchi. Abdomen: Soft, nontender, distended. Musculoskeletal: No gross deformities. No edema. Skin: No obvious rashes or erythema. Neuro: Intubated and sedated. Assessment and Plan - Assessment (1) Chronic kidney disease (CKD) Code(s): N18.9 - Chronic kidney disease, unspecified Status: Acute (2) History of renal transplant Code(s): Z94.0 - Kidney transplant status Status: Acute (3) Respiratory failure Code(s): J96.90 - Respiratory failure, unspecified, unspecified whether with hypoxia or hypercapnia Status: Acute (4) Acute renal failure Code(s): N17.9 - Acute kidney failure, unspecified Status: Acute Qualifiers: Acute renal failure type: unspecified Qualified Code(s): N17.9 - Acute kidney failure, unspecified (5) Vomiting Code(s): R11.10 - Vomiting, unspecified Status: Acute Qualifiers: Vomiting type: unspecified Vomiting Intractability: non-intractable Nausea presence: with nausea Qualified Code(s): R11.2 - Nausea with vomiting, unspecified - Plan Patient with history of chronic kidney disease with Renal Transplant done in 1989. He has been following with Dr. Nicole, Now admitted with Acute kidney injury. Has very high BUN and Creatinine. Also develop Resp. failure and intubated. Non oliguric. BP is stable. HD was done last night. Follow the BMP and HD possibly tomorrow. Continue antibiotics. Follow the culture. D/W the patient's .
[2018-06-17] MEDS ORDERED: Dexmedetomidine Inj 200 MCG in Sodium Chlor 0.9% Inj 48 ML IV.CONT PRN (09:49)
--- NOTE | 2018-06-17 09:49 | P.PNCC ---
Subjective Subjective Remarks/Hospital Course: 06/17: No acute changes overnight patient remains intubated and sedated. Patient underwent repeat hemodialysis yesterday afternoon, approximately 1 liter removed. Total output from ileal conduit 850 cc in the last 24hrs. Records obtained from 's office. Tacrolimus level noted subtherapeutic February 2018 2.4 at that time and on admission 2.2. Tacrolimus continued. As 02/18 sirolimus level within normal limits. Sirolimus continued and added to medication regimen. Objective Vital Signs / I&O: Vital Signs 06/16/18 10:00 06/16/18 10:31 06/16/18 11:00 Temperature Pulse Rate 105 H 85 80 Respiratory Rate 13 11 L 14 Blood Pressure 159/72 H 143/65 H 135/75 Pulse Oximetry 93 L 91 L 97 06/16/18 11:30 06/16/18 12:00 06/16/18 12:30 Temperature Pulse Rate 83 90 83 Respiratory Rate 11 L 14 13 Blood Pressure 132/61 126/60 127/60 Pulse Oximetry 87 L 95 95 06/16/18 12:50 06/16/18 13:00 06/16/18 13:15 Temperature Pulse Rate 95 H 101 H 101 H Respiratory Rate 20 20 20 Blood Pressure 128/68 137/70 173/79 H Pulse Oximetry 100 100 100 06/16/18 13:25 06/16/18 13:30 06/16/18 13:45 Temperature Pulse Rate 119 H 123 H 87 Respiratory Rate 41 H 52 H 20 Blood Pressure 186/93 H 187/98 H 118/58 L Pulse Oximetry 100 100 98 06/16/18 14:00 06/16/18 14:15 06/16/18 14:30 Temperature Pulse Rate 68 65 62 Respiratory Rate 20 20 20 Blood Pressure 112/59 L 114/57 L 109/56 L Pulse Oximetry 95 94 L 99 06/16/18 14:45 06/16/18 15:00 06/16/18 15:15 Temperature Pulse Rate 81 72 66 Respiratory Rate 27 H 20 20 Blood Pressure 120/67 126/68 117/64 Pulse Oximetry 98 100 100 06/16/18 15:30 06/16/18 15:45 06/16/18 16:00 Temperature 97.8 F Pulse Rate 64 63 64 Respiratory Rate 20 20 20 Blood Pressure 119/64 118/65 116/64 Pulse Oximetry 100 100 100 06/16/18 16:01 06/16/18 16:15 06/16/18 16:30 Temperature Pulse Rate 68 73 Respiratory Rate 20 20 20 Blood Pressure 113/63 107/60 Pulse Oximetry 100 100 100 06/16/18 16:45 06/16/18 17:00 06/16/18 17:15 Temperature Pulse Rate 71 72 72 Respiratory Rate 20 20 20 Blood Pressure 111/62 115/65 111/61 Pulse Oximetry 100 100 100 06/16/18 17:30 06/16/18 17:45 06/16/18 18:00 Temperature Pulse Rate 69 69 68 Respiratory Rate 20 20 20 Blood Pressure 111/58 L 112/61 115/63 Pulse Oximetry 100 100 100 06/16/18 18:15 06/16/18 18:30 06/16/18 18:45 Temperature Pulse Rate 68 69 68 Respiratory Rate 20 20 20 Blood Pressure 116/64 118/65 120/68 Pulse Oximetry 100 100 100 06/16/18 19:00 06/16/18 20:00 06/16/18 21:00 Temperature 98.8 F 98.8 F 98.8 F Pulse Rate 68 71 69 Respiratory Rate 20 20 20 Blood Pressure 122/69 147/75 H 138/71 Pulse Oximetry 100 100 100 06/16/18 21:47 06/16/18 21:50 06/16/18 22:00 Temperature 98.8 F Pulse Rate 97 H 77 Respiratory Rate 23 22 20 Blood Pressure 177/87 H Pulse Oximetry 100 100 06/16/18 23:00 06/17/18 00:00 06/17/18 00:56 Temperature 98.8 F 98.7 F Pulse Rate 77 67 67 Respiratory Rate 20 20 20 Blood Pressure 116/59 L 125/61 Pulse Oximetry 100 100 100 06/17/18 01:00 06/17/18 02:00 06/17/18 03:00 Temperature 98.7 F 98.7 F 98.7 F Pulse Rate 70 75 72 Respiratory Rate 20 20 20 Blood Pressure 120/59 L 120/61 121/60 Pulse Oximetry 100 100 100 06/17/18 04:00 06/17/18 04:58 06/17/18 05:00 Temperature 98.7 F 98.3 F Pulse Rate 69 67 71 Respiratory Rate 20 20 20 Blood Pressure 125/65 115/59 L Pulse Oximetry 100 100 100 06/17/18 06:00 06/17/18 08:42 Temperature 98.3 F Pulse Rate 74 71 Respiratory Rate 20 20 Blood Pressure 111/59 L Pulse Oximetry 100 100 Intake & Output 06/16/18 06/17/18 06/17/18 18:59 06:59 18:59 Intake Total 300 / 300 Output Total 400 / 400 1450 / 1450 Balance -400 / -400 -1150 / -1150 Weight 74.4 kg Intake: IV 300 / 300 Diprivan 1000 mg/100 ml Inj 1, 300 / 300 000 mg In 100 ml @ 5 MCG/KG/MIN 2.232 mls/hr IV.CONT TITRATE PRN Rx#:[id number] Output: Hemodialysis Amount 1000 / 1000 Urine Amount (Stoma) 400 / 400 450 / 450 Nephrostomy Tube Right 400 / 400 450 / 450 Other: Date of Last Bowel Movement 06/14/18 06/14/18 # Bowel Movements 0 0 Result Diagrams: 06/17/18 04:05 06/16/18 11:12 Other Results: Laboratory Results WBC 6.3 th/mm3 (4.0-11.0) 06/17/18 04:05 RBC 2.92 mil/mm3 (4.50-5.90) L 06/17/18 04:05 Hgb 7.9 gm/dL (13.0-17.0) L 06/17/18 04:05 Hct 23.1 % (39.0-51.0) L 06/17/18 04:05 MCV 79.3 fL (80.0-100.0) L 06/17/18 04:05 MCH 27.0 pg (27.0-34.0) 06/17/18 04:05 MCHC 34.1 % (32.0-36.0) 06/17/18 04:05 RDW 16.4 % (11.6-17.2) 06/17/18 04:05 Plt Count 237 th/mm3 (150-450) 06/17/18 04:05 MPV 8.0 fL (7.0-11.0) 06/17/18 04:05 Prelim Diff (Auto) Slide review pending 06/16/18 01:00 Neut % (Auto) 69.3 % (16.0-70.0) 06/17/18 04:05 Lymph % (Auto) 17.5 % (9.0-44.0) 06/17/18 04:05 [place] % (Auto) 12.2 % (0.0-8.0) H 06/17/18 04:05 Eos % (Auto) 0.5 % (0.0-4.0) 06/17/18 04:05 Baso % (Auto) 0.5 % (0.0-2.0) 06/17/18 04:05 Neut # (Auto) 4.3 th/mm3 (1.8-7.7) 06/17/18 04:05 Lymph # (Auto) 1.1 th/mm3 (1.0-4.8) 06/17/18 04:05 [place] # (Auto) 0.8 th/mm3 (0.0-0.9) 06/17/18 04:05 Eos # (Auto) 0.0 th/mm3 (0.0-0.4) 06/17/18 04:05 Baso # (Auto) 0.0 th/mm3 (0.0-0.2) 06/17/18 04:05 WBC Differential . 06/17/18 04:05 Diff Scan Auto diff confirmed 06/16/18 01:00 Seg Neuts % (Manual) 78 % (16-70) H 06/15/18 21:16 Band Neuts % (Manual) 1 % (0-6) 06/15/18 21:16 Lymphocytes % (Manual) 15 % (9-44) 06/15/18 21:16 Monocytes % (Manual) 5 % (0-8) 06/15/18 21:16 Eosinophils % (Manual) 1 % (0-4) 06/15/18 21:16 Abs Neuts (Manual) 5.8 th/mm3 (1.8-7.7) 06/15/18 21:16 Differential Comment Auto diff final 06/17/18 04:05 Toxic Granulation 2+ (None) H 06/15/18 21:16 Toxic Vacuolation Present (None) H 06/16/18 01:00 Platelet Estimate Normal (Normal) 06/16/18 01:00 Platelet Morphology Normal (Normal) 06/16/18 01:00 Ovalocytes 1+ (None) H 06/16/18 01:00 Acanthocytes (Spur) Occ (None) H 06/16/18 01:00 Keratocytes Occ (None) H 06/16/18 01:00 PT 10.9 sec (9.8-11.6) 06/15/18 21:16 INR 1.1 Ratio 06/15/18 21:16 APTT 31.7 sec (23.4-31.7) 06/15/18 21:16 Puncture Site Right brachial 06/17/18 04:12 Patient Temperature 98.6 06/17/18 04:12 O2 Saturation 96 % (90-100) 06/17/18 04:12 ABG pH 7.57 (7.380-7.420) H* 06/17/18 04:12 ABG pCO2 24 mmHg (38-42) L* 06/17/18 04:12 ABG pO2 140 mmHG (61-120) H 06/17/18 04:12 ABG HCO3 22 mmol/L (22-26) 06/17/18 04:12 ABG O2 Content 10.8 Vol % (12.0-20.0) L 06/17/18 04:12 ABG Base Excess -0.1 mmol/L (-2-2) 06/17/18 04:12 ABG Methemoglobin 1.9 % (0-2) 06/17/18 04:12 Delvis Test Present 06/17/18 04:12 Hemoglobin 7.8 G/DL (12.0-16.0) L* 06/17/18 04:12 Carboxyhemoglobin 0.9 % (0-4) 06/17/18 04:12 O2 Delivery Device Ventilator 06/17/18 04:12 Liter Flow 4.00 L/M 06/16/18 12:27 Vent Setting Prvc/ac 20 vt 550 06/17/18 04:12 Inspired O2 40 % 06/17/18 04:12 Critical Value Yes 06/17/18 04:12 Sodium 136 meq/L (136-145) 06/16/18 11:12 Potassium 4.2 meq/L (3.5-5.1) D 06/16/18 11:12 Chloride 100 meq/L (98-107) 06/16/18 11:12 Carbon Dioxide 23.0 meq/L (21.0-32.0) 06/16/18 11:12 Anion Gap 13 meq/L (5-15) 06/16/18 11:12 BUN 79 mg/dL (7-18) H 06/16/18 11:12 Creatinine 10.43 mg/dL (0.60-1.30) H* D 06/16/18 11:12 Estimated GFR 5 mL/min (>89) L 06/16/18 11:12 POC Glucose 113 mg/dl (68-110) H 06/15/18 21:25 Random Glucose 122 mg/dL (74-106) H 06/16/18 11:12 Lactic Acid 0.4 mmol/L (0.4-2.0) 06/16/18 01:00 Calcium 8.4 mg/dL (8.5-10.1) L 06/16/18 11:12 Phosphorus 5.5 mg/dL (2.5-4.9) H 06/17/18 04:05 Magnesium 2.2 mg/dL (1.5-2.5) 06/17/18 04:05 Total Bilirubin 0.3 mg/dL (0.2-1.0) 06/17/18 04:05 Direct Bilirubin 0.1 mg/dL (0.0-0.2) 06/17/18 04:05 Indirect Bilirubin 0.2 mg/dL (0.0-0.8) 06/17/18 04:05 AST 14 U/L (15-37) L 06/17/18 04:05 ALT 20 U/L (12-78) 06/17/18 04:05 Alkaline Phosphatase 133 U/L (45-117) H 06/17/18 04:05 Ammonia 22 mcmol/L (11-32) 06/15/18 21:16 Total Creatine Kinase 151 U/L (39-308) 06/15/18 21:16 CK-MB (CK-2) 3.9 ng/mL (0.5-3.6) H 06/15/18 21:16 Troponin I Less than 0.02 ng/mL (0.02-0.05) L 06/15/18 21:16 B-Natriuretic Peptide 245 pg/mL (0-100) H 06/15/18 21:16 Total Protein 6.3 g/dL (6.4-8.2) L 06/17/18 04:05 Albumin 2.7 g/dL (3.4-5.0) L 06/17/18 04:05 Triglycerides 204 mg/dL (42-150) H 06/17/18 04:05 Cholesterol 99 mg/dL (120-200) L 06/17/18 04:05 LDL Cholesterol, Calc 15 mg/dL (0-99) 06/17/18 04:05 HDL Cholesterol 43.1 mg/dL (40.0-60.0) 06/17/18 04:05 Cholesterol/HDL Ratio 2.29 Ratio 06/17/18 04:05 Lipase 134 U/L (73-393) 06/15/18 21:16 Urine Color Yellow (Yellw/Straw) 06/16/18 00:00 Urine Clarity Cloudy (Clear) H 06/16/18 00:00 Urine pH 5.0 (5.0-8.5) 06/16/18 00:00 Ur Specific [place] 1.009 (1.002-1.035) 06/16/18 00:00 Urine Protein 100 mg/dL (Neg-Trace) H 06/16/18 00:00 Urine Glucose (UA) Negative mg/dL (Negative) 06/16/18 00:00 Urine Ketones Negative mg/dL (Negative) 06/16/18 00:00 Urine Occult Blood Moderate (Negative) H 06/16/18 00:00 Urine Nitrate Negative (Negative) 06/16/18 00:00 Urine Bilirubin Negative (Negative) 06/16/18 00:00 Urine Urobilinogen Less than 2 mg/dL (Less than 2) 06/16/18 00:00 Ur Leukocyte Esterase Large (Negative) H 06/16/18 00:00 Urine RBC 3 /hpf (0-3) 06/16/18 00:00 Urine WBC 145 /hpf (0-5) H 06/16/18 00:00 Urine WBC Clumps Many (None) H 06/16/18 00:00 Amorphous Sediment Rare /hpf (None) H 06/16/18 00:00 Urine Bacteria Many /hpf (None) H 06/16/18 00:00 Urine Mucus Few /lpf (Occasional) H 06/16/18 00:00 Micro UA Comment Culture indicated 06/16/18 00:00 Ur Microscopic Review Not Reportable 06/16/18 00:00 Urine Culture Comments Culture indicated 06/16/18 00:00 Nasal Screen MRSA (PCR) Not detected (Negative) 06/16/18 02:55 Salicylates 2.9 mg/dL (2.8-20.0) 06/15/18 21:16 Acetaminophen Less than 2.0 mcg/mL (10.0-30.0) L 06/15/18 21:16 Tacrolimus 2.2 ng/mL (5.0-20.0) L 06/16/18 01:00 Hepatitis A IgM Ab Nonreactive (Nonreactive) 06/17/18 04:05 Hep Bs Antigen Nonreactive (Nonreactive) 06/17/18 04:05 Hep B Core IgM Ab Nonreactive (Nonreactive) 06/17/18 04:05 Hep C IgG Ab Nonreactive (Nonreactive) 06/17/18 04:05 Impressions Abdomen/Pelvis CT 06/15/18 21:01 CONCLUSION: Nonspecific CT appearance of the abdomen and pelvis with no definite acute findings. Head CT 06/15/18 21:22 CONCLUSION: Motion degraded exam grossly negative for acute intracranial process. . Head MRI 06/16/18 00:00 CONCLUSION: No acute intracranial findings Chest X-Ray 06/17/18 04:00 CONCLUSION: Slight interval worsening in aeration. Objective Remarks: GENERAL: This is a well-developed well-nourished male, GCS 11 T of sedation currently, undergoing CPAP trials SKIN: Warm and dry. HEAD: Atraumatic. Normocephalic. EYES: Pupils equal and round. No scleral icterus. No injection or drainage. ENT: No nasal bleeding or discharge. Mucous membranes pink and moist. NECK: Trachea midline. No JVD. CARDIOVASCULAR: Normal rate, regular rhythm. RESPIRATORY: No accessory muscle use. Clear to auscultation. Breath sounds equal bilaterally. GASTROINTESTINAL: Abdomen soft, non-tender, nondistended. No guarding. Ileal conduit right lower quadrant noted MUSCULOSKELETAL: Extremities without clubbing, cyanosis, or edema. No obvious deformities. NEUROLOGICAL: GCS 11 T awake and alert. RASS 0. No gross focal/sensory deficits. Follows commands in all 4 extremities. Assessment and Plan - Assessment and Plan Plan: Plan by systems: Neurologic: Metabolic encephalopathy Spina bifida, spinal cord stimulator in situ Uremic encephalopathy Neuro checks per ICU protocol Acetaminophen 650 mg every 6 hours as needed for pain Fentanyl and propofol infusions to maintain ventilator synchrony Daily sedation vacation-discontinue Versed, whole propofol and fentanyl infusions current If needed for SBT trials and CPAP trials consider Precedex infusion at low dose Respiratory: Acute hypercapnic respiratory failure Mixed acidosis Maintain O2 sat greater than 92% ABG 7.0 8//90/21/-7 06/17-chest x-ray worsening aeration ABGs much improved-7.5 7/24/140/24/-0.1 Duo nebs every 4 hours scheduled and every 2 hours as needed Begin CPAP trials Cardiovascular: Hypertension Maintain map greater than 65 Continue patient's home antihypertensive medications Renal: Chronic kidney disease S/P left kidney transplant 1997 Acute on chronic renal failure History of bilateral nephrectomy Vascular cath placement 06/15-post IHD 2 L removed Nephrology followingDr. Mix Monitor BMP Avoid nephrotoxic drugs Obtained records from -creatinine 3.4 on 05/22 Tacrolimus level- 2, continue home medications included tacrolimus 1 mg /d and sirolimus 2mg/d Ileal conduit-monitor output-850 /24 hours -- Strict I/Os FEN/GI: Protein calorie malnutrition Hyperlipidemia Maintain n.p.o. status for now for possible extubation Dietary recommendations Zofran for nausea Protonix GI prophylaxis Heme/ID: Monitor CBC Urine culture pending Blood cultures obtained x2- F/U results Sputum culture pending Continue empiric antibiotics- cefepime , and Linezolid (day 1) Endocrine: Glucose monitoring per ICU protocol -- SSI Prophylaxis: GI Prophylaxis Protonix DVT Prophylaxis -- SCDs Heparin subcu every 12-hour Lines: Peripheral IVs x2. Vas-Cath placement 06/15 Dispo: My billing statement This patient remains critically ill with one or more organ systems which are or may become a threat to life. I have spent in excess of 35 minutes discontinuously in the care and management of this patient. This time is exclusive of procedures, and includes, but is not limited to, evaluation of the patient, review of the medical record, discussions with family, consultants, nursing staff, or respiratory therapy, and documentation in the medical record. Code Status: Full Discussed Condition With: Discussed condition with at bedside and TRADER at bedside
[2018-06-17 10:18] LABS: Calcium 8.8 mg/dL (8.5-10.1); Carbon Dioxide 23.1 meq/L (21.0-32.0); Potassium 3.6 meq/L (3.5-5.1)
--- NOTE | 2018-06-17 10:24 | P.DIET ---
Nutritional Evaluation Type of nutrition evaluation: initial Nutrition consult regarding: Tube Feeding Nutrition screening: [facility] [place] (TF'ing) Screening comments: 06/16/18 [facility] [place] for TF'ing Objective - Diagnosis acute renal failure - Objective Body Mass Index: 24.9 % IBW: 106 (IBW = 154lb) Body Weight Used for Calculations: Actual (74.4kg) Energy Needs - Lower Range (kCal/kg): 25 Energy Needs - Upper Range (kCal/kg): 30 Lower Limit kCal/kg (kCals): 1,860 Upper Limit kCal/kg (kCals): 2,232 Lower Limit Protein Factor (Grams per Kg): 1.2 Upper Limit Protein Factor (Grams per Kg): 1.4 Lower Protein Needs (Protein): 89 Upper Protein Needs (Protein): 104 Dietitian Reviewed in Medical Record: Curent medications, Intake & Output, Labs , Medical history Diet Order: NPO Objective Comments: PMH: CKD, gastroparesis, HLD, HTN, spina bifida, s/p kidney transplant (1997) Meds: lipitor, propofol Labs: BUN 79, Cr 10.43, estGFR 5, random glucose 122, TG 204, Chol 99 LBM 06/14/18 Assessment Assessment: Pt currently at nutritional risk r/t need for TF'ing as nutritional support. Pt intubated, sedated w/ propofol, and on [facility] vent. [facility] [place] for tube feeding received and acknowledged. Pt on HD and scheduled to be dialyzed today. RD to recommend Nepro 1.8 @ 50mL/hr to provide 2160kcal, 97g of protein, 872mL of free water to best meet pts nutritional needs. Advance TF as tolerated. Propofol provides additional kcal (1.1kcal/mL) while running. Continue to monitor pts TF tolerance. Labs reviewed, dietitian following. Recommendations: 1. RD to recommend Nepro 1.8 @ 50mL/hr to best meet pts nutritional needs, advance TF as tolerated 2. Propofol provides additional kcal (1.1kcal/mL) while running 3. Continue to monitor pts TF tolerance 4. Dietitian following Dietitian to Monitor: Lab values, Renal labs, Glucose level, Intake & Output, Tube feeding tolerance, Weight change, Medical course
[2018-06-17] MEDS ORDERED: SIROLIMUS 2 MG PO ONE (11:00)
[2018-06-17 13:48] LABS: ABG Base Excess -0.7 mmol/L (-2-2); ABG PCO2 33 mmHg (38-42); ABG PO2 108 mmHg (61-120)
[2018-06-17] MEDS: Azithromycin Inj 500 MG in Sodium Chlor 0.9% Inj 250 ML IV.SIG SCH (14:32)
[2018-06-18] MEDS: Chlorhexidine Gluconate 2% 1 Pack (2 Cloths) TOPICAL SCH (05:34)
[2018-06-18] MEDS: SIROLIMUS 2 MG PO SCH (05:34)
[2018-06-18] MEDS: Oral Hygiene Kit OROPHARYNG SCH ×3 (05:34→16:32)
--- NOTE | 2018-06-18 06:25 | XR ---
EXAM DATE: 06/18/2018 6:22 AM EST AGE/SEX: 58 years / Male INDICATIONS: Shortness of breath. CLINICAL DATA: This is the patient's subsequent encounter. Patient reports that signs and symptoms h ave been present for 4 - 6 days and indicates a pain score of 0/10. MEDICAL/SURGICAL HISTORY: . Hypertension. Gastroparesis. Hyperlipidemia. Spina bifida. . Spina l stimulator. COMPARISON: [facility], CHEST 1V SINGLE AP, 06/17/2018. . FINDINGS: Left neck dialysis catheter is stable with tip overlying SVC. Thoracic spinal stimulator apparatus ag ain noted. Mild symmetric interstitial prominence bilaterally is unchanged. Cardiac contours are stab le. CONCLUSION: Slightly improved lung volumes Electronically signed by: Curt Schmidt MD Board Certified Radiologist 06/18/2018 6:23 AM EST
[2018-06-18 07:31] LABS: Baso # (Auto) 0.1 th/mm3 (0.0-0.2); Baso % (Auto) 0.8 % (0.0-2.0); Eos % (Auto) 0.5 % (0.0-4.0); Hematocrit 24.6 % (39.0-51.0); Hemoglobin 8.3 gm/dL (13.0-17.0); Lymph # (Auto) 0.5 th/mm3 (1.0-4.8); Lymph % (Auto) 6.5 % (9.0-44.0); Mean Corpuscular HGB Conc 33.6 % (32.0-36.0); Mean Corpuscular Hemoglobin 27.6 pg (27.0-34.0); Mean Corpuscular Volume 82.1 fL (80.0-100.0); Mean Platelet Volume 7.9 fL (7.0-11.0); Mono # (Auto) 0.9 th/mm3 (0.0-0.9); Mono % (Auto) 11.5 % (0.0-8.0); Neut # (Auto) 6.4 th/mm3 (1.8-7.7); Neut % (Auto) 80.7 % (16.0-70.0); Platelet Count 226 th/mm3 (150-450); Red Cell Distribution Width 16.6 % (11.6-17.2); White Blood Count 7.9 th/mm3 (4.0-11.0)
[2018-06-18 08:02] LABS: Calcium 9.1 mg/dL (8.5-10.1); Carbon Dioxide 24.4 meq/L (21.0-32.0); Magnesium 2.4 mg/dL (1.5-2.5); Phosphorus 8.9 mg/dL (2.5-4.9); Potassium 3.2 meq/L (3.5-5.1)
[2018-06-18] MEDS: amLODIPine 10 MG Tablet PO SCH (08:13)
[2018-06-18] MEDS: Chlorhexidine 0.12% Oral Kit 15 ML UDC OROPHARYNG SCH (08:14)
[2018-06-18] MEDS: Senna/Docusate Sodium 8.6/50 MG Tablet PO SCH (08:14)
[2018-06-18] MEDS: Heparin - SQ 10,000 UNITS/ML Vial SQ SCH ×2 (08:14→21:46)
--- NOTE | 2018-06-18 11:47 | P.PNCC ---
Subjective Subjective Remarks/Hospital Course: 06/17: No acute changes overnight patient remains intubated and sedated. Patient underwent repeat hemodialysis yesterday afternoon, approximately 1 liter removed. Total output from ileal conduit 850 cc in the last 24hrs. Records obtained from 's office. Tacrolimus level noted subtherapeutic February 2018 2.4 at that time and on admission 2.2. Tacrolimus continued. As 02/18 sirolimus level within normal limits. Sirolimus continued and added to medication regimen. 06/18: No acute events overnight. Patient diet advanced tolerating renal diet at this time. Patient still requiring 2 L O2 nasal cannula incentive spirometry initiated. Patient to undergo IHD this am. Objective Vital Signs / I&O: Vital Signs 06/17/18 11:53 06/17/18 12:00 06/17/18 13:00 Temperature 98.1 F Pulse Rate 84 85 87 Respiratory Rate 12 16 15 Blood Pressure 117/56 L 113/57 L Pulse Oximetry 100 98 98 06/17/18 14:00 06/17/18 16:00 06/17/18 16:05 Temperature Pulse Rate 100 H 103 H 112 H Respiratory Rate 16 24 Blood Pressure 129/60 Pulse Oximetry 97 06/17/18 18:00 06/17/18 20:00 06/17/18 20:31 Temperature 99.2 F Pulse Rate 96 H 102 H 96 H Respiratory Rate 17 16 Blood Pressure 159/72 H Pulse Oximetry 97 06/17/18 22:00 06/18/18 00:00 06/18/18 00:17 Temperature 99 F Pulse Rate 99 H 98 H 96 H Respiratory Rate 17 18 Blood Pressure 162/68 H Pulse Oximetry 98 06/18/18 02:00 06/18/18 04:00 06/18/18 06:00 Temperature 98.9 F Pulse Rate 96 H 101 H 94 H Respiratory Rate 17 Blood Pressure 176/84 H Pulse Oximetry 98 06/18/18 07:54 06/18/18 07:57 06/18/18 08:00 Temperature 98.7 F Pulse Rate 97 H 90 Respiratory Rate 18 18 Blood Pressure 158/78 H Pulse Oximetry 97 99 06/18/18 10:00 Temperature Pulse Rate 94 H Respiratory Rate Blood Pressure Pulse Oximetry Intake & Output 06/17/18 06/18/18 06/18/18 18:59 06:59 18:59 Intake Total 650 / 650 420 / 420 Output Total 350 / 350 400 / 400 Balance 300 / 300 20 / 20 Weight 74.4 kg Intake: IV 650 / 650 300 / 300 Azithromycin Inj 500 MG In NS 250 / 250 Inj 250 ML @ 250 mls/hr IV.SIG Q24H TEETEE Rx#:[id number] Maxipime Inj 1,000 MG In NS Inj 100 / 100 100 ML @ 200 mls/hr IV.SIG Q24H TEETEE Rx#:[id number] Zyvox 600 mg Premix 300 ML @ 300 / 300 300 / 300 300 mls/hr IV.SIG Q12H TEETEE Rx#: [id number] Oral 120 / 120 Output: Urine Amount (Stoma) 350 / 350 400 / 400 Nephrostomy Tube Right 350 / 350 400 / 400 Other: Date of Last Bowel Movement 06/17/18 06/17/18 06/17/18 # Bowel Movements 1 Result Diagrams: 06/18/18 06:45 06/18/18 06:45 Other Results: Laboratory Results WBC 7.9 th/mm3 (4.0-11.0) 06/18/18 06:45 RBC 3.00 mil/mm3 (4.50-5.90) L 06/18/18 06:45 Hgb 8.3 gm/dL (13.0-17.0) L 06/18/18 06:45 Hct 24.6 % (39.0-51.0) L 06/18/18 06:45 MCV 82.1 fL (80.0-100.0) 06/18/18 06:45 MCH 27.6 pg (27.0-34.0) 06/18/18 06:45 MCHC 33.6 % (32.0-36.0) 06/18/18 06:45 RDW 16.6 % (11.6-17.2) 06/18/18 06:45 Plt Count 226 th/mm3 (150-450) 06/18/18 06:45 MPV 7.9 fL (7.0-11.0) 06/18/18 06:45 Prelim Diff (Auto) Slide review pending 06/16/18 01:00 Neut % (Auto) 80.7 % (16.0-70.0) H 06/18/18 06:45 Lymph % (Auto) 6.5 % (9.0-44.0) L 06/18/18 06:45 [place] % (Auto) 11.5 % (0.0-8.0) H 06/18/18 06:45 Eos % (Auto) 0.5 % (0.0-4.0) 06/18/18 06:45 Baso % (Auto) 0.8 % (0.0-2.0) 06/18/18 06:45 Neut # (Auto) 6.4 th/mm3 (1.8-7.7) 06/18/18 06:45 Lymph # (Auto) 0.5 th/mm3 (1.0-4.8) L 06/18/18 06:45 [place] # (Auto) 0.9 th/mm3 (0.0-0.9) 06/18/18 06:45 Eos # (Auto) 0.0 th/mm3 (0.0-0.4) 06/18/18 06:45 Baso # (Auto) 0.1 th/mm3 (0.0-0.2) 06/18/18 06:45 WBC Differential . 06/18/18 06:45 Diff Scan Auto diff confirmed 06/16/18 01:00 Seg Neuts % (Manual) 78 % (16-70) H 06/15/18 21:16 Band Neuts % (Manual) 1 % (0-6) 06/15/18 21:16 Lymphocytes % (Manual) 15 % (9-44) 06/15/18 21:16 Monocytes % (Manual) 5 % (0-8) 06/15/18 21:16 Eosinophils % (Manual) 1 % (0-4) 06/15/18 21:16 Abs Neuts (Manual) 5.8 th/mm3 (1.8-7.7) 06/15/18 21:16 Differential Comment Auto diff final 06/18/18 06:45 Toxic Granulation 2+ (None) H 06/15/18 21:16 Toxic Vacuolation Present (None) H 06/16/18 01:00 Platelet Estimate Normal (Normal) 06/16/18 01:00 Platelet Morphology Normal (Normal) 06/16/18 01:00 Ovalocytes 1+ (None) H 06/16/18 01:00 Acanthocytes (Spur) Occ (None) H 06/16/18 01:00 Keratocytes Occ (None) H 06/16/18 01:00 PT 10.9 sec (9.8-11.6) 06/15/18 21:16 INR 1.1 Ratio 06/15/18 21:16 APTT 31.7 sec (23.4-31.7) 06/15/18 21:16 Puncture Site Right radial 06/17/18 13:35 Patient Temperature 98.6 06/17/18 13:35 O2 Saturation 96 % (90-100) 06/17/18 13:35 ABG pH 7.45 (7.380-7.420) H 06/17/18 13:35 ABG pCO2 33 mmHg (38-42) L 06/17/18 13:35 ABG pO2 108 mmHg (61-120) 06/17/18 13:35 ABG HCO3 23 mmol/L (22-26) 06/17/18 13:35 ABG O2 Content 12.4 Vol % (12.0-20.0) 06/17/18 13:35 ABG Base Excess -0.7 mmol/L (-2-2) 06/17/18 13:35 ABG Methemoglobin 0.9 % (0-2) 06/17/18 13:35 Delvis Test Present 06/17/18 13:35 Hemoglobin 9.0 G/DL (12.0-16.0) L 06/17/18 13:35 Carboxyhemoglobin 0.9 % (0-4) 06/17/18 13:35 O2 Delivery Device Vent 06/17/18 13:35 Liter Flow 4.00 L/M 06/16/18 12:27 Vent Setting Cpap 8/+5/30% 06/17/18 13:35 Inspired O2 30 % 06/17/18 13:35 Critical Value No 06/17/18 13:35 Sodium 139 meq/L (136-145) 06/18/18 06:45 Potassium 3.2 meq/L (3.5-5.1) L 06/18/18 06:45 Chloride 101 meq/L (98-107) 06/18/18 06:45 Carbon Dioxide 24.4 meq/L (21.0-32.0) 06/18/18 06:45 Anion Gap 14 meq/L (5-15) 06/18/18 06:45 BUN 66 mg/dL (7-18) H 06/18/18 06:45 Creatinine 9.31 mg/dL (0.60-1.30) H 06/18/18 06:45 Estimated GFR 6 mL/min (>89) L 06/18/18 06:45 POC Glucose 113 mg/dl (68-110) H 06/15/18 21:25 Random Glucose 87 mg/dL (74-106) 06/18/18 06:45 Lactic Acid 0.4 mmol/L (0.4-2.0) 06/16/18 01:00 Calcium 9.1 mg/dL (8.5-10.1) 06/18/18 06:45 Phosphorus 8.9 mg/dL (2.5-4.9) H D 06/18/18 06:45 Magnesium 2.4 mg/dL (1.5-2.5) 06/18/18 06:45 Total Bilirubin 0.3 mg/dL (0.2-1.0) 06/17/18 04:05 Direct Bilirubin 0.1 mg/dL (0.0-0.2) 06/17/18 04:05 Indirect Bilirubin 0.2 mg/dL (0.0-0.8) 06/17/18 04:05 AST 14 U/L (15-37) L 06/17/18 04:05 ALT 20 U/L (12-78) 06/17/18 04:05 Alkaline Phosphatase 133 U/L (45-117) H 06/17/18 04:05 Ammonia 22 mcmol/L (11-32) 06/15/18 21:16 Total Creatine Kinase 151 U/L (39-308) 06/15/18 21:16 CK-MB (CK-2) 3.9 ng/mL (0.5-3.6) H 06/15/18 21:16 Troponin I Less than 0.02 ng/mL (0.02-0.05) L 06/15/18 21:16 B-Natriuretic Peptide 245 pg/mL (0-100) H 06/15/18 21:16 Total Protein 6.3 g/dL (6.4-8.2) L 06/17/18 04:05 Albumin 2.7 g/dL (3.4-5.0) L 06/17/18 04:05 Triglycerides 204 mg/dL (42-150) H 06/17/18 04:05 Cholesterol 99 mg/dL (120-200) L 06/17/18 04:05 LDL Cholesterol, Calc 15 mg/dL (0-99) 06/17/18 04:05 HDL Cholesterol 43.1 mg/dL (40.0-60.0) 06/17/18 04:05 Cholesterol/HDL Ratio 2.29 Ratio 06/17/18 04:05 Lipase 134 U/L (73-393) 06/15/18 21:16 Urine Color Yellow (Yellw/Straw) 06/16/18 00:00 Urine Clarity Cloudy (Clear) H 06/16/18 00:00 Urine pH 5.0 (5.0-8.5) 06/16/18 00:00 Ur Specific [place] 1.009 (1.002-1.035) 06/16/18 00:00 Urine Protein 100 mg/dL (Neg-Trace) H 06/16/18 00:00 Urine Glucose (UA) Negative mg/dL (Negative) 06/16/18 00:00 Urine Ketones Negative mg/dL (Negative) 06/16/18 00:00 Urine Occult Blood Moderate (Negative) H 06/16/18 00:00 Urine Nitrate Negative (Negative) 06/16/18 00:00 Urine Bilirubin Negative (Negative) 06/16/18 00:00 Urine Urobilinogen Less than 2 mg/dL (Less than 2) 06/16/18 00:00 Ur Leukocyte Esterase Large (Negative) H 06/16/18 00:00 Urine RBC 3 /hpf (0-3) 06/16/18 00:00 Urine WBC 145 /hpf (0-5) H 06/16/18 00:00 Urine WBC Clumps Many (None) H 06/16/18 00:00 Amorphous Sediment Rare /hpf (None) H 06/16/18 00:00 Urine Bacteria Many /hpf (None) H 06/16/18 00:00 Urine Mucus Few /lpf (Occasional) H 06/16/18 00:00 Micro UA Comment Culture indicated 06/16/18 00:00 Ur Microscopic Review Not Reportable 06/16/18 00:00 Urine Culture Comments Culture indicated 06/16/18 00:00 Nasal Screen MRSA (PCR) Not detected (Negative) 06/16/18 02:55 Salicylates 2.9 mg/dL (2.8-20.0) 06/15/18 21:16 Acetaminophen Less than 2.0 mcg/mL (10.0-30.0) L 06/15/18 21:16 Tacrolimus 2.2 ng/mL (5.0-20.0) L 06/16/18 01:00 Hepatitis A IgM Ab Nonreactive (Nonreactive) 06/17/18 04:05 Hep Bs Antigen Nonreactive (Nonreactive) 06/17/18 04:05 Hep B Core IgM Ab Nonreactive (Nonreactive) 06/17/18 04:05 Hep C IgG Ab Nonreactive (Nonreactive) 06/17/18 04:05 Impressions Abdomen/Pelvis CT 06/15/18 21:01 CONCLUSION: Nonspecific CT appearance of the abdomen and pelvis with no definite acute findings. Head CT 06/15/18 21:22 CONCLUSION: Motion degraded exam grossly negative for acute intracranial process. . Head MRI 06/16/18 00:00 CONCLUSION: No acute intracranial findings Chest X-Ray 06/18/18 04:00 CONCLUSION: Slightly improved lung volumes Objective Remarks: GENERAL: This is a well-developed well-nourished male, awake and alert in no acute distress undergoing IHD SKIN: Warm and dry. HEAD: Atraumatic. Normocephalic. EYES: Pupils equal and round. No scleral icterus. No injection or drainage. ENT: No nasal bleeding or discharge. Mucous membranes pink and moist. NECK: Trachea midline. No JVD. CARDIOVASCULAR: Normal rate, regular rhythm. RESPIRATORY: No accessory muscle use. Clear to auscultation. Breath sounds equal bilaterally. GASTROINTESTINAL: Abdomen soft, non-tender, nondistended. No guarding. Ileal conduit right lower quadrant noted MUSCULOSKELETAL: Extremities without clubbing, cyanosis, or 1+ peripheral edema bilateral upper extremity. No obvious deformities. NEUROLOGICAL: GCS 15 awake and alert. RASS 0. No gross focal/sensory deficits. Follows commands in all 4 extremities. Assessment and Plan - Assessment and Plan Plan: Plan by systems: Neurologic: Metabolic encephalopathy Spina bifida, spinal cord stimulator in situ Uremic encephalopathy Neuro checks per ICU protocol Acetaminophen 650 mg every 6 hours as needed for pain Fentanyl and propofol infusions to maintain ventilator synchrony Daily sedation vacation-discontinue Versed, whole propofol and fentanyl infusions current If needed for SBT trials and CPAP trials consider Precedex infusion at low dose Respiratory: Acute hypercapnic respiratory failure Mixed acidosis Maintain O2 sat greater than 92% ABG 7.0 //21/-7 06/18-chest x-ray improved Duo nebs every 4 hours scheduled and every 2 hours as needed Extubated 06/17 Cardiovascular: Hypertension Maintain map greater than 65 Continue patient's home antihypertensive medications Renal: Chronic kidney disease S/P left kidney transplant 1997 Acute on chronic renal failure History of bilateral nephrectomy Vascular cath placement 06/15-post IHD 2 L removed Nephrology followingDr. Mix Monitor BMP Avoid nephrotoxic drugs Obtained records from -creatinine 3.4 on 05/22 Tacrolimus level- 2, continue home medications included tacrolimus 1 mg /d and sirolimus 2mg/d Ileal conduit-monitor output-750cc in 24 hours Urine culture gram-negative rods -- Strict I/Os FEN/GI: Protein calorie malnutrition Hyperlipidemia Maintain n.p.o. status for now for possible extubation Dietary recommendations Zofran for nausea Protonix GI prophylaxis Heme/ID: Monitor CBC Urine culture -gram-negative rods Blood cultures obtained x2- F/U results Sputum culture pending Continue empiric antibiotics- Azithromycin, cefepime , and Linezolid (day 2) Infectious disease consulted-appreciate recommendations Endocrine: Glucose monitoring per ICU protocol -- SSI Prophylaxis: GI Prophylaxis Protonix DVT Prophylaxis -- SCDs Heparin subcu every 12-hour Lines: Peripheral IVs x2. Vas-Cath placement 06/15 Dispo: Level 3 follow-up. Plan transfer in a.m. to [facility] Code Status: Full Discussed Condition With: ENVIRONMENTAL DIRECTOR at bedside
[2018-06-18] MEDS: Azithromycin Inj 500 MG in Sodium Chlor 0.9% Inj 250 ML IV.SIG SCH (12:14)
--- NOTE | 2018-06-18 13:39 | P.CONID ---
History of Present Illness Service: Infectious disease Consult date: 06/18/18 Requesting Physician: Anaya Smith Reason for Consult: Evaluate patient with UTI, S/P renal transplant Primary Care Provider: No Primary Care Physician Chief Complaint: Altered mental status History of Present Illness: Patient seen and examined. Records reviewed. Patient is a 58-year-old male, presented to the hospital for evaluation of change in mental status. Patient apparently has been having nausea and vomiting. GI had evaluated the patient, and had undergone upper endoscopy about a week ago and was told that he has gastroparesis. He was given some medications, and there was no improvement. On the day of admission the came home and found the patient to be quite confused. He was having some involuntary twitching. Patient was taken to the hospital for further evaluation and treatment. Patient has had renal transplant back in 1989. According to the patient his creatinine has been elevated over the last several months. On presentation patient had a creatinine of 15.65. Patient underwent emergency dialysis and there was some improvement in his mentation. However on June 16, patient required intubation. His chest x-ray has shown bilateral pulmonary infiltrates. Patient has had hemodialysis, and his chest x-ray has improved. He was extubated June 17. He is currently on nasal O2. He is undergoing hemodialysis at the time my examination. Patient has been afebrile. He is not on pressors. Patient has had an ileal conduit, and had bilateral nephrectomy done in the past. He had his kidney transplant in 1989. Patient states that he has not been treated for any kind of UTI in the past. On this admission his urinalysis showed pyuria. Urine culture is now showing gram- negative rods. Blood cultures on admission are negative. Sputum culture with normal doris. His chest x-ray the last one is showing improved aeration. His creatinine is better. And he has been afebrile. His hemodynamics are normal. Infectious disease consultation has been requested to assist with evaluation and treatment of his UTI. Review of Systems Constitutional: Denies chills, Denies fever(s) Eyes: Denies discharge, Denies dry eyes Ears, Nose, Mouth, and Throat: Denies difficulty swallowing, Denies ear pain, Denies facial pain, Denies nasal congestion, Denies nasal discharge, Denies sore throat Cardiovascular: Denies chest pain, Denies shortness of breath Respiratory: Denies chest congestion, Denies cough, Denies shortness of breath Gastrointestinal: Denies abdominal pain, Denies nausea, Denies pain with swallowing, Denies vomiting Musculoskeletal: Denies joint pain, Denies joint swelling Skin/Breast: Denies rash, Denies sores, Denies wounds PMFSH - History History Provided By: Patient - Medical History Medical History: Medical History (Last Reviewed 06/18/18 @ 13:34 by Tamara Stevens MD) CKD (chronic kidney disease) Gastroparesis Hyperlipidemia Hypertension Spina bifida Spinal cord stimulator status - Surgical History Surgical History: Surgical History (Last Reviewed 06/18/18 @ 13:34 by Tamara Stevens MD) Status post insertion of spinal cord stimulator Status post kidney transplant - Family History Family History: Family History (Last Reviewed 06/18/18 @ 13:34 by Tamara Stevens MD) Other Family history normal - Tobacco History Second Hand Smoke Exposure: No Smoking Status: Never smoker - Alcohol History How Often Do You Have a Drink Containing Alcohol: Never - Substance Use History Substance History: No History of Abuse - Travel History Recent Travel in the [place] Within the Last 8 Weeks: No Recent Travel Out of the Country Within the Last 8 Weeks: No - Immunization History Tetanus Immunization: Unsure Medications and Allergies Active Medications: Active Medications Acetaminophen (Tylenol) 650 mg PO Q4H PRN PRN Reason: Temp > 100.4 Acetaminophen (Tylenol) 650 mg PO UNSCH PRN PRN Reason: SEE LABEL COMMENTS Al Hydroxide/Mg Hydroxide (Milk Of Magnbrent Liq) 30 ml PO Q12H PRN PRN Reason: Mild Constipation Albuterol (Duoneb Neb (Prn)) 1 ampul NEB Q2HR NEB PRN PRN Reason: SHORTNESS OF BREATH Albuterol (Duoneb Neb (Madan)) 1 ampul NEB Q4HR NEB [facility] Last Admin: 06/18/18 11:40 Dose: 1 ampul Amlodipine Besylate (Norvasc) 10 mg PO DAILY [facility] Last Admin: 06/18/18 08:13 Dose: 10 mg Atorvastatin Calcium (Lipitor) 20 mg PO DAILY [facility] Last Admin: 06/18/18 08:14 Dose: 20 mg Bisacodyl (Dulcolax Supp) 10 mg RECTAL DAILY PRN PRN Reason: SEVERE CONSITIPATION Chlorhexidine Gluconate (Chlorhexidine 2% Cloth) 3 pack TOPICAL DAILY@0400 [facility] Stop: 06/21/18 03:59 Last Admin: 06/18/18 05:34 Dose: 3 pack Chlorhexidine Gluconate (Chlorhexidine 2% Cloth) 3 pack TOPICAL DAILY@0400 PRN PRN Reason: Extra cloth needed Stop: 06/21/18 03:59 Chlorhexidine Gluconate (Peridex 0.12% Oral Kit) 15 ml OROPHARYNG BID@0800, 2000 [facility] Last Admin: 06/18/18 08:14 Dose: Not Given Clonidine HCl (Catapres) 0.1 mg PO UNSCH PRN PRN Reason: SEE LABEL COMMENTS Diphenhydramine HCl (Benadryl) 25 mg PO UNSCH PRN PRN Reason: SEE LABEL COMMENTS Gelatin (Gelfoam 12 Mm/7 Mm Topical) 1 foam TOPICAL PRN PRN PRN Reason: help stop bleeding from site Gentamicin Sulfate (Gentamicin Inj) 20 mg OTHER WITH DIALYSIS PRN PRN Reason: Dwell Gentamycin Lock Heparin Sodium (Porcine) (Heparin Inj) 5,000 units SQ Q12HR [facility] Last Admin: 06/18/18 08:14 Dose: 5,000 units Heparin Sodium (Porcine) (Heparin Inj) 8,000 units OTHER WITH DIALYSIS PRN PRN Reason: for machine prime Heparin Sodium (Porcine) (Heparin Inj) 1,000 units OTHER WITH DIALYSIS PRN PRN Reason: Dwell Heparin to Fill Catheter Fentanyl (Fentanyl 10 Mcg/Ml Premix Drip) 2,500 mcg in 250 mls @ 5 mls/hr IV.SIG TITRATE PRN; Protocol PRN Reason: Per Protocol Last Titration: 06/17/18 09:27 Dose: 0 mcg/hr, 0 mls/hr Propofol (Diprivan 1000 Mg/100 Ml Inj) 1,000 mg in 100 mls @ 2.232 mls/hr IV.CONT TITRATE PRN; Protocol PRN Reason: Per Protocol Last Titration: 06/17/18 09:27 Dose: 0 mcg/kg/min, 0 mls/hr Sodium Chloride (Ns Inj) 1,000 mls @ 0 mls/hr OTHER .Q0M PRN PRN Reason: for prime and rinse back Sodium Chloride (Ns Inj) 1,000 mls @ 0 mls/hr IV.CONT .Q0M PRN PRN Reason: hypotension / volume replace Albumin Human (Flexbumin 25% Inj) 100 mls @ 60 mls/hr IV.SIG WITH DIALYSIS PRN PRN Reason: hypotension / volume replace Sodium Chloride (Ns Inj) 1,000 mls @ 200 mls/hr OTHER .Q5H PRN PRN Reason: for dialyzer flush PRN Dexmedetomidine HCl 200 mcg/ (Sodium Chloride) 50 mls @ 3.72 mls/hr IV.CONT TITRATE PRN; Protocol PRN Reason: Per Protocol Last Titration: 06/17/18 12:00 Dose: 0 mcg/kg/hr, 0 mls/hr Cefepime HCl 1,000 mg/ Sodium (Chloride) 100 mls @ 200 mls/hr IV.SIG Q24H [facility] Last Admin: 06/18/18 12:01 Dose: 200 mls/hr Linezolid (Zyvox 600 Mg Premix) 300 mls @ 300 mls/hr IV.SIG Q12H [facility] Last Admin: 06/18/18 10:30 Dose: 300 mls/hr Azithromycin 500 mg/ Sodium (Chloride) 250 mls @ 250 mls/hr IV.SIG Q24H [facility] Last Admin: 06/18/18 12:14 Dose: 250 mls/hr Lactulose (Lactulose Liq) 30 ml PO DAILY PRN PRN Reason: SEVERE CONSITIPATION Mannitol (Mannitol Inj) 12.5 gm IV.PUSH UNSCH PRN PRN Reason: hypotension / volume replace Miscellaneous Medication () 1 each OROPHARYNG 0000,0400,1200,1600 [facility] Last Admin: 06/18/18 11:27 Dose: Not Given Nitroglycerin (Nitrostat Sl) 0.4 mg SL Q5M PRN PRN Reason: CHEST PAIN Ondansetron HCl (Zofran Inj) 4 mg IV.PUSH Q6H PRN PRN Reason: NAUSEA OR VOMITING Ondansetron HCl (Zofran Inj) 4 mg IV.PUSH UNSCH PRN PRN Reason: NAUSEA OR VOMITING Pantoprazole Sodium (Protonix) 40 mg PO DAILY [facility] Last Admin: 06/18/18 08:14 Dose: 40 mg Senna/Docusate Sodium (Nikkie-Colace) 1 tab PO BID [facility] Last Admin: 06/18/18 08:14 Dose: Not Given Sennosides (Senokot) 17.2 mg PO Q12H PRN PRN Reason: Moderate Constipation Sirolimus (Rapamune) 2 mg PO DAILY@0600 [facility] Last Admin: 06/18/18 05:34 Dose: 2 mg Sodium Chloride (Ns Flush) 2 ml IV.FLUSH PRN PRN PRN Reason: FLUSH AFTER USING IV ACCESS Sodium Chloride (Ns Flush) 2 ml IV.FLUSH BID [facility] Last Admin: 06/18/18 08:14 Dose: 2 ml Sodium Chloride (Ns Flush) 2 ml IV.FLUSH PRN PRN PRN Reason: FLUSH AFTER USING IV ACCESS Sodium Chloride (Ns Flush) 5 ml IV.FLUSH PRN PRN PRN Reason: flush each lumen during HD Tacrolimus (Prograf) 1 mg PO BID@0600,1800 [facility] Last Admin: 06/18/18 05:34 Dose: 1 mg Allergies Allergy/AdvReac Type Severity Reaction Status Date / Time iron dextran complex Allergy rash Verified 06/15/18 21:01 Home Medications Medication Instructions Recorded Confirmed Type amlodipine 10 mg PO DAILY 06/15/18 06/15/18 History atorvastatin 20 mg PO DAILY 06/15/18 06/15/18 History calcitriol 0.5 mcg PO DAILY 06/15/18 06/15/18 History cyanocobalamin (vitamin B-12) 1,000 mcg PO DAILY 06/15/18 06/15/18 History doxycycline hyclate 100 mg PO DAILY 06/15/18 06/15/18 History epoetin pedro [Procrit] 20,000 unit SUBCUT QMONTH 06/15/18 06/15/18 History ondansetron HCl [Zofran] 8 mg PO TID PRN 06/15/18 06/15/18 History oxycodone-acetaminophen 1 tab PO Q6H PRN 06/15/18 06/15/18 History pantoprazole [Protonix] 40 mg PO DAILY 06/15/18 06/15/18 History sirolimus 2 mg PO DAILY 06/15/18 06/15/18 History tacrolimus 1 mg PO QAM 06/15/18 06/15/18 History Exam Vital signs: Vital Signs 06/17/18 14:00 06/17/18 16:00 06/17/18 16:05 Temperature Pulse Rate 100 H 103 H 112 H Respiratory Rate 16 24 Blood Pressure 129/60 Pulse Oximetry 97 06/17/18 18:00 06/17/18 20:00 06/17/18 20:31 Temperature 99.2 F Pulse Rate 96 H 102 H 96 H Respiratory Rate 17 16 Blood Pressure 159/72 H Pulse Oximetry 97 06/17/18 22:00 06/18/18 00:00 06/18/18 00:17 Temperature 99 F Pulse Rate 99 H 98 H 96 H Respiratory Rate 17 18 Blood Pressure 162/68 H Pulse Oximetry 98 06/18/18 02:00 06/18/18 04:00 06/18/18 06:00 Temperature 98.9 F Pulse Rate 96 H 101 H 94 H Respiratory Rate 17 Blood Pressure 176/84 H Pulse Oximetry 98 06/18/18 07:54 06/18/18 07:57 06/18/18 08:00 Temperature 98.7 F Pulse Rate 97 H 90 Respiratory Rate 18 18 Blood Pressure 158/78 H Pulse Oximetry 97 99 06/18/18 10:00 06/18/18 11:40 Temperature Pulse Rate 94 H 98 H Respiratory Rate 18 Blood Pressure Pulse Oximetry Intake & Output 06/17/18 06/18/18 06/18/18 18:59 06:59 18:59 Intake Total 650 / 650 420 / 420 Output Total 350 / 350 400 / 400 Balance 300 / 300 20 / 20 Weight 74.4 kg Intake: IV 650 / 650 300 / 300 Azithromycin Inj 500 MG In NS 250 / 250 Inj 250 ML @ 250 mls/hr IV.SIG Q24H [facility] Rx#:[id number] Maxipime Inj 1,000 MG In NS Inj 100 / 100 100 ML @ 200 mls/hr IV.SIG Q24H [facility] Rx#:[id number] Zyvox 600 mg Premix 300 ML @ 300 / 300 300 / 300 300 mls/hr IV.SIG Q12H [facility] Rx#: [id number] Oral 120 / 120 Output: Urine Amount (Stoma) 350 / 350 400 / 400 Nephrostomy Tube Right 350 / 350 400 / 400 Other: Date of Last Bowel Movement 06/17/18 06/17/18 06/17/18 # Bowel Movements 1 Narrative: Physical examination GENERAL: Patient is a well-nourished, well-developed male, awake and alert, not in respiratory distress. SKIN: Cool and dry. No generalized rash, no ecchymoses and no evidence of embolic lesions. HEAD: Atraumatic. Normocephalic. No temporal wasting, or tenderness. EYES: [place] conjunctiva. No petechia or hemorrhage. Pupils equal, round and reactive to light. Extraocular movements full and intact. No scleral icterus. No injection or drainage. EARS, NOSE AND THROAT: Nose without bleeding or purulent nasal discharge. No sinus tenderness. Mucous membranes pink and moist. No oral lesions noted. No exudate. No oral thrush. NECK: Trachea midline. Supple and not tender, no meningeal signs CARDIOVASCULAR: Regular rate and rhythm. No murmurs, rubs or gallops heard RESPIRATORY: Clear to auscultation. Breath sounds equal bilaterally. No rales , wheezing or rhonchi ABDOMEN: Soft, non-tender, nondistended. Bowel sounds present and normoactive. No guarding. No rebound. No organomegaly. Scars compatible with surgical history. Ileal conduit collection bag with light yellow urine, looks clear EXTREMITIES: No clubbing, cyanosis, or edema. No joint effusion, has good ROM. No calf tenderness. Well perfused and warm. NEUROLOGICAL: Awake and alert. Cranial nerves grossly intact. Motor grossly within normal limits. PSYCHIATRIC: Normal affect, calm and cooperative. LINE: No evidence of infection Results - Labs CBC & Chem 7: 06/18/18 06:45 06/18/18 06:45 Labs: Laboratory Results - last 24 hr 06/16/18 06/17/18 06/18/18 00:00 13:35 06:45 WBC 7.9 RBC 3.00 L Hgb 8.3 L Hct 24.6 L MCV 82.1 MCH 27.6 MCHC 33.6 RDW 16.6 Plt Count 226 MPV 7.9 Neut % (Auto) 80.7 H Lymph % (Auto) 6.5 L [place] % (Auto) 11.5 H Eos % (Auto) 0.5 Baso % (Auto) 0.8 Neut # (Auto) 6.4 Lymph # (Auto) 0.5 L [place] # (Auto) 0.9 Eos # (Auto) 0.0 Baso # (Auto) 0.1 WBC Differential . Differential Comment Auto diff final Puncture Site Right radial Patient Temperature 98.6 O2 Saturation 96 ABG pH 7.45 H ABG pCO2 33 L ABG pO2 108 ABG HCO3 23 ABG O2 Content 12.4 ABG Base Excess -0.7 ABG Methemoglobin 0.9 Delvis Test Present Hemoglobin 9.0 L Carboxyhemoglobin 0.9 O2 Delivery Device Vent Vent Setting Cpap 8/+5/30% Inspired O2 30 Critical Value No Sodium Potassium Chloride Carbon Dioxide Anion Gap BUN Creatinine Estimated GFR Random Glucose Calcium Phosphorus Magnesium Urine Color Yellow Urine Clarity Cloudy H Urine pH 5.0 Ur Specific [place] 1.009 Urine Protein 100 H Urine Glucose (UA) Negative Urine Ketones Negative Urine Occult Blood Moderate H Urine Nitrate Negative Urine Bilirubin Negative Urine Urobilinogen Less than 2 Ur Leukocyte Esterase Large H Urine RBC 3 Urine WBC 145 H Urine WBC Clumps Many H Amorphous Sediment Rare H Urine Bacteria Many H Urine Mucus Few H Micro UA Comment Culture indicated Urine Culture Comments Culture indicated 06/18/18 06:45 WBC RBC Hgb Hct MCV MCH MCHC RDW Plt Count MPV Neut % (Auto) Lymph % (Auto) [place] % (Auto) Eos % (Auto) Baso % (Auto) Neut # (Auto) Lymph # (Auto) [place] # (Auto) Eos # (Auto) Baso # (Auto) WBC Differential Differential Comment Puncture Site Patient Temperature O2 Saturation ABG pH ABG pCO2 ABG pO2 ABG HCO3 ABG O2 Content ABG Base Excess ABG Methemoglobin Delvis Test Hemoglobin Carboxyhemoglobin O2 Delivery Device Vent Setting Inspired O2 Critical Value Sodium 139 Potassium 3.2 L Chloride 101 Carbon Dioxide 24.4 Anion Gap 14 BUN 66 H Creatinine 9.31 H Estimated GFR 6 L Random Glucose 87 Calcium 9.1 Phosphorus 8.9 H D Magnesium 2.4 Urine Color Urine Clarity Urine pH Ur Specific [place] Urine Protein Urine Glucose (UA) Urine Ketones Urine Occult Blood Urine Nitrate Urine Bilirubin Urine Urobilinogen Ur Leukocyte Esterase Urine RBC Urine WBC Urine WBC Clumps Amorphous Sediment Urine Bacteria Urine Mucus Micro UA Comment Urine Culture Comments - Imaging Impressions Chest X-Ray 06/18/18 04:00 CONCLUSION: Slightly improved lung volumes Abdomen/Pelvis CT 06/15/18 21:01 CONCLUSION: Nonspecific CT appearance of the abdomen and pelvis with no definite acute findings. Head CT 06/15/18 21:22 CONCLUSION: Motion degraded exam grossly negative for acute intracranial process. Head MRI 06/16/18 00:00 CONCLUSION: No acute intracranial findings Assessment and Plan - Plan IMpression Acute renal failure on top of chronic renal failure - S/P renal transplant 1989 - now back on HD UTI, GNR, has ileal conduit Respiratory failure due to pulmonary edema, extubated, now on nasal O2 - CXR better Recommendation Continue cefepime Follow C/S and adjust Abx Will make further recommendations once C/S finalized Stop Zyvox MOnitor progress Will follow along with you Thank you for this consultation I will be OOT 06/19-06/27 Other ID MD covering in my absence
--- NOTE | 2018-06-18 16:21 | P.PNNP ---
Subjective Interval history: Resting comfortably with at bedside. Quiet. Hemodialysis today tolerated well. No shortness of breath, nausea, or vomiting. <Christelle Mckenzie - Last Filed: 06/18/18 16:16> Physical Exam Vital signs: Vital Signs 06/17/18 18:00 06/17/18 20:00 06/17/18 20:31 Temperature 99.2 F Pulse Rate 96 H 102 H 96 H Respiratory Rate 17 16 Blood Pressure 159/72 H Pulse Oximetry 97 06/17/18 22:00 06/18/18 00:00 06/18/18 00:17 Temperature 99 F Pulse Rate 99 H 98 H 96 H Respiratory Rate 17 18 Blood Pressure 162/68 H Pulse Oximetry 98 06/18/18 02:00 06/18/18 04:00 06/18/18 06:00 Temperature 98.9 F Pulse Rate 96 H 101 H 94 H Respiratory Rate 17 Blood Pressure 176/84 H Pulse Oximetry 98 06/18/18 07:54 06/18/18 07:57 06/18/18 08:00 Temperature 98.7 F Pulse Rate 97 H 90 Respiratory Rate 18 18 Blood Pressure 158/78 H Pulse Oximetry 97 99 06/18/18 10:00 06/18/18 11:40 06/18/18 12:00 Temperature 98.4 F Pulse Rate 94 H 98 H 89 Respiratory Rate 18 18 Blood Pressure 161/73 H Pulse Oximetry 99 06/18/18 14:00 06/18/18 15:17 06/18/18 16:00 Temperature Pulse Rate 87 92 H 85 Respiratory Rate 16 17 Blood Pressure 169/80 H Pulse Oximetry 100 Intake & Output 06/17/18 06/18/18 06/18/18 18:59 06:59 18:59 Intake Total 650 / 650 420 / 420 Output Total 350 / 350 400 / 400 1500 / 1500 Balance 300 / 300 20 / 20 -1500 / -1500 Weight 74.4 kg Intake: IV 650 / 650 300 / 300 Azithromycin Inj 500 MG In NS 250 / 250 Inj 250 ML @ 250 mls/hr IV.SIG Q24H [facility] Rx#:[id number] Maxipime Inj 1,000 MG In NS Inj 100 / 100 100 ML @ 200 mls/hr IV.SIG Q24H [facility] Rx#:[id number] Zyvox 600 mg Premix 300 ML @ 300 / 300 300 / 300 300 mls/hr IV.SIG Q12H [facility] Rx#: [id number] Oral 120 / 120 Output: Hemodialysis Amount 1500 / 1500 Urine Amount (Stoma) 350 / 350 400 / 400 Nephrostomy Tube Right 350 / 350 400 / 400 Other: Date of Last Bowel Movement 06/17/18 06/17/18 06/17/18 # Bowel Movements 1 Narrative: GENERAL: Resting in no acute distress. SKIN: Warm and dry. NECK: Supple, trachea midline. No JVD CARDIOVASCULAR: Regular rate and rhythm without murmurs, gallops, or rubs. Left IJ Vas cath RESPIRATORY: Breath sounds diminished bilaterally. No accessory muscle use. GASTROINTESTINAL: Abdomen soft, non-tender, nondistended. +BS MUSCULOSKELETAL: No cyanosis, or edema. BACK: Nontender without obvious deformity. No CVA tenderness. <Christelle Mckenzie - Last Filed: 06/18/18 16:16> Vital signs: Vital Signs 06/18/18 00:00 06/18/18 00:17 06/18/18 02:00 Temperature 99 F Pulse Rate 98 H 96 H 96 H Respiratory Rate 17 18 Blood Pressure 162/68 H Pulse Oximetry 98 06/18/18 04:00 06/18/18 06:00 06/18/18 07:54 Temperature 98.9 F Pulse Rate 101 H 94 H 97 H Respiratory Rate 17 18 Blood Pressure 176/84 H Pulse Oximetry 98 06/18/18 07:57 06/18/18 08:00 06/18/18 10:00 Temperature 98.7 F Pulse Rate 90 94 H Respiratory Rate 18 Blood Pressure 158/78 H Pulse Oximetry 97 99 06/18/18 11:40 06/18/18 12:00 06/18/18 14:00 Temperature 98.4 F Pulse Rate 98 H 89 87 Respiratory Rate 18 18 Blood Pressure 161/73 H Pulse Oximetry 99 06/18/18 15:17 06/18/18 16:00 06/18/18 18:00 Temperature Pulse Rate 92 H 85 90 Respiratory Rate 16 17 Blood Pressure 169/80 H Pulse Oximetry 100 06/18/18 20:00 06/18/18 20:37 06/18/18 22:00 Temperature Pulse Rate 95 H 90 112 H Respiratory Rate 18 Blood Pressure Pulse Oximetry 100 Intake & Output 06/18/18 06/18/18 06/19/18 06:59 18:59 06:59 Intake Total 420 / 420 1050 / 1050 Output Total 400 / 400 2200 / 2200 Balance 20 / -1150 / -1150 Weight 74.4 kg Intake: IV 300 / 300 650 / 650 Azithromycin Inj 500 MG In NS 250 / 250 Inj 250 ML @ 250 mls/hr IV.SIG Q24H [facility] Rx#:[id number] Maxipime Inj 1,000 MG In NS Inj 100 / 100 100 ML @ 200 mls/hr IV.SIG Q24H [facility] Rx#:[id number] Zyvox 600 mg Premix 300 ML @ 300 / 300 300 / 300 300 mls/hr IV.SIG Q12H [facility] Rx#: [id number] Oral 120 / 120 400 / 400 Output: Hemodialysis Amount 1500 / 1500 Urine Amount (Stoma) 400 / 400 700 / 700 Nephrostomy Tube Right 400 / 400 700 / 700 Other: Date of Last Bowel Movement 06/17/18 06/17/18 06/17/18 # Bowel Movements 0 <Ronald Mix Q - Last Filed: 06/18/18 23:41> Assessment and Plan - Assessment (1) Chronic kidney disease (CKD) Code(s): N18.9 - Chronic kidney disease, unspecified Status: Acute (2) History of renal transplant Code(s): Z94.0 - Kidney transplant status Status: Acute (3) Respiratory failure Code(s): J96.90 - Respiratory failure, unspecified, unspecified whether with hypoxia or hypercapnia Status: Acute (4) Acute renal failure Code(s): N17.9 - Acute kidney failure, unspecified Status: Acute Qualifiers: Acute renal failure type: unspecified Qualified Code(s): N17.9 - Acute kidney failure, unspecified (5) Vomiting Code(s): R11.10 - Vomiting, unspecified Status: Acute Qualifiers: Vomiting type: unspecified Vomiting Intractability: non-intractable Nausea presence: with nausea Qualified Code(s): R11.2 - Nausea with vomiting, unspecified - Plan Patient with history of chronic kidney disease with Renal Transplant done in 1989. He has been following with Dr. Nicole, Now admitted with Acute kidney injury. Has very high BUN and Creatinine. Also develop Resp. failure and intubated, now extubated Creatinine at 9.3, Urinary output at 750 ml/24 hours. BP is stable. HD yesterday and today. Tolerated well Hypokalemia, K bath adjusted with dialysis Continue antibiotics, renal dose if indicated Will follow labs and urinary output. <Christelle Mckenzie - Last Filed: 06/18/18 16:16> - Assessment (1) Chronic kidney disease (CKD) Code(s): N18.9 - Chronic kidney disease, unspecified Status: Acute (2) History of renal transplant Code(s): Z94.0 - Kidney transplant status Status: Acute (3) Respiratory failure Code(s): J96.90 - Respiratory failure, unspecified, unspecified whether with hypoxia or hypercapnia Status: Acute (4) Acute renal failure Code(s): N17.9 - Acute kidney failure, unspecified Status: Acute Qualifiers: Acute renal failure type: unspecified Qualified Code(s): N17.9 - Acute kidney failure, unspecified (5) Vomiting Code(s): R11.10 - Vomiting, unspecified Status: Acute Qualifiers: Vomiting type: unspecified Vomiting Intractability: non-intractable Nausea presence: with nausea Qualified Code(s): R11.2 - Nausea with vomiting, unspecified - Plan Patient seen and examined, agree with above. Patient is extubated. His old labs seen, has Creatinine of 3.9 in 2017. 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 <Timo Mix - Last Filed: 06/18/18 23:41>
[2018-06-18] MEDS ORDERED: Morphine Sulfate Inj 2 MG/ML Vial IV.PUSH ONE (19:45)
[2018-06-19] MEDS: Morphine Sulfate Inj 2 MG/ML Vial IV.PUSH PRN ×3 (01:06→20:57)
[2018-06-19] MEDS: Senna/Docusate Sodium 8.6/50 MG Tablet PO SCH ×3 (04:46→20:53)
[2018-06-19] MEDS: SIROLIMUS 2 MG PO SCH (05:04)
[2018-06-19 07:37] LABS: Calcium 9.2 mg/dL (8.5-10.1); Carbon Dioxide 29.7 meq/L (21.0-32.0); Magnesium 2.4 mg/dL (1.5-2.5); Phosphorus 6.4 mg/dL (2.5-4.9); Potassium 3.9 meq/L (3.5-5.1)
[2018-06-19] MEDS: Chlorhexidine 0.12% Oral Kit 15 ML UDC OROPHARYNG SCH ×3 (07:37→20:52)
[2018-06-19] MEDS: Oral Hygiene Kit OROPHARYNG SCH ×4 (07:37→23:16)
[2018-06-19] MEDS: Chlorhexidine Gluconate 2% 1 Pack (2 Cloths) TOPICAL SCH (07:37)
[2018-06-19 07:42] LABS: Baso % (Auto) 0.3 % (0.0-2.0); Eos # (Auto) 0.1 th/mm3 (0.0-0.4); Eos % (Auto) 1.1 % (0.0-4.0); Hematocrit 26.6 % (39.0-51.0); Hemoglobin 8.8 gm/dL (13.0-17.0); Lymph # (Auto) 0.8 th/mm3 (1.0-4.8); Mean Corpuscular HGB Conc 32.9 % (32.0-36.0); Mean Corpuscular Hemoglobin 27.2 pg (27.0-34.0); Mean Corpuscular Volume 82.5 fL (80.0-100.0); Mean Platelet Volume 8.3 fL (7.0-11.0); Mono # (Auto) 0.9 th/mm3 (0.0-0.9); Mono % (Auto) 10.4 % (0.0-8.0); Neut # (Auto) 6.7 th/mm3 (1.8-7.7); Neut % (Auto) 79.2 % (16.0-70.0); Platelet Count 253 th/mm3 (150-450); Red Blood Count 3.22 mil/mm3 (4.50-5.90); Red Cell Distribution Width 16.3 % (11.6-17.2); White Blood Count 8.4 th/mm3 (4.0-11.0)
[2018-06-19] MEDS: amLODIPine 10 MG Tablet PO SCH (08:30)
[2018-06-19] MEDS: Heparin - SQ 10,000 UNITS/ML Vial SQ SCH ×2 (08:30→20:52)
--- NOTE | 2018-06-19 11:20 | P.PNIM ---
Subjective Interval history: Follow-up metabolic encephalopathy/acute on chronic kidney disease/[id number] robel June 19, 2018patient seen and examined, complains of left big toe pain states he is having a gout flare up. Currently afebrile. Physical Exam Vital signs: Vital Signs 06/18/18 11:40 06/18/18 12:00 06/18/18 14:00 Temperature 98.4 F Pulse Rate 98 H 89 87 Respiratory Rate 18 18 Blood Pressure 161/73 H Pulse Oximetry 99 06/18/18 15:17 06/18/18 16:00 06/18/18 18:00 Temperature Pulse Rate 92 H 85 90 Respiratory Rate 16 17 Blood Pressure 169/80 H Pulse Oximetry 100 06/18/18 20:00 06/18/18 20:37 06/18/18 22:00 Temperature 98.7 F Pulse Rate 95 H 90 112 H Respiratory Rate 21 18 Blood Pressure 154/75 H Pulse Oximetry 100 06/19/18 00:00 06/19/18 02:00 06/19/18 04:00 Temperature 98.4 F 98.4 F Pulse Rate 107 H 112 H 93 H Respiratory Rate 21 21 Blood Pressure 139/75 161/77 H Pulse Oximetry 06/19/18 04:44 06/19/18 04:45 06/19/18 06:00 Temperature Pulse Rate 112 H Respiratory Rate 20 20 Blood Pressure Pulse Oximetry 06/19/18 08:00 06/19/18 08:25 06/19/18 10:00 Temperature 98.1 F Pulse Rate 94 H 89 Respiratory Rate 18 Blood Pressure 163/75 H Pulse Oximetry 100 98 Intake & Output 06/18/18 06/19/18 06/19/18 18:59 06:59 18:59 Intake Total 1050 / 1050 240 / 240 300 / 300 Output Total 2200 / 2200 Balance -1150 / -1150 240 / 240 300 / 300 Intake: IV 650 / 650 300 / 300 Azithromycin Inj 500 MG In NS 250 / 250 Inj 250 ML @ 250 mls/hr IV.SIG Q24H [facility] Rx#:[id number] Maxipime Inj 1,000 MG In NS Inj 100 / 100 100 ML @ 200 mls/hr IV.SIG Q24H [facility] Rx#:[id number] Zyvox 600 mg Premix 300 ML @ 300 / 300 300 / 300 300 mls/hr IV.SIG Q12H [facility] Rx#: [id number] Oral 400 / 400 240 / 240 Output: Hemodialysis Amount 1500 / 1500 Urine Amount (Stoma) 700 / 700 Nephrostomy Tube Right 700 / 700 Other: Date of Last Bowel Movement 06/17/18 06/17/18 06/17/18 # Bowel Movements 0 Narrative: GENERAL:NAD HEENT:not pale,anicteric NECK:LIJ hemodialysis catheter in place. CARDIOVASCULAR: Regular rate and rhythm without murmurs, gallops, or rubs. RESPIRATORY: Clear to auscultation. Breath sounds equal bilaterally. No wheezes , rales, or rhonchi. GASTROINTESTINAL: Abdomen soft, non-tender, nondistended. Normal active bowel sounds MUSCULOSKELETAL: Extremities without clubbing, cyanosis, or edema. NEURO: patient drowsy but awakens to name. Results Labs CBC & Chem 7: 06/19/18 04:45 06/19/18 04:45 Labs: Microbiology 06/17/18 10:16 Blood - Peripheral Aerobic Blood Culture - Preliminary No growth in 2 days 06/17/18 10:16 Blood - Peripheral Anaerobic Blood Culture - Preliminary No growth in 2 days 06/17/18 10:10 Blood - Peripheral Aerobic Blood Culture - Preliminary No growth in 2 days 06/17/18 10:10 Blood - Peripheral Anaerobic Blood Culture - Preliminary No growth in 2 days 06/16/18 00:00 Clean Catch Urine Urine Culture - Final Klebsiella oxytoca Escherichia coli 06/16/18 15:30 Sputum - Endotracheal Gram Stain - Final 06/16/18 15:30 Sputum - Endotracheal Sputum Culture - Preliminary Heavy growth normal respiratory doris at 24 hours Assessment and Plan Plan 58-year-old man with Metabolic encephalopathy-resolved Spina bifida, spinal cord stimulator in situ Uremic encephalopathy-resolved Neuro checks per ICU protocol Acetaminophen 650 mg every 6 hours as needed for pain Acute hypercapnic respiratory failure-resolved Mixed acidosis-resolved Maintain O2 sat greater than 92% Duo nebs every 4 hours scheduled and every 2 hours as needed Extubated 06/17 Hypertension Maintain map greater than 65 Continue patient's home antihypertensive medications Acute on chronic kidney disease S/P left kidney transplant 1997 History of bilateral nephrectomy Vascular cath placement 06/15-post IHD 2 L removed Nephrology followingDr. Mix Avoid nephrotoxic drugs Tacrolimus level- 2, continue home medications included tacrolimus 1 mg /d and sirolimus 2mg/d Ileal conduit-monitor output [id number] robel Currently on IV cefepime per ID and monitor culture Protein calorie malnutrition Hyperlipidemia Dietary recommendations Zofran for nausea Protonix GI prophylaxis Gout flareup Secondary to acute on chronic kidney disease with consider steroid Prophylaxis: GI Prophylaxis Protonix DVT Prophylaxis -- SCDs Heparin subcu every 12-hour Transfer to [facility] Monitor CBC and BMP Progress Note: Quality VTE Deep Vein Thrombosis/Pulmonary Embolism Present on Admission: No
--- NOTE | 2018-06-19 12:29 | P.PNNP ---
Subjective Interval history: Patient is alert, complaining of pain in left Big toe, no SOB. Physical Exam Vital signs: Vital Signs 06/18/18 14:00 06/18/18 15:17 06/18/18 16:00 Temperature Pulse Rate 87 92 H 85 Respiratory Rate 16 17 Blood Pressure 169/80 H Pulse Oximetry 100 06/18/18 18:00 06/18/18 20:00 06/18/18 20:37 Temperature 98.7 F Pulse Rate 90 95 H 90 Respiratory Rate 21 18 Blood Pressure 154/75 H Pulse Oximetry 100 06/18/18 22:00 06/19/18 00:00 06/19/18 02:00 Temperature 98.4 F Pulse Rate 112 H 107 H 112 H Respiratory Rate 21 Blood Pressure 139/75 Pulse Oximetry 06/19/18 04:00 06/19/18 04:44 06/19/18 04:45 Temperature 98.4 F Pulse Rate 93 H Respiratory Rate 21 20 20 Blood Pressure 161/77 H Pulse Oximetry 06/19/18 06:00 06/19/18 08:00 06/19/18 08:25 Temperature 98.1 F Pulse Rate 112 H 94 H Respiratory Rate 18 Blood Pressure 163/75 H Pulse Oximetry 100 98 06/19/18 10:00 Temperature Pulse Rate 89 Respiratory Rate Blood Pressure Pulse Oximetry Intake & Output 06/18/18 06/19/18 06/19/18 18:59 06:59 18:59 Intake Total 1050 / 1050 240 / 240 300 / 300 Output Total 2200 / 2200 Balance -1150 / -1150 240 / 240 300 / 300 Intake: IV 650 / 650 300 / 300 Azithromycin Inj 500 MG In NS 250 / 250 Inj 250 ML @ 250 mls/hr IV.SIG Q24H [facility] Rx#:[id number] Maxipime Inj 1,000 MG In NS Inj 100 / 100 100 ML @ 200 mls/hr IV.SIG Q24H [facility] Rx#:[id number] Zyvox 600 mg Premix 300 ML @ 300 / 300 300 / 300 300 mls/hr IV.SIG Q12H [facility] Rx#: [id number] Oral 400 / 400 240 / 240 Output: Hemodialysis Amount 1500 / 1500 Urine Amount (Stoma) 700 / 700 Nephrostomy Tube Right 700 / 700 Other: Date of Last Bowel Movement 06/17/18 06/17/18 06/17/18 # Bowel Movements 0 Narrative: GENERAL: Resting in no acute distress. SKIN: Warm and dry. NECK: Supple, trachea midline. No JVD CARDIOVASCULAR: Regular rate and rhythm without murmurs, gallops, or rubs. Left IJ Vas cath RESPIRATORY: Breath sounds diminished bilaterally. No accessory muscle use. GASTROINTESTINAL: Abdomen soft, non-tender, nondistended. +BS MUSCULOSKELETAL: No cyanosis, or edema. BACK: Nontender without obvious deformity. No CVA tenderness. Assessment and Plan - Assessment (1) Chronic kidney disease (CKD) Code(s): N18.9 - Chronic kidney disease, unspecified Status: Acute (2) History of renal transplant Code(s): Z94.0 - Kidney transplant status Status: Acute (3) Respiratory failure Code(s): J96.90 - Respiratory failure, unspecified, unspecified whether with hypoxia or hypercapnia Status: Acute (4) Acute renal failure Code(s): N17.9 - Acute kidney failure, unspecified Status: Acute Qualifiers: Acute renal failure type: unspecified Qualified Code(s): N17.9 - Acute kidney failure, unspecified (5) Vomiting Code(s): R11.10 - Vomiting, unspecified Status: Acute Qualifiers: Vomiting type: unspecified Vomiting Intractability: non-intractable Nausea presence: with nausea Qualified Code(s): R11.2 - Nausea with vomiting, unspecified - Plan Patient with history of renal transplant done in 1989, now admitted with SOB and was intubated. Now the Patient is extubated. His old labs seen, has Creatinine of 3.9 in 2017. HD was done yesterday. Add Phoslo for high Po4. Prednisone for possible gout. Check Uric acid. Will get PermCath next week.
[2018-06-19] MEDS: predniSONE 10 MG Tablet PO SCH (13:27)
[2018-06-19] MEDS: Calcium Acetate 667 MG Capsule PO SCH ×2 (13:27→17:25)
--- NOTE | 2018-06-19 21:17 | P.PNID ---
Subjective Remarks: Delayed entry ID X cover for Dr Stevens chart was reviewed Patient is a 58-year-old male immunosuppresserd (sirolimus+ tcrolimus), renal transplant since 1989 with ARF/CKD in transplant Back on HD , presented to the hospital for evaluation of change in mental status. Patient has had an ileal conduit, and had bilateral nephrectomy done in the past. He had his kidney transplant in 1989. Found to have UTI Urine culture is now showing gram-negative rods. Blood cultures on admission are negative. Improved on abx Transferred to floor Antibiotics: cefpeime linezolid IV Allergies/Adverse Reactions: Allergies iron dextran complex Allergy (Verified 06/15/18 21:01) rash Objective Vital Signs 06/18/18 22:00 06/19/18 00:00 06/19/18 02:00 Temperature 98.4 F Pulse Rate 112 H 107 H 112 H Respiratory Rate 21 Blood Pressure 139/75 Pulse Oximetry 06/19/18 04:00 06/19/18 04:44 06/19/18 04:45 Temperature 98.4 F Pulse Rate 93 H Respiratory Rate 21 20 20 Blood Pressure 161/77 H Pulse Oximetry 06/19/18 06:00 06/19/18 08:00 06/19/18 08:25 Temperature 98.1 F Pulse Rate 112 H 94 H Respiratory Rate 18 Blood Pressure 163/75 H Pulse Oximetry 100 98 06/19/18 10:00 06/19/18 12:00 06/19/18 14:00 Temperature Pulse Rate 89 98 H 91 H Respiratory Rate 18 Blood Pressure 150/71 H Pulse Oximetry 100 06/19/18 16:00 06/19/18 19:55 06/19/18 20:00 Temperature 98.2 F Pulse Rate 97 H Respiratory Rate 18 20 Blood Pressure 151/76 H Pulse Oximetry 93 L 98 Intake & Output 06/19/18 06/19/18 06/20/18 06:59 18:59 06:59 Intake Total 240 / 240 400 / 400 500 / 500 Balance 240 / 240 400 / 400 500 / 500 Intake: IV 400 / 400 500 / 500 Precedex Inj 200 MCG In NS Inj 50 / 50 48 ML @ 0.2 MCG/KG/HR 3.72 mls/ hr IV.CONT TITRATE PRN Rx#: [id number] Diprivan 1000 mg/100 ml Inj 1, 100 / 100 000 mg In 100 ml @ 5 MCG/KG/MIN 2.232 mls/hr IV.CONT TITRATE PRN Rx#:[id number] Maxipime Inj 1,000 MG In NS Inj 100 / 100 100 ML @ 200 mls/hr IV.SIG Q24H REPLACED BY [facility] Rx#:[id number] Zyvox 600 mg Premix 300 ML @ 300 / 300 300 mls/hr IV.SIG Q12H REPLACED BY [facility] Rx#: [id number] fentaNYL 10 mcg/mL Premix Drip 250 / 250 2,500 mcg In 250 ml @ 50 MCG/HR 5 mls/hr IV.SIG TITRATE PRN Rx #:[id number] Oral 240 / 240 Other: Date of Last Bowel Movement 06/17/18 06/17/18 06/16/18 15:30 Sputum - Endotracheal Gram Stain - Final 06/16/18 15:30 Sputum - Endotracheal Sputum Culture - Preliminary Staphylococcus aureus 06/17/18 10:16 Blood - Peripheral Aerobic Blood Culture - Preliminary No growth in 2 days 06/17/18 10:16 Blood - Peripheral Anaerobic Blood Culture - Preliminary No growth in 2 days 06/17/18 10:10 Blood - Peripheral Aerobic Blood Culture - Preliminary No growth in 2 days 06/17/18 10:10 Blood - Peripheral Anaerobic Blood Culture - Preliminary No growth in 2 days 06/16/18 00:00 Clean Catch Urine Urine Culture - Final Klebsiella oxytoca Escherichia coli Lab - Hematology Results 06/18/18 06/19/18 06:45 04:45 WBC 7.9 8.4 RBC 3.00 L 3.22 L Hgb 8.3 L 8.8 L Hct 24.6 L 26.6 L MCV 82.1 82.5 MCH 27.6 27.2 MCHC 33.6 32.9 RDW 16.6 16.3 Plt Count 226 253 MPV 7.9 8.3 Neut % (Auto) 80.7 H 79.2 H Lymph % (Auto) 6.5 L 9.0 [place] % (Auto) 11.5 H 10.4 H Eos % (Auto) 0.5 1.1 Baso % (Auto) 0.8 0.3 Neut # (Auto) 6.4 6.7 Lymph # (Auto) 0.5 L 0.8 L [place] # (Auto) 0.9 0.9 Eos # (Auto) 0.0 0.1 Baso # (Auto) 0.1 0.0 WBC Differential . . Differential Comment Auto diff final Auto diff final Lab - Chemistry Results 06/18/18 06/19/18 06:45 04:45 Sodium 139 139 Potassium 3.2 L 3.9 Chloride 101 100 Carbon Dioxide 24.4 29.7 Anion Gap 14 9 BUN 66 H 38 H Creatinine 9.31 H 6.76 H Estimated GFR 6 L 9 L Random Glucose 87 85 Calcium 9.1 9.2 Phosphorus 8.9 H D 6.4 H D Magnesium 2.4 2.4 Imaging: ITS Impressions Abdomen/Pelvis CT 06/15/18 21:01 CONCLUSION: Nonspecific CT appearance of the abdomen and pelvis with no definite acute findings. Head CT 06/15/18 21:22 CONCLUSION: Motion degraded exam grossly negative for acute intracranial process. . Head MRI 06/16/18 00:00 CONCLUSION: No acute intracranial findings Chest X-Ray 06/18/18 04:00 CONCLUSION: Slightly improved lung volumes Physical Exam: GENERAL: NAD SKIN: Warm and dry. NO rash EYES: Pupils equal and round. No scleral icterus. No injection or drainage. CARDIOVASCULAR: Regular rate and rhythm. RESPIRATORY: No accessory muscle use. Clear to auscultation. Breath sounds equal bilaterally. GASTROINTESTINAL: Abdomen soft, non-tender, nondistended. MUSCULOSKELETAL: Extremities without clubbing, cyanosis, or edema. NEUROLOGICAL: Awake and alert. Grossly non focal. Normal speech. PSYCHIATRIC: Appropriate mood and affect; Assessment and Plan - Plan IMpression Acute renal failure on top of chronic renal failure - S/P renal transplant 1989 - now back on HD - on immunosuppression in attempt to salvage kidney UTI, GNR, has ileal conduit - Kleb, E.coli Respiratory failure due to pulmonary edema, extubated, now on nasal O2 - CXR better MSSA in sputum Recommendation change cefepime to CFTX dc Zyvox
[2018-06-19] MEDS ORDERED: Ibuprofen 400 MG Tablet PO ONE (23:07)
[2018-06-20] MEDS: Morphine Sulfate Inj 2 MG/ML Vial IV.PUSH PRN ×4 (00:08→12:27)
[2018-06-20] MEDS: Chlorhexidine Gluconate 2% 1 Pack (2 Cloths) TOPICAL SCH (03:51)
[2018-06-20] MEDS: Oral Hygiene Kit OROPHARYNG SCH ×4 (03:51→23:09)
[2018-06-20] MEDS: SIROLIMUS 2 MG PO SCH (05:16)
[2018-06-20] MEDS: Heparin - SQ 10,000 UNITS/ML Vial SQ SCH ×2 (09:22→20:35)
[2018-06-20] MEDS: predniSONE 10 MG Tablet PO SCH (09:23)
[2018-06-20] MEDS: Calcium Acetate 667 MG Capsule PO SCH ×3 (09:23→17:44)
[2018-06-20 09:24] LABS: Baso % (Auto) 0.4 % (0.0-2.0); Eos # (Auto) 0.1 th/mm3 (0.0-0.4); Eos % (Auto) 0.6 % (0.0-4.0); Hemoglobin 8.7 gm/dL (13.0-17.0); Lymph % (Auto) 10.5 % (9.0-44.0); Mean Corpuscular HGB Conc 32.2 % (32.0-36.0); Mean Corpuscular Hemoglobin 26.5 pg (27.0-34.0); Mean Corpuscular Volume 82.4 fL (80.0-100.0); Mean Platelet Volume 8.2 fL (7.0-11.0); Mono # (Auto) 0.7 th/mm3 (0.0-0.9); Neut # (Auto) 7.9 th/mm3 (1.8-7.7); Neut % (Auto) 81.5 % (16.0-70.0); Platelet Count 319 th/mm3 (150-450); Red Blood Count 3.28 mil/mm3 (4.50-5.90); Red Cell Distribution Width 16.1 % (11.6-17.2); White Blood Count 9.7 th/mm3 (4.0-11.0)
[2018-06-20] MEDS: amLODIPine 10 MG Tablet PO SCH (09:24)
[2018-06-20 10:10] LABS: Alanine Aminotransferase 40 U/L (12-78); Albumin 3.1 g/dL (3.4-5.0); Alkaline Phosphatase 143 U/L (45-117); Anion Gap 14 meq/L (5-15); Aspartate Aminotransferase 34 U/L (15-37); Blood Urea Nitrogen 50 mg/dL (7-18); Calcium 9.4 mg/dL (8.5-10.1); Carbon Dioxide 26.9 meq/L (21.0-32.0); Chloride 97 meq/L (98-107); Glomerular Filtration Rate 7 mL/min (>89); Glucose,Random 65 mg/dL (74-106); Potassium 4.1 meq/L (3.5-5.1); Sodium 138 meq/L (136-145); Total Protein 7.5 g/dL (6.4-8.2); Uric Acid 5.6 mg/dl (2.6-7.2)
[2018-06-20] MEDS: Chlorhexidine 0.12% Oral Kit 15 ML UDC OROPHARYNG SCH ×2 (12:17→20:35)
[2018-06-20] MEDS: Senna/Docusate Sodium 8.6/50 MG Tablet PO SCH ×2 (12:18→20:35)
--- NOTE | 2018-06-20 17:20 | P.PNIM ---
Subjective Interval history: Follow up for patient who initially came in for uremic encephalopathy and sob requiring intubation and HD. Patient laying down in bed. No acute distress. No specific complaints from the patient. Physical Exam Vital signs: Vital Signs 06/19/18 19:55 06/19/18 20:00 06/20/18 00:00 Temperature 98.2 F 98.8 F Pulse Rate 97 H 92 H Respiratory Rate 20 20 Blood Pressure 151/76 H 133/71 Pulse Oximetry 93 L 98 97 06/20/18 04:00 06/20/18 08:00 06/20/18 09:20 Temperature 98.6 F Pulse Rate 86 Respiratory Rate 18 17 18 Blood Pressure 142/69 H Pulse Oximetry 97 06/20/18 12:00 06/20/18 12:29 Temperature 98.6 F Pulse Rate 82 Respiratory Rate 17 18 Blood Pressure 130/64 Pulse Oximetry 96 Intake & Output 06/19/18 06/20/18 06/20/18 18:59 06:59 18:59 Intake Total 400 / 400 600 / 600 Balance 400 / 400 600 / 600 Weight 71.5 kg Intake: IV 400 / 400 600 / 600 Precedex Inj 200 MCG In NS Inj 50 / 50 48 ML @ 0.2 MCG/KG/HR 3.72 mls/ hr IV.CONT TITRATE PRN Rx#: [id number] Diprivan 1000 mg/100 ml Inj 1, 100 / 100 000 mg In 100 ml @ 5 MCG/KG/MIN 2.232 mls/hr IV.CONT TITRATE PRN Rx#:[id number] Maxipime Inj 1,000 MG In NS Inj 100 / 100 100 ML @ 200 mls/hr IV.SIG Q24H [facility] Rx#:[id number] Zyvox 600 mg Premix 300 ML @ 300 / 300 300 mls/hr IV.SIG Q12H [facility] Rx#: [id number] Rocephin Inj 1,000 MG In NS Inj 100 / 100 100 ML @ 200 mls/hr IV.SIG Q24H [facility] Rx#:[id number] fentaNYL 10 mcg/mL Premix Drip 250 / 250 2,500 mcg In 250 ml @ 50 MCG/HR 5 mls/hr IV.SIG TITRATE PRN Rx #:[id number] Other: # Voids 2 Date of Last Bowel Movement 02/14/19 02/16/19 Narrative: Alert and oriented x 3 S1S2 CTA b/l Abd soft, nontender, bowel sounds positive No edema of the exts No focal neuro deficits. Results Labs CBC & Chem 7: 06/20/18 06:23 06/20/18 06:23 Labs: Microbiology 06/16/18 15:30 Sputum - Endotracheal Gram Stain - Final 06/16/18 15:30 Sputum - Endotracheal Sputum Culture - Final Staphylococcus aureus 06/17/18 10:16 Blood - Peripheral Aerobic Blood Culture - Preliminary No growth in 3 days 06/17/18 10:16 Blood - Peripheral Anaerobic Blood Culture - Preliminary No growth in 3 days 06/17/18 10:10 Blood - Peripheral Aerobic Blood Culture - Preliminary No growth in 3 days 06/17/18 10:10 Blood - Peripheral Anaerobic Blood Culture - Preliminary No growth in 3 days Assessment and Plan Plan Patient is a 58 y/o male with hx of spina bifida, s/p left kidney transplant in 1997, hx of b/l nephrectomy, and gout. Patient was admitted to the hospital with sob and was intubated. He required HD during the hospitalizaiton. S/p extubation and transfer to the med surg floor. 1. Metabolic Encephalopathy resolved 2. Uremic Encephalopathy resolved 3. SHYANNE on CKD, now on HD Patient is being followed by Nephrology, vasc cath placed on 06/15, s/p HD. Continue to follow with recs from Nephro, plan for vas cath placement this next week. Continue meds for renal transplant. 4. UTI Cultures growing E coli, and klebsiella ID following Continue Rocephin per ID recs. Blood cxs are negative. 5. HTN Current SBP in the 130s currently. Elevated occasionally throughout the day. Con norvasc. We will monitor and adjust the meds as needed. 6. Gout flare up Uric acid level normal 5.6 Continue steroids. Heparin for DVT prophylaxis. D/C planning: Nephrology following. Likely will need TDC and HD plan prior to discharge. Progress Note: Quality VTE Deep Vein Thrombosis/Pulmonary Embolism Present on Admission: No
--- NOTE | 2018-06-20 21:00 | P.PNNP ---
Subjective Interval history: Patient is alert, seen in the afternoon, not in distress. Physical Exam Vital signs: Vital Signs 06/20/18 00:00 06/20/18 04:00 06/20/18 08:00 Temperature 98.8 F 98.6 F Pulse Rate 92 H 86 Respiratory Rate 20 18 17 Blood Pressure 133/71 142/69 H Pulse Oximetry 97 97 06/20/18 09:20 06/20/18 12:00 06/20/18 12:29 Temperature 98.6 F Pulse Rate 82 Respiratory Rate 18 17 18 Blood Pressure 130/64 Pulse Oximetry 96 06/20/18 16:00 Temperature 98.4 F Pulse Rate 84 Respiratory Rate 17 Blood Pressure 125/63 Pulse Oximetry 96 Intake & Output 06/20/18 06/20/18 06/21/18 06:59 18:59 06:59 Intake Total 600 / 600 500 / 500 Balance 600 / 600 500 / 500 Weight 71.5 kg Intake: IV 600 / 600 Precedex Inj 200 MCG In NS Inj 50 / 50 48 ML @ 0.2 MCG/KG/HR 3.72 mls/ hr IV.CONT TITRATE PRN Rx#: [id number] Diprivan 1000 mg/100 ml Inj 1, 100 / 100 000 mg In 100 ml @ 5 MCG/KG/MIN 2.232 mls/hr IV.CONT TITRATE PRN Rx#:[id number] Rocephin Inj 1,000 MG In NS Inj 100 / 100 100 ML @ 200 mls/hr IV.SIG Q24H [facility] Rx#:[id number] fentaNYL 10 mcg/mL Premix Drip 250 / 250 2,500 mcg In 250 ml @ 50 MCG/HR 5 mls/hr IV.SIG TITRATE PRN Rx #:[id number] Oral 500 / 500 Other: # Voids 2 2 Date of Last Bowel Movement 06/19/18 # Bowel Movements 0 Narrative: GENERAL: Alert, no SOB, doing better. SKIN: Warm and dry. NECK: Supple, trachea midline. No JVD CARDIOVASCULAR: Regular rate and rhythm without murmurs, gallops, or rubs. Left IJ Vas cath RESPIRATORY: Breath sounds diminished bilaterally. No accessory muscle use. GASTROINTESTINAL: Abdomen soft, non-tender, nondistended. +BS MUSCULOSKELETAL: No cyanosis, or edema. BACK: Nontender without obvious deformity. No CVA tenderness. Assessment and Plan - Assessment (1) Chronic kidney disease (CKD) Code(s): N18.9 - Chronic kidney disease, unspecified Status: Acute (2) History of renal transplant Code(s): Z94.0 - Kidney transplant status Status: Acute (3) Respiratory failure Code(s): J96.90 - Respiratory failure, unspecified, unspecified whether with hypoxia or hypercapnia Status: Acute (4) Acute renal failure Code(s): N17.9 - Acute kidney failure, unspecified Status: Acute Qualifiers: Acute renal failure type: unspecified Qualified Code(s): N17.9 - Acute kidney failure, unspecified (5) Vomiting Code(s): R11.10 - Vomiting, unspecified Status: Acute Qualifiers: Vomiting type: unspecified Vomiting Intractability: non-intractable Nausea presence: with nausea Qualified Code(s): R11.2 - Nausea with vomiting, unspecified - Plan Patient with history of renal transplant done in 1989, now admitted with SOB and was intubated. Now the Patient is extubated. His old labs seen, has Creatinine of 3.9 in 2017. HD was done on Thursday. Add Epogen and check iron study. On Phoslo for high Po4. Prednisone for possible gout. Uric acid is normal. Will get PermCath tomorrow.
[2018-06-21] MEDS: Oral Hygiene Kit OROPHARYNG SCH ×3 (04:30→16:52)
[2018-06-21] MEDS: SIROLIMUS 2 MG PO SCH (06:12)
[2018-06-21 08:12] LABS: % Iron Saturation 30.6 % (20-50); Calcium 9.1 mg/dL (8.5-10.1); Carbon Dioxide 27.5 meq/L (21.0-32.0); Magnesium 2.4 mg/dL (1.5-2.5)
[2018-06-21] MEDS: Chlorhexidine 0.12% Oral Kit 15 ML UDC OROPHARYNG SCH ×2 (08:18→19:58)
[2018-06-21] MEDS ORDERED: Sodium Chlor 0.9% Inj 250 ML ONE (08:38)
[2018-06-21] MEDS ORDERED: fentaNYL Citrate Inj 250 MCG/5 ML Ampul ONE (08:48)
[2018-06-21] MEDS ORDERED: Lidocaine 1%/Epinephrine 1:100,000 Inj 20 ML Vial ONE (08:50)
[2018-06-21] MEDS ORDERED: *Heparin 10,000 UNITS/10 ML Vial Periprocedural ONLY ONE (08:50)
[2018-06-21] MEDS: Calcium Acetate 667 MG Capsule PO SCH ×4 (09:26→20:58)
--- NOTE | 2018-06-21 09:33 | P.RAD ---
Post Procedure Progress Note - Pre Procedure Diagnosis (1) Acute renal failure (2) Chronic kidney disease (CKD) - Post Procedure Diagnosis (1) Acute renal failure (2) Chronic kidney disease (CKD) - Procedure Information Procedure Date: 06/21/18 Supervising Radiologist: Terence Dalton MD Estimated blood loss (mL): 0 Anesthesia: Local, Conscious Sedation - Plan of Activity Patient to Unit: Nursing Unit Patient Condition: Good Additional Comments: PermCath placed via the right IJ catheter in good position OK for use Full report to follow See PACS Report for procedural detail/treatment.
[2018-06-21] MEDS: predniSONE 10 MG Tablet PO SCH (11:14)
[2018-06-21] MEDS: Vitamin B Complex/Vit C/Folic Tablet PO SCH (11:14)
[2018-06-21] MEDS: Senna/Docusate Sodium 8.6/50 MG Tablet PO SCH ×2 (11:15→20:58)
[2018-06-21] MEDS: Heparin - SQ 10,000 UNITS/ML Vial SQ SCH ×2 (11:15→20:58)
[2018-06-21] MEDS: amLODIPine 10 MG Tablet PO SCH (11:15)
--- NOTE | 2018-06-21 13:11 | P.DS ---
DS: Providers Date of admission: 06/15/18 22:46 Primary care physician: No Primary Care Physician Consults: 06/16/18 01:43 Consult to Nephrology Stat Consulting Provider: Timo Mix For STAT consult, spoke directly to:: Dr. Mix Does the patient have a Umbrella Repairer who follows them?: Yes Preferred Nephrology Salad Bar Clerk:: Intertype Operator Physician Reason for Consultation: Acute renal failure Notified:: Service Spoke with:: Nita Date Notified:: 06/16/18 Time Notified:: 01:49 Ordering Provider: AGNIESZKA 06/16/18 13:33 Consult to Marketing Technology Specialist Stat Consulting Provider: Anaya Smith For STAT consult, spoke directly to:: Dr. Smith Reason for Consultation: Obtundation, CO2 narcosis. Notified:: Service Spoke with:: KEVIN Date Notified:: 06/16/18 Time Notified:: 13:37 Ordering Provider: MAHSA 06/18/18 11:29 Consult to Infectious Diseases Routine Consulting Provider: Tamara Stevens Preferred Salad Bar Clerk:: Keke Clemons Reason for Consultation: 58-year-old male status post kidney transplant 1995 with ileal conduit now with urosepsis noted gram-negative rods. Currently on tacrolimus and sirolimus Notified:: Service Spoke with:: NITO Date Notified:: 06/18/18 Time Notified:: 11:39 Ordering Provider: RADHA 06/18/18 11:47 Consult to Hospitalist Routine Consulting Provider: Hood Glover Reason for Consultation: Altered mental status secondary to sepsis history of kidney transplant 1997, status post bilateral nephrectomy ileal conduit now urosepsis ID has been consulted Notified:: Office Spoke with:: Marissa Date Notified:: 06/18/18 Time Notified:: 11:58 Comments:: Waiting english as a second language instructor back -- [place] [id number] Ordering Provider: RADHA DS: Summary 1. Metabolic Encephalopathy resolved 2. Uremic Encephalopathy resolved 3. SHYANNE on CKD, now on HD 4. E.Coli, Klebsiella UTI This patient is a 58 y/o male with a hx of spina bifida, s/p b/l Nephrectomy in 1989, s/p Left kidney transplant in 1997, and gout. The patient was found to be confused at home and short of breath. He was sent to our emergency departement where he was subsequently intubated and found to be in Renal Failure. The patient was admitted to the Intensive care unit where he was emergently placed on HD. Nephrology was consulted to evaluate the patient. His status improved after the initiation of HD and he was then extubated successfully. Patient is doing much better as of today and now had a perma cath placed this morning that is ready for use. He was also found to have a UTI which grew E. coli and Klebsiella. ID was following the patient and recommendations are to keep IV antibiotics for two weeks on HD days after HD. He will continue HD on M, W, F. 5. HTN Continue Home medications for elevated blood pressure. BP is currently stable. 6. Gout Uric acid levels normal Pain in his foot has improved. Time Spent with Patient Total time spent providing and/or coordinating discharge services: 35 min Greater than 30 minutes Quality: VTE Deep Vein Thrombosis/Pulmonary Embolism Present on Admission: No Exam Narrative Exam Narrative: S1S2 CTA b/l, Perma cath right side of chest. Abd soft, nontender, bowel sounds positive No edema of the exts No focal neuro deficits Results Labs on day of discharge: Labs from last 24 hours 06/21/18 06:10 Sodium 136 Potassium 4.0 Chloride 97 L Carbon Dioxide 27.5 Anion Gap 12 BUN 59 H Creatinine 9.41 H Estimated GFR 6 L Random Glucose 78 Calcium 9.1 Magnesium 2.4 Iron 63 L TIBC 206 L % Saturation 30.6 Ferritin 224 Preliminary micro results at discharge 06/17/18 10:16 Aerobic Blood Culture - Preliminary Blood - Peripheral No growth in 4 days Anaerobic Blood Culture - Preliminary No growth in 4 days 06/17/18 10:10 Aerobic Blood Culture - Preliminary Blood - Peripheral No growth in 4 days Anaerobic Blood Culture - Preliminary No growth in 4 days Impressions ITS Impressions Abdomen/Pelvis CT 06/15/18 21:01 CONCLUSION: Nonspecific CT appearance of the abdomen and pelvis with no definite acute findings. Head CT 06/15/18 21:22 CONCLUSION: Motion degraded exam grossly negative for acute intracranial process. . Head MRI 06/16/18 00:00 CONCLUSION: No acute intracranial findings Chest X-Ray 06/18/18 04:00 CONCLUSION: Slightly improved lung volumes Discharge Plan Discharge Disposition Patient Disposition: Discharge Home Discharge Order Discharge Orders: Discharge Order (Routine); Ordered 06/22/18 Ordered By: Nikole Kaufman Physicians Team Primary Care Provider: Primary Care Jo Zhong Attending Provider: Nikole Kaufman Other Providers: Timo Mix ; Anaya Smith ; Tamara Stevens Rxs /Orders / Referrals /Forms Prescriptions: Continue atorvastatin 20 mg Tablet 20 mg PO DAILY RF: 0 ondansetron HCl [Zofran] 8 mg Tablet 8 mg PO TID PRN (Reason: Nausea) RF: 0 cyanocobalamin (vitamin B-12) 1,000 mcg Tablet 1,000 mcg PO DAILY RF: 0 epoetin pedro [Procrit] 20,000 unit/mL Solution 20,000 unit SUBCUT QMONTH RF: 0 oxycodone-acetaminophen 10-325 mg Tablet 1 tab PO Q6H PRN (Reason: Acute Pain) RF: 0 amlodipine 10 mg Tablet 10 mg PO DAILY RF: 0 pantoprazole [Protonix] 40 mg Tablet,Delayed Release (Dr/Ec) 40 mg PO DAILY RF: 0 calcitriol 0.5 mcg Capsule 0.5 mcg PO DAILY RF: 0 sirolimus 2 mg Tablet 2 mg PO DAILY RF: 0 tacrolimus 1 mg Capsule,Extended Release 24hr 1 mg PO QAM RF: 0 Discontinued doxycycline hyclate 100 mg Capsule 100 mg PO DAILY RF: 0 Referrals: Primary Care Jo Zhong [Primary Care Provider] - See Instructions ( Follow up with your Primary care if you do not have one: *[facility] offers same day APPT. Call the morning of you would like to be seen; Office opens at 8:00am. [facility] Address: [address] [place] [address] ) Discharge Instructions Patient Printed Instructions: Acute Kidney Injury (GEN), Chronic Kidney Disease (GEN), Acute Nausea and Vomiting (GEN) Additional Instructions: Continue HD as schedule [facility]. Continue Cefepime for two weeks for pyelonephritis on HD days after HD. Status ED Status: Left Department Discharge Information Discharge Date/Time: 06/22/18 11:39
--- NOTE | 2018-06-21 13:21 | P.PNID ---
Subjective Remarks: ID X cover for Dr Stevens chart was reviewed Patient is a 58-year-old male immunosuppresserd (sirolimus+ tcrolimus), renal transplant since 1989 with ARF/CKD in transplant back on HD, presented to the hospital for evaluation of change in mental status. Patient has had an ileal conduit, and had bilateral nephrectomy done in the past. He had his kidney transplant in 1989. Found to have UTI Urine culture is now showing E.coli and Klebsiella. Blood cultures on admission are negative. Improved on abx, specimen from Ileostomy site. Transferred to floor Antibiotics: cefpeime linezolid IV Lines: Line sites with no e.o infection. Past Medical History: reviewed Allergies/Adverse Reactions: Allergies iron dextran complex Allergy (Verified 06/15/18 21:01) rash Objective Vital Signs 06/20/18 16:00 06/20/18 20:00 06/21/18 00:00 Temperature 98.4 F 98.2 F 98.1 F Pulse Rate 84 75 79 Respiratory Rate 17 18 18 Blood Pressure 125/63 123/65 131/67 Pulse Oximetry 96 98 99 06/21/18 08:00 06/21/18 09:40 06/21/18 09:55 Temperature 97.9 F 98.6 F Pulse Rate 80 90 88 Respiratory Rate 17 18 18 Blood Pressure 151/74 H 126/66 124/71 Pulse Oximetry 99 98 97 06/21/18 10:25 06/21/18 11:10 06/21/18 11:46 Temperature 98 F 98.0 F Pulse Rate 88 80 86 Respiratory Rate 18 18 17 Blood Pressure 127/71 130/63 127/71 Pulse Oximetry 98 99 Intake & Output 06/20/18 06/21/18 06/21/18 18:59 06:59 18:59 Intake Total 500 / 500 100 / 100 Balance 500 / 500 100 / 100 Weight 73.7 kg Intake: IV 100 / 100 Rocephin Inj 1,000 MG In NS Inj 100 / 100 100 ML @ 200 mls/hr IV.SIG Q24H TEETEE Rx#:[id number] Oral 500 / 500 Other: # Voids 2 2 Date of Last Bowel Movement 06/19/18 # Bowel Movements 0 06/17/18 10:16 Blood - Peripheral Aerobic Blood Culture - Preliminary No growth in 4 days 06/17/18 10:16 Blood - Peripheral Anaerobic Blood Culture - Preliminary No growth in 4 days 06/17/18 10:10 Blood - Peripheral Aerobic Blood Culture - Preliminary No growth in 4 days 06/17/18 10:10 Blood - Peripheral Anaerobic Blood Culture - Preliminary No growth in 4 days 06/16/18 15:30 Sputum - Endotracheal Gram Stain - Final 06/16/18 15:30 Sputum - Endotracheal Sputum Culture - Final Staphylococcus aureus 06/16/18 00:00 Clean Catch Urine Urine Culture - Final Klebsiella oxytoca Escherichia coli Lab - Hematology Results 06/20/18 06:23 WBC 9.7 RBC 3.28 L Hgb 8.7 L Hct 27.0 L MCV 82.4 MCH 26.5 L MCHC 32.2 RDW 16.1 Plt Count 319 MPV 8.2 Neut % (Auto) 81.5 H Lymph % (Auto) 10.5 [place] % (Auto) 7.0 Eos % (Auto) 0.6 Baso % (Auto) 0.4 Neut # (Auto) 7.9 H Lymph # (Auto) 1.0 [place] # (Auto) 0.7 Eos # (Auto) 0.1 Baso # (Auto) 0.0 WBC Differential . Differential Comment Auto diff final Lab - Chemistry Results 06/20/18 06/21/18 06:23 06:10 Sodium 138 136 Potassium 4.1 4.0 Chloride 97 L 97 L Carbon Dioxide 26.9 27.5 Anion Gap 14 12 BUN 50 H 59 H Creatinine 8.33 H 9.41 H Estimated GFR 7 L 6 L Random Glucose 65 L 78 Uric Acid 5.6 Calcium 9.4 9.1 Magnesium 2.4 Iron 63 L TIBC 206 L % Saturation 30.6 Ferritin 224 Total Bilirubin 0.3 AST 34 ALT 40 Alkaline Phosphatase 143 H Total Protein 7.5 D Albumin 3.1 L Imaging: ITS Impressions Abdomen/Pelvis CT 06/15/18 21:01 CONCLUSION: Nonspecific CT appearance of the abdomen and pelvis with no definite acute findings. Head CT 06/15/18 21:22 CONCLUSION: Motion degraded exam grossly negative for acute intracranial process. . Head MRI 06/16/18 00:00 CONCLUSION: No acute intracranial findings Chest X-Ray 06/18/18 04:00 CONCLUSION: Slightly improved lung volumes Physical Exam: GENERAL: NAD SKIN: Warm and dry. NO rash EYES: Pupils equal and round. No scleral icterus. No injection or drainage. CARDIOVASCULAR: Regular rate and rhythm. RESPIRATORY: No accessory muscle use. Clear to auscultation. Breath sounds equal bilaterally. GASTROINTESTINAL: Abdomen soft, non-tender, nondistended. MUSCULOSKELETAL: Extremities without clubbing, cyanosis, or edema. NEUROLOGICAL: Awake and alert. Grossly non focal. Normal speech. PSYCHIATRIC: Appropriate mood and affect; Hd cath site ok. Ileostomy site ok Assessment and Plan - Plan IMpression Acute renal failure on top of chronic renal failure - S/P renal transplant 1989 - now back on HD - on immunosuppression in attempt to salvage kidney UTI, GNR, has ileal conduit - Kleb, E.coli Respiratory failure due to pulmonary edema, extubated, now on nasal O2 - CXR better MSSA in sputum Recommendation Discontinue Ceftriaxone IV Start Cefepime IV dose after HD. Has HD permacath in place. Plan on treating as possible pyelonephritis of transplanted kidney for total of 2 weeks. HD being set up as outpatient. Cefepime IV post hospital infusion orders for HD in chart. But may need changed to Ceftazidime if HD center does not stock cefepime IV. tammy Veneer Measurer. Addendum: digital learning platforms manager informs me Fortaz is preferred by HD center.Updated infusion orders. Will sign off please call back if any change in clinical condition or questions.
--- NOTE | 2018-06-21 13:36 | P.DCO ---
Post Hospital Infusion Therapy - Infusion Therapy Location of Infusion Therapy: Dialysis Center Appointment Date: 06/23/18 - Patient Information Patient Weight: 73.7 kg - Diagnosis (1) Pyelonephritis of transplanted kidney Code(s): T86.19 - Other complication of kidney transplant; N12 - Tubulo- interstitial nephritis, not specified as acute or chronic - Administer Medication Ceftazidime Dose: 2 grams IV Directions: q 48 hours with Hemodialysis M/W/F Start Treatment: 06/23/18 Stop Treatment: 07/01/18 - Additional Information Venous Access: Tunneled Catheter Additional Instructions: [x] Peripheral flush and dressing changes per protocol [x] Implanted port and central gas line repairer: * Implanted port: 10 ml Normal Saline followed by 5 ml Heparin 100 units/ml Heparin flush after each use and monthly to maintain. [] May leave port accessed during therapy. [] May leave peripheral site accessed for duration of therapy. [x] If patient has SOB or respiratory distress, check oxygen saturation. If less than 90% or clinical signs of respiratory distress, administer oxygen at 2 L/min. via nasal cannula and notify physician. [x] Anaphylaxis/Reaction orders: * Stop infusion. * Keep IV line open with saline flush. * Notify physician. * Monitor vital signs every 15 minutes until symptoms resolve. * Check Oxygen saturation; Oxygen at 2 L/min. via nasal cannula if less than 90% or clinical signs of respiratory distress. * Administer diphenhydramine (Benadryl) 25 mg IV STAT, (unless patient has received as pre-med). May repeat once, if necessary. * Solu-Cortef 250 mg IVP over 30-60 seconds, use 100 mg vials for each dissolution. * Epinephrine (1mg/1 ml) 0.3 mg subcutaneously or IVP now with any signs of respiratory distress. * Check with physician for new additional pre-med orders if patient is re- challenged or re-treated. [x] May remove PICC line when treatment complete, after confirming with Physician. [x] If the patient is admitted to the hospital, the ED, or transferred via [facility] , complete transfer form including medication reconciliation order sheet. Weekly Labs: CBC w/diff, Creatinine, CRP, LFTs (Hepatic Function Test) Additional Information: Please draw weekly labs and fax to following numbers. Please call with abnormal lab values or change in clinical condition to following number. [facility] Call center - Case Management Consult Case Management Consult-IVF: Yes - Patient Information Allergies iron dextran complex Allergy (Verified 06/15/18 21:01) rash
--- NOTE | 2018-06-21 16:52 | P.PNNP ---
Subjective Interval history: Seen during hemodialysis tolerating well. No shortness of breath, nausea, or vomiting. <Christelle Mckenzie - Last Filed: 06/21/18 16:41> Physical Exam Vital signs: Vital Signs 06/20/18 20:00 06/21/18 00:00 06/21/18 08:00 Temperature 98.2 F 98.1 F 97.9 F Pulse Rate 75 79 80 Respiratory Rate 18 18 17 Blood Pressure 123/65 131/67 151/74 H Pulse Oximetry 98 99 99 06/21/18 09:40 06/21/18 09:55 06/21/18 10:25 Temperature 98.6 F Pulse Rate 90 88 88 Respiratory Rate 18 18 18 Blood Pressure 126/66 124/71 127/71 Pulse Oximetry 98 97 98 06/21/18 11:10 06/21/18 11:46 06/21/18 16:00 Temperature 98 F 98.0 F 98.4 F Pulse Rate 80 86 88 Respiratory Rate 18 17 17 Blood Pressure 130/63 127/71 136/65 Pulse Oximetry 99 97 Intake & Output 06/20/18 06/21/18 06/21/18 18:59 06:59 18:59 Intake Total 500 / 500 100 / 100 Balance 500 / 500 100 / 100 Weight 73.7 kg 73.7 kg Intake: IV 100 / 100 Rocephin Inj 1,000 MG In NS Inj 100 / 100 100 ML @ 200 mls/hr IV.SIG Q24H TEETEE Rx#:[id number] Oral 500 / 500 Other: # Voids 2 2 Date of Last Bowel Movement 06/19/18 # Bowel Movements 0 Narrative: GENERAL: Alert, no SOB, doing better. SKIN: Warm and dry. NECK: Supple, trachea midline. No JVD CARDIOVASCULAR: Regular rate and rhythm without murmurs, gallops, or rubs. Permacath right chest wall. RESPIRATORY: Breath sounds diminished bilaterally. No accessory muscle use. GASTROINTESTINAL: Abdomen soft, non-tender, nondistended. +BS MUSCULOSKELETAL: No cyanosis, or edema. BACK: Nontender without obvious deformity. No CVA tenderness. <Christelle Mckenzie - Last Filed: 06/21/18 16:41> Vital signs: Vital Signs 06/20/18 20:00 06/21/18 00:00 06/21/18 08:00 Temperature 98.2 F 98.1 F 97.9 F Pulse Rate 75 79 80 Respiratory Rate 18 18 17 Blood Pressure 123/65 131/67 151/74 H Pulse Oximetry 98 99 99 06/21/18 09:40 06/21/18 09:55 06/21/18 10:25 Temperature 98.6 F Pulse Rate 90 88 88 Respiratory Rate 18 18 18 Blood Pressure 126/66 124/71 127/71 Pulse Oximetry 98 97 98 06/21/18 11:10 06/21/18 11:46 06/21/18 16:00 Temperature 98 F 98.0 F 98.4 F Pulse Rate 80 86 88 Respiratory Rate 18 17 17 Blood Pressure 130/63 127/71 136/65 Pulse Oximetry 99 97 Intake & Output 06/21/18 06/21/18 06/22/18 06:59 18:59 06:59 Intake Total 100 / 100 1300 / 1300 Balance 100 / 100 1300 / 1300 Weight 73.7 kg 73.7 kg Intake: IV 100 / 100 100 / 100 Maxipime Inj 2,000 MG In NS Inj 100 / 100 100 ML @ 200 mls/hr IV.SIG ONCE ONE Rx#:[id number] Rocephin Inj 1,000 MG In NS Inj 100 / 100 100 ML @ 200 mls/hr IV.SIG Q24H TEETEE Rx#:[id number] Oral 1200 / 1200 Other: # Voids 2 <Ronald Mix Q - Last Filed: 06/21/18 19:10> Assessment and Plan - Assessment (1) Chronic kidney disease (CKD) Code(s): N18.9 - Chronic kidney disease, unspecified Status: Acute (2) History of renal transplant Code(s): Z94.0 - Kidney transplant status Status: Acute (3) Respiratory failure Code(s): J96.90 - Respiratory failure, unspecified, unspecified whether with hypoxia or hypercapnia Status: Acute (4) Acute renal failure Code(s): N17.9 - Acute kidney failure, unspecified Status: Acute Qualifiers: Acute renal failure type: unspecified Qualified Code(s): N17.9 - Acute kidney failure, unspecified (5) Vomiting Code(s): R11.10 - Vomiting, unspecified Status: Acute Qualifiers: Vomiting type: unspecified Vomiting Intractability: non-intractable Nausea presence: with nausea Qualified Code(s): R11.2 - Nausea with vomiting, unspecified - Plan Patient with history of renal transplant done in 1989, Admitted with SOB and went into respiratory failure His old labs seen, has Creatinine of 3.9 in 2017. On Epogen with dialysis Continue phoslo Perma cath placement today Seen during hemodialysis will remove fluid as tolerated. Can be discharged when outpatient hemodialysis is arranged. <Christelle Mckenzie - Last Filed: 06/21/18 16:41> - Assessment (1) Chronic kidney disease (CKD) Code(s): N18.9 - Chronic kidney disease, unspecified Status: Acute (2) History of renal transplant Code(s): Z94.0 - Kidney transplant status Status: Acute (3) Respiratory failure Code(s): J96.90 - Respiratory failure, unspecified, unspecified whether with hypoxia or hypercapnia Status: Acute (4) Acute renal failure Code(s): N17.9 - Acute kidney failure, unspecified Status: Acute Qualifiers: Acute renal failure type: unspecified Qualified Code(s): N17.9 - Acute kidney failure, unspecified (5) Vomiting Code(s): R11.10 - Vomiting, unspecified Status: Acute Qualifiers: Vomiting type: unspecified Vomiting Intractability: non-intractable Nausea presence: with nausea Qualified Code(s): R11.2 - Nausea with vomiting, unspecified - Plan Patient seen and examined, agree with above. PermCath done, HD today. For Out Patient HD arrangement. <Timo Mix - Last Filed: 06/21/18 19:10>
[2018-06-22] MEDS: Oral Hygiene Kit OROPHARYNG SCH ×2 (00:26→03:24)
[2018-06-22] MEDS: SIROLIMUS 2 MG PO SCH (05:42)
[2018-06-22] MEDS: Chlorhexidine 0.12% Oral Kit 15 ML UDC OROPHARYNG SCH (08:22)
[2018-06-22] MEDS: Vitamin B Complex/Vit C/Folic Tablet PO SCH (08:25)
[2018-06-22] MEDS: Calcium Acetate 667 MG Capsule PO SCH (08:25)
[2018-06-22] MEDS: predniSONE 10 MG Tablet PO SCH (08:25)
[2018-06-22] MEDS: amLODIPine 10 MG Tablet PO SCH (08:25)
[2018-06-22] MEDS: Senna/Docusate Sodium 8.6/50 MG Tablet PO SCH (08:26)
[2018-06-22] MEDS: Heparin - SQ 10,000 UNITS/ML Vial SQ SCH (08:26)
--- NOTE | 2018-06-22 08:48 | IR ---
EXAM DATE: 06/21/2018 10:51 AM EST AGE/SEX: 58 years / Male INDICATIONS: Patient presents with chronic kidney disease secondary to renal transplant in need of d ialysis catheter placement for hemodialysis. CLINICAL DATA: This is the patient's initial encounter. Patient reports that signs and symptoms have been present for 4 - 6 days and indicates a pain score of 4/10. MEDICAL/SURGICAL HISTORY: . Chronic kidney disease, Gastroparesis, Hyperlipidemia, HTN, Spina b ifida. . Status post kidney transplant, Spinal cord stimulator. COMPARISON: No prior exams available for comparison. FLUORO TIME (min): 0.4 IMAGE SERIES: 2 RADIATION DOSE: 8.8 mGy CAK ACCESS SITE: Right internal jugular vein SEDATION TIME (min): 30 MEDICATION(S): 5 mg midazolam (Versed) IV 250 mcg fentanyl (Sublimaze) IV Vancomycin within 2 hrs of procedure, Ancef (or alternative) within 1 hr of procedure. DEVICE(S): 15fr 19cm Palindrom . . PROCEDURE: 1. Ultrasound-guided venipuncture. 2. PermaCath placement. 3. Conscious sedation with continuous EKG and oximetry monitoring. The risks, benefits and alternatives to the procedure were explained and verbal and written consent w as obtained. The site was prepped in sterile fashion. Full sterile technique was used, including ca p, mask, sterile gloves and gown and a large sterile sheet. Hand hygiene and 2% chlorhexidine and/or betadine/alcohol prep was utilized per protocol for cutaneous antisepsis. Sterile gel and sterile p robe cover were utilized for ultrasound guidance. The skin and subcutaneous tissues were infiltrated with local anesthetic solution. With ultrasound and fluoroscopic guidance a dermatotomy was created over the right internal jugular v ein. A micropuncture set was used to access the targeted vein and serial dilatation was performed to accept the prescribed length catheter. A subcutaneous tunnel was created in a retrograde fashion th e catheter was pulled through the tunnel. The catheter was flushed and assembled and locked with hep lindsey. The catheter was sutured in place. Conscious sedation was performed with the prescribed dosages and duration as above in the presence of an independent trained radiology nurse to assist in the monitoring of the patient. EKG and oximetry remained stable throughout the procedure. The patient tolerated the procedure well and there were n o complications. The patient was sent to post anesthesia recovery in stable condition. CONCLUSION: 1. Uncomplicated PermaCath placement as above. Electronically signed by: Terence Dalton MD Board Certified Radiologist 06/22/2018 8:47 AM EST
[2018-06-22 09:09] VITALS: BP 145/65; PULSE 85; RESP 18; TEMP 98.1; O2SAT 100
[2018-06-22] MEDS: Morphine Sulfate Inj 2 MG/ML Vial IV.PUSH PRN (09:19)
--- NOTE | 2018-06-22 09:57 | IR ---
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 CLINICAL DATA: This is the patient's initial encounter. Patient reports that signs and symptoms have been present for 4 - 6 days and indicates a pain score of 4/10. MEDICAL/SURGICAL HISTORY: . Chronic kidney disease, Gastroparesis, HTN, Spina bifida, Hyperlipi demia. . Status post kidney transplant, Spinal cord stimulator. COMPARISON: No prior exams available for comparison. IMAGE SERIES: 0 RADIATION DOSE: 0 CAK ACCESS SITE: DEVICE(S): PROCEDURE: 1. Temporary central venous catheter removal. The prescribed catheter was removed intact and hemostasis was achieved with direct pressure. The sit e was dressed appropriately. The patient tolerated the procedure well. CONCLUSION: 1. Uncomplicated catheter removal. Electronically signed by: Terence Dalton MD Board Certified Radiologist 06/22/2018 9:56 AM EST
--- NOTE | 2018-06-22 11:09 | P.DS ---
DS: Providers Date of admission: 06/15/18 22:46 Primary care physician: No Primary Care Physician Consults: 06/16/18 01:43 Consult to Nephrology Stat Consulting Provider: Timo Mix For STAT consult, spoke directly to:: Dr. Mix Does the patient have a Sizing Machine Operator who follows them?: Yes Preferred Nephrology Truck Safety Inspector:: Supervisor Data Processing Physician Reason for Consultation: Acute renal failure Notified:: Service Spoke with:: Nita Date Notified:: 06/16/18 Time Notified:: 01:49 Ordering Provider: AGNIESZKA 06/16/18 13:33 Consult to Cullet Washer Stat Consulting Provider: Anaya Smith For STAT consult, spoke directly to:: Dr. Smith Reason for Consultation: Obtundation, CO2 narcosis. Notified:: Service Spoke with:: KEVIN Date Notified:: 06/16/18 Time Notified:: 13:37 Ordering Provider: MAHSA 06/18/18 11:29 Consult to Infectious Diseases Routine Consulting Provider: Tamara Stevens Preferred Truck Safety Inspector:: Keke Clemons Reason for Consultation: 58-year-old male status post kidney transplant 1995 with ileal conduit now with urosepsis noted gram-negative rods. Currently on tacrolimus and sirolimus Notified:: Service Spoke with:: NITO Date Notified:: 06/18/18 Time Notified:: 11:39 Ordering Provider: RADHA 06/18/18 11:47 Consult to Hospitalist Routine Consulting Provider: Hood Glover Reason for Consultation: Altered mental status secondary to sepsis history of kidney transplant 1997, status post bilateral nephrectomy ileal conduit now urosepsis ID has been consulted Notified:: Office Spoke with:: Marissa Date Notified:: 06/18/18 Time Notified:: 11:58 Comments:: Waiting foundation coordinator back -- [place] [id number] Ordering Provider: RADHA DS: Summary 06/22/18 No change in plan for discharge. Patient was awaiting authorization from his insurance company for HD planning and set up. He will be discharged home today. Case discussed with case management. Patient is doing good and is ready to go home. 1. Metabolic Encephalopathy resolved 2. Uremic Encephalopathy resolved 3. SHYANNE on CKD, now on HD 4. E.Coli, Klebsiella UTI This patient is a 58 y/o male with a hx of spina bifida, s/p b/l Nephrectomy in 1989, s/p Left kidney transplant in 1997, and gout. The patient was found to be confused at home and short of breath. He was sent to our emergency departement where he was subsequently intubated and found to be in Renal Failure. The patient was admitted to the Intensive care unit where he was emergently placed on HD. Nephrology was consulted to evaluate the patient. His status improved after the initiation of HD and he was then extubated successfully. Patient is doing much better as of today and now had a perma cath placed this morning that is ready for use. He was also found to have a UTI which grew E. coli and Klebsiella. ID was following the patient and recommendations are to keep IV antibiotics for two weeks on HD days after HD. He will continue HD on M, W, F. 5. HTN Continue Home medications for elevated blood pressure. BP is currently stable. 6. Gout Uric acid levels normal Pain in his foot has improved. Time Spent with Patient Total time spent providing and/or coordinating discharge services: Quality: VTE Deep Vein Thrombosis/Pulmonary Embolism Present on Admission: No Exam Narrative Exam Narrative: S1S2 CTA b/l, Perma cath right side of chest. Abd soft, nontender, bowel sounds positive No edema of the exts No focal neuro deficits Results Labs on day of discharge: Labs from last 24 hours 06/21/18 06/21/18 19: 16:09 POC Glucose 112 H 150 H Impressions ITS Impressions Abdomen/Pelvis CT 06/15/18 21:01 CONCLUSION: Nonspecific CT appearance of the abdomen and pelvis with no definite acute findings. Head CT 06/15/18 21:22 CONCLUSION: Motion degraded exam grossly negative for acute intracranial process. . Head MRI 06/16/18 00:00 CONCLUSION: No acute intracranial findings Chest X-Ray 06/18/18 04:00 CONCLUSION: Slightly improved lung volumes Central Venous Line 06/21/18 00:00 CONCLUSION: 1. Uncomplicated PermaCath placement as above. Tube Removal 06/21/18 00:00 CONCLUSION: 1. Uncomplicated catheter removal. Discharge Plan Discharge Disposition Patient Disposition: Discharge Home Discharge Order Discharge Orders: Discharge Order (Routine); Ordered 06/22/18 Ordered By: Nikole Kaufman Physicians Team ED Provider: Chika Galeana Primary Care Provider: Jo Crocker Attending Provider: Nikole Kaufman Other Providers: Timo Mix ; Anaya Smith ; Tamara Stevens Rxs /Orders / Referrals /Forms Prescriptions: Continue atorvastatin 20 mg Tablet 20 mg PO DAILY RF: 0 ondansetron HCl [Zofran] 8 mg Tablet 8 mg PO TID PRN (Reason: Nausea) RF: 0 cyanocobalamin (vitamin B-12) 1,000 mcg Tablet 1,000 mcg PO DAILY RF: 0 epoetin pedro [Procrit] 20,000 unit/mL Solution 20,000 unit SUBCUT QMONTH RF: 0 oxycodone-acetaminophen 10-325 mg Tablet 1 tab PO Q6H PRN (Reason: Acute Pain) RF: 0 amlodipine 10 mg Tablet 10 mg PO DAILY RF: 0 pantoprazole [Protonix] 40 mg Tablet,Delayed Release (Dr/Ec) 40 mg PO DAILY RF: 0 calcitriol 0.5 mcg Capsule 0.5 mcg PO DAILY RF: 0 sirolimus 2 mg Tablet 2 mg PO DAILY RF: 0 tacrolimus 1 mg Capsule,Extended Release 24hr 1 mg PO QAM RF: 0 Discontinued doxycycline hyclate 100 mg Capsule 100 mg PO DAILY RF: 0 Referrals: Primary Care Jo Zhong [Primary Care Provider] - See Instructions Discharge Instructions Additional Instructions: Continue HD as schedule in [facility]. Continue Cefepime for two weeks for pyelonephritis on HD days after HD. Status ED Status: Left Department
--- NOTE | 2018-06-22 15:38 | P.PNNP ---
Subjective Interval history: Seen in AM, at bedside. Hemodialysis yesterday tolerated well. Plan for discharge home today. <Christelle Mckenzie - Last Filed: 06/22/18 15:36> Physical Exam Vital signs: Vital Signs 06/21/18 16:00 06/21/18 20:00 06/22/18 00:00 Temperature 98.4 F 98.3 F 98.5 F Pulse Rate 88 80 81 Respiratory Rate 17 18 16 Blood Pressure 136/65 117/58 L 157/72 H Pulse Oximetry 97 98 98 06/22/18 08:00 Temperature 98.1 F Pulse Rate 85 Respiratory Rate 18 Blood Pressure 145/65 H Pulse Oximetry 100 Intake & Output 06/21/18 06/22/18 06/22/18 18:59 06:59 18:59 Intake Total 1300 / 1300 400 / 400 Output Total 1999 Balance 1300 / 1300 -1600 / -1600 Weight 73.5 kg 73.7 kg Intake: IV 100 / 100 100 / 100 Maxipime Inj 2,000 MG In NS Inj 100 / 100 100 / 100 100 ML @ 200 mls/hr IV.SIG UNSCH [facility] Rx#:[id number] Oral 1200 / 1200 300 / 300 Output: Hemodialysis Amount 1999 Other: # Voids 3 Narrative: GENERAL: Alert, no SOB, doing better. SKIN: Warm and dry. NECK: Supple, trachea midline. No JVD CARDIOVASCULAR: Regular rate and rhythm without murmurs, gallops, or rubs. Permacath right chest wall. RESPIRATORY: Breath sounds diminished bilaterally. No accessory muscle use. GASTROINTESTINAL: Abdomen soft, non-tender, nondistended. +BS MUSCULOSKELETAL: No cyanosis, or edema. BACK: Nontender without obvious deformity. No CVA tenderness. <Christelle Mckenzie - Last Filed: 06/22/18 15:36> Vital signs: Vital Signs 06/22/18 00:00 06/22/18 08:00 Temperature 98.5 F 98.1 F Pulse Rate 81 85 Respiratory Rate 16 18 Blood Pressure 157/72 H 145/65 H Pulse Oximetry 98 100 Intake & Output 06/22/18 06/22/18 06/23/18 06:59 18:59 06:59 Intake Total 400 / 400 Output Total 1999 Balance -1600 / -1600 Weight 73.5 kg 73.7 kg Intake: IV 100 / 100 Maxipime Inj 2,000 MG In NS Inj 100 / 100 100 ML @ 200 mls/hr IV.SIG UNSCH [facility] Rx#:[id number] Oral 300 / 300 Output: Hemodialysis Amount 1999 Other: # Voids 3 <Timo Mix - Last Filed: 06/22/18 20:45> Assessment and Plan - Assessment (1) Chronic kidney disease (CKD) Code(s): N18.9 - Chronic kidney disease, unspecified Status: Acute (2) History of renal transplant Code(s): Z94.0 - Kidney transplant status Status: Acute (3) Respiratory failure Code(s): J96.90 - Respiratory failure, unspecified, unspecified whether with hypoxia or hypercapnia Status: Acute (4) Acute renal failure Code(s): N17.9 - Acute kidney failure, unspecified Status: Acute Qualifiers: Acute renal failure type: unspecified Qualified Code(s): N17.9 - Acute kidney failure, unspecified (5) Vomiting Code(s): R11.10 - Vomiting, unspecified Status: Acute Qualifiers: Vomiting type: unspecified Vomiting Intractability: non-intractable Nausea presence: with nausea Qualified Code(s): R11.2 - Nausea with vomiting, unspecified - Plan Patient with history of renal transplant done in 1989, Admitted with SOB and went into respiratory failure His old labs seen, has Creatinine of 3.9 in 2017. On Epogen with dialysis Continue [facility] Plan for discharge home today Outpatient hemodialysis with Dr. Nicole in [place]. <Christelle Mckenzie - Last Filed: 06/22/18 15:36> - Assessment (1) Chronic kidney disease (CKD) Code(s): N18.9 - Chronic kidney disease, unspecified Status: Acute (2) History of renal transplant Code(s): Z94.0 - Kidney transplant status Status: Acute (3) Respiratory failure Code(s): J96.90 - Respiratory failure, unspecified, unspecified whether with hypoxia or hypercapnia Status: Acute (4) Acute renal failure Code(s): N17.9 - Acute kidney failure, unspecified Status: Acute Qualifiers: Acute renal failure type: unspecified Qualified Code(s): N17.9 - Acute kidney failure, unspecified (5) Vomiting Code(s): R11.10 - Vomiting, unspecified Status: Acute Qualifiers: Vomiting type: unspecified Vomiting Intractability: non-intractable Nausea presence: with nausea Qualified Code(s): R11.2 - Nausea with vomiting, unspecified - Plan Patient seen and examined, agree with above. Patient for discharge, to follow with Dr. Nicole. If no improvement in renal function to taper off immunosuppression. Also will need AVF. <Timo Mix - Last Filed: 06/22/18 20:45>
== END 2018-06-22 11:39 | disposition home or self-care (01) | DRG 698 ==
LOC: NEPC 20:12 → NEDA 22:46 → HIMC 06-16 02:45 → N07 06-19 15:51
PROVIDERS: ADMIT Hospitalist; ATTEND Hospitalist
CPT/HCPCS: 31500; 36558; 36600; 70450; 70551; 71010; 71045; 74176; 75998; 76937; 77001; 80048; 80053; 80061; 80074; 80076; 80197; 80307; 81001; 82140; 82550; 82552; 82728; 82805; 82948; 82962; 83520; 83540; 83550; 83605; 83690; 83735; 83880; 84100; 84484; 84550; 85025; 85610; 85730; 86403; 87040; 87070; 87077; 87086; 87147; 87186; 87205; 87641; 90774; 90775; 90784; 90935; 93005; 94002; 94003; 94150; 94640; 94656; 94657; 94664; 94665; 96374; 96375; 97162; 97167; 99145; 99152; 99153; 99291; C1750; C1769; C8952; J0456; J0690; J0692; J0696; J0886; J1580; J1644; J2020; J2250; J2270; J2405; J2704; J3010; J3370; J7030; J7050; J7506; J7507; J7512; J7520; Q4055; Q4081